=== PATIENT | female | born 1945 ===

== ENCOUNTER 2018-11-05 16:44 | Inpatient (IN) | payer MEDICARE ==
[2018-11-05 17:01] VITALS: BMI 15.5
--- NOTE | 2018-11-05 17:07 | ED PDOC ---
Arrival/HPI - General Time Seen by Provider: 11/05/18 16:46 - History of Present Illness Narrative History of Present Illness (Text): 11/05/18 17:05 Patient is a 73 y/o F with COPD, on 2L home O2, presenting with shortness of breath. Reports worsening shortness of breath x 2 weeks. Reports using nebulizer without relief. Reports some leg swelling and dyspnea on exertion. Reports baseline cough. Denies fever, chest pain, abdominal pain, or urinary complaints. Family/Social History Family/Social History: No Known Family HX Allergies/Home Meds Allergies/Adverse Reactions: Allergies No Known Allergies Allergy (Unverified 11/05/18 17:00) Review of Systems - Review of Systems Constitutional: absent: Fatigue, Fevers Respiratory: SOB, Cough, Sputum, Wheezing Cardiovascular: Chest Pain, Edema. absent: Palpitations Gastrointestinal: absent: Abdominal Pain, Constipation, Diarrhea, Nausea, Vomiting Genitourinary Female: absent: Dysuria, Frequency Neurological: absent: Headache, Dizziness Physical Exam Vital Signs Temp Pulse Resp BP Pulse Ox 11/05/18 17:01 98.5 F 90 18 153/101 H 100 Temperature: Afebrile Blood Pressure: Normal Pulse: Regular Respiratory Rate: Tachypneic Appearance: Positive for: Well-Appearing, Non-Toxic Pain Distress: None Mental Status: Positive for: Alert and Oriented X 3 - Systems Exam Head: Present: Atraumatic, Normocephalic Pupils: Present: PERRL Extroacular Muscles: Present: EOMI Conjunctiva: Present: Normal Mouth: Present: Moist Mucous Membranes Neck: Present: Normal Range of Motion Respiratory/Chest: Present: Accessory Muscle Use, Wheezes, Rales Cardiovascular: Present: Regular Rate and Rhythm, Normal S1, S2. No: Murmurs Abdomen: No: Tenderness, Distention Upper Extremity: Present: Normal Inspection Lower Extremity: Present: Edema Medical Decision Making ED Course and Treatment: 11/05/18 17:06 EKG shows NSR at 89bpm with RBBB and t wave inversions in multiple leads with no prior for comparison. 11/05/18 18:27 Cxray shows chf vs r sided infiltrate. Trop x 1 negative. BNP elevated. Patient appears to be in new onset chf. Aspirin and lasix ordered. Duonebs and steroids ordered in case some component of copd. Pending cta 11/05/18 20:45 Nurse reported that patient desaturated after CTA. Went to reevaluate and patient reports feeling better. She is requesting medication to sleep. O2 sat:89% on 2L NC. Bipap ordered for symptom mgmt 11/05/18 20:48 Dr. Weeks at bedside and accepts patient to his service with pulmonary and cardiology consults. 11/05/18 21:05 IMPRESSION: 1. No evidence of PE. 2. Bilateral apical pleural bullae are noted; more pronounced on the right. 3. Questionable right upper lobe pneumonic infiltrate versus interstitial scarring. 4. Interstitial pulmonary fibrosis seen in the right middle lobe and right lower lobe. 5. 7.0 mm nodule in the left apexversus focal scarring. Tissue sampling could be considered. 6. Mediastinal and bihilar adenopathy noted. 7. A small right pleural effusion is present. 8. 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 11/05/18 21:06 - RAD Interpretation Radiology Orders: 11/05/18 17:00 CHEST PORTABLE [RAD] Stat Disposition/Present on Arrival - Present on Arrival Any Indicators Present on Arrival: No - Disposition Have Diagnosis and Disposition been Completed?: Yes Diagnosis: Congestive heart failure, COPD (chronic obstructive pulmonary disease) Disposition: HOSPITALIZED Disposition Time: 17:01 Patient Plan: Admission Patient Problems: Current Active Problems Problem Status Onset COPD (chronic obstructive pulmonary disease) Acute Congestive heart failure Acute Condition: FAIR Discharge Instructions (ExitCare): Heart Failure (ED)
[2018-11-05] MEDS: Albuterol-Ipratrop 3 mg / 0.5 (3 ml) UD IH SCH ×3 (17:27→18:04)
[2018-11-05 17:30] LABS: BASO # 0.01 K/mm3 (0.0-2.0); BASO % 0.2 % (0.0-3.0); EOS # 0.2 (0.0-0.7); EOS % 3.5 % (1.5-5.0); HEMOGLOBIN 9.9 g/dL (12.0-16.0); LYMPH # 0.8 (1.2-3.4); LYMPH % 13.1 % (22.0-35.0); MEAN CELL VOLUME 83.6 fl (80.0-105.0); MEAN CORPUSCULAR HEMOGLOBIN 25.8 pg (25.0-35.0); MEAN CORPUSCULAR HGB CONC 30.8 g/dl (31.0-37.0); MEAN PLATELET VOLUME 9.8 fl (7.0-11.0); MONO # 0.3 (0.1-0.6); MONO % 4.7 % (1.0-6.0); RBC 3.84 10^6/uL (3.5-6.1); RED CELL DISTRIBUTION WIDTH 17.4 % (11.5-14.5); WHITE BLOOD COUNT 6.4 10^3/uL (4.5-11.0)
[2018-11-05 17:39] LABS: ALB/GLOB RATIO 0.8 (1.1-1.8); ALBUMIN 3.8 g/dL (3.0-4.8); ALT/SGPT 9 U/L (7-56); AST/SGOT 27 U/L (14-36); BLOOD UREA NITROGEN 10 mg/dL (7-21); CALCIUM 9.2 mg/dL (8.4-10.5); GFR NON-AFRICAN AMERICAN > 60
[2018-11-05 17:51] LABS: B-TYPE NATRIURETIC PEPTIDE 4910 pg/mL (0-450); TROPONIN I < 0.01 ng/mL
[2018-11-05 17:59] LABS: INR 1.14; PARTIAL THROMBOPLASTIN TIME 31.4 Seconds (26.9-38.3); PROTHROMBIN TIME 12.7 SECONDS (9.4-12.5)
[2018-11-06] MEDS ORDERED: Levalbuterol 1.25 MG/3 ML Inhal Soln UD IH PRN (07:07)
--- NOTE | 2018-11-06 07:57 | RAD ---
Date of service: 11/05/2018 HISTORY: chest pain' COMPARISON: No prior. TECHNIQUE: 1 view obtained. FINDINGS: LUNGS: Infiltrates are seen in the right lower lobe in the right lung apex. PLEURA: Small right pleural effusion CARDIOVASCULAR: No aortic atherosclerotic calcification present. Mild cardiomegaly mild vascular congestion OSSEOUS STRUCTURES: No significant abnormalities. VISUALIZED UPPER ABDOMEN: Normal. OTHER FINDINGS: None. IMPRESSION: Infiltrates are seen in the right lower lobe and right lung apex
[2018-11-06] MEDS ORDERED: Arformoterol 15 mcg/2 ml Inh Sol IH SCH (08:00)
[2018-11-06] MEDS: Budesonide 0.5 mg/2 ml Inhal Susp UD IH SCH ×2 (08:08→19:17)
[2018-11-06] MEDS: Arformoterol 15 mcg/2 ml Inh Sol IH SCH ×2 (08:08→19:17)
[2018-11-06] MEDS: MethylPREDNISolone 40 mg Vial IVP SCH ×3 (08:32→22:40)
[2018-11-06] MEDS ORDERED: cefTRIAXone 1 gm 1 GM/100 ML BAG IVPB SCH (10:00)
[2018-11-06] MEDS ORDERED: Azithromycin 500MG/NS 250ml 500 MG/250 ML BAG IVPB SCH (10:00)
[2018-11-06] MEDS: Enoxaparin 40 mg Syringe SC SCH (10:19)
--- NOTE | 2018-11-06 11:15 | CT ---
Date of service: 11/05/2018 PROCEDURE: CT Chest with contrast (Pulmonary Angiogram) HISTORY: new onset sob, elevated d-dimer COMPARISON: None available. TECHNIQUE: Axial computed tomography images were obtained of the chest in the pulmonary arterial phase of enhancement. Coronal and sagittal reformatted images were created and reviewed. Intravenous contrast dose: 144 cc of Omnipaque 350 Radiation dose: Total exam DLP = 133.74 mGy-cm. This CT exam was performed using one or more of the following dose reduction techniques: Automated exposure control, adjustment of the mA and/or kV according to patient size, and/or use of iterative reconstruction technique. FINDINGS: PULMONARY ARTERIES: Unremarkable. No pulmonary embolism. AORTA: No acute findings. No thoracic aortic aneurysm. Minimal aortic calcification. Mild dilatation of the descending aorta LUNGS: There is pulmonary fibrosis most severe in the right lower lobe and the right upper lobe. Multiple bulla are seen. There is a 15 mm nodule in the right apex within the fibrosis. There is also a 6 mm nodule in the left lung apex. PLEURAL SPACES: Small right pleural effusion HEART: Unremarkable. No cardiomegaly. No significant pericardial effusion. LYMPH NODES: No lymphadenopathy. BONES, CHEST WALL: Unremarkable. No fracture or destructive lesion OTHER FINDINGS: The report concurs with the preliminary [facility] report IMPRESSION: There is pulmonary fibrosis most severe in the right lower lobe and the right upper lobe. Multiple bulla are seen. There is a 15 mm nodule in the right apex within the fibrosis. There is also a 6 mm nodule in the left lung apex. No evidence of pulmonary emboli
--- NOTE | 2018-11-06 11:40 | CARD ---
APPROVED REPORT Date of service: 11/05/2018 EKG Measurement Heart [id number] <Conclusion> Normal sinus rhythm Possible Left atrial enlargement Right bundle branch block T wave abnormality, consider inferolateral ischemia Abnormal ECG
[2018-11-06] MEDS ORDERED: Iohexol 300 100 ML IJ ONE (12:30)
--- NOTE | 2018-11-06 12:48 | CON ---
DATE OF CONSULTATION: 11/06/2018 REASON FOR CONSULTATION: Cardiac evaluation, elevated BNP, rule out congestive heart failure, shortness of breath. BRIEF CLINICAL HISTORY: This is a 73-year-old female with past medical history significant for colon cancer status post resection in 2003, history of lung CA status post chemoradiation, COPD, on home oxygen; used to take Percocet for chest pain, came in here with progressively worsening shortness of breath. The patient is on home oxygen 2 liters, history of COPD, also complained of chest pain and takes Percocet. The chest pain comes with taking a deep breath and on coughing. Denies any feeling that heaviness in the chest, something is sitting in the chest or ripping sensation in the chest. PAST MEDICAL HISTORY: Past history is significant for back pain, history of COPD, history of colon cancer status post resection in 2001, history of lung tumor status post chemo and radiation. SOCIAL HISTORY: He quit smoking 10-11 years ago. Denies any history of alcohol abuse. CURRENT MEDICATIONS: The patient is taking Tylenol with Codeine, ibuprofen, and Advair, and home oxygen 2 liters. REVIEW OF SYSTEMS: As per HPI. PHYSICAL EXAMINATION: As for the height of the patient, 5 feet 2 inches, weight of the patient is 85 pounds, body mass index 15.5 kg per meter square. VITAL SIGNS: Temperature afebrile, heart rate 84, blood pressure 137/89. HEENT: PERRLA. Extraocular muscles intact. NECK: Supple. No carotid bruits or thyromegaly. CHEST: Clear to auscultation. HEART: S1 and S2 regular. ABDOMEN: Soft. EXTREMITIES: Clubbing and cyanosis, negative. LABORATORY DATA: EKG shows normal sinus, rate of 81, left atrial abnormality, right bundle-branch block, T-wave inversion in precordial leads. Chest x-ray consistent with a right lower lobe pneumonia. Blood workup as follows: WBC 6.1, hemoglobin 9.1, hematocrit 32.1, platelet count 292. Chemistry shows sodium 141, potassium 4.5, chloride 102, carbon dioxide 28, anion gap of 60, BUN 10, and creatinine 0.8. Troponin 0.01. BNP 4972, total protein 8.5, bilirubin 3.8, albumin-globulin ratio is 0.8. IMPRESSION: A 73-year-old female with past medical history significant for colon cancer status post resection in 2003, history of lung tumor diagnosed in 2010, status post chemo, status post radiation, on home oxygen for chronic obstructive pulmonary disease, admitted with worsening shortness of breath, cannot rule out early pneumonia, right lower lobe. CAT scan result is officially pending, but shows no evidence of pulmonary embolism, bilateral pleural bleb noted, more pronounced at the right, possibly right lower lobe pneumonia, a pulmonary node of 7 mm inside, mediastinal and hilar lymphadenopathy noted. 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 RECOMMENDATIONS: We will get echo to assess LV function and etiology of congestive heart failure, so far no evidence of acute GA, more looks like acute exacerbation of COPD. Continue aggressive treatment of COPD. Continue gentle diuretics, keep negative fluid balance, and the patient is using noninvasive ventilator; continue the noninvasive ventilator BiPAP. We will follow with you. Overall, the patient's critical long-term prognosis is guarded. The patient is very cachectic. We will get lipid profile, TSH, hemoglobin A1c as well. Continue broad-spectrum antibiotic. Continue DVT prophylaxis. Continue IV Lasix. We will increase the Lasix to 40 b.i.d. for today and tomorrow, and then will change it to once a day from tomorrow. Thank you, Dr. Weeks, for providing us the opportunity of taking care of the patient. Rosa Griffin MD
--- NOTE | 2018-11-06 13:32 | CON ---
DATE: 11/06/2018 PULMONARY CONSULT NOTE REFERRING PHYSICIAN: Steven Weeks MD REASON FOR CONSULT: COPD and shortness of breath. HISTORY OF PRESENT ILLNESS: This is a 73-year-old female with past medical history significant for chronic obstructive pulmonary disease, emphysema, has home oxygen 2 liters at home. The patient presented to the emergency room complaining of worsening shortness of breath for the past 2 weeks. Has been using her nebulizer treatments without relief. Also reported in the ER lower extremity swelling, dyspnea on exertion. Today, the patient seen sitting up in bed with daughter at bedside. Reports that she has productive cough, increase shortness of breath with exertion. Daughter and the patient both report that the patient at baseline typically has cough and typically gets short of breath with extensive exertion. Reports that symptoms recently have worsened. The patient also reports nasal congestion. PAST MEDICAL HISTORY: As per history of present illness. ALLERGIES: NO KNOWN ALLERGIES. SOCIAL HISTORY: Former smoker, quit 10 years ago. No EtOH abuse. No illicit drug use. FAMILY HISTORY: No significant cardiopulmonary disease reported. MEDICATIONS: Reviewed. Tylenol 650 every 6 hours p.r.n. for mild pain, Brovana 15 mcg inhalation every 12 hours, aspirin 81 mg daily, Zithromax 500 mg daily, Pulmicort 0.5 mg inhalation twice a day, Rocephin 1 g daily, Lovenox 40 mg subcutaneous daily, Lasix 40 mg IV push daily and Xopenex 1.25 mg inhalation every 6 hours, Solu-Medrol 40 mg IV push every 8 hours, Protonix 40 mg daily and potassium chloride 20 mEq one time dose. REVIEW OF SYSTEMS: No headache, chest pain, abdominal pain, nausea, vomiting, diarrhea and leg pain reported. The patient reports that she has leg swelling at home and when coming to the emergency room, but leg swelling has got down. Still reports productive cough, shortness of breath with exertion and nasal congestion. PHYSICAL EXAMINATION: VITAL SIGNS: Blood pressure 137/89, pulse 84, temperature 98.9 and oxygen saturation 97% on BiPAP. GENERAL: No acute distress. HEENT: Moist mucous membranes. Mallampati score of 4. Crowded airway. NECK: Supple. No JVD. LUNGS: Decreased breath sounds bilaterally, some scattered rhonchi. CARDIOVASCULAR: S1 and S2. ABDOMEN: Soft and nontender. No distention. No organomegaly. EXTREMITIES: No bilateral lower extremity edema. NEUROLOGIC: Awake, alert and verbal. Following commands. LABORATORY DATA: Reviewed. WBC 6.4, RBC 3.84, hemoglobin 9.9, hematocrit 32.1 and platelets 292. PT 12.7, INR 1.14 and APTT 31.4. D-dimer 2291. Sodium 141, potassium 4.5, chloride 102, carbon dioxide 28, anion gap 16, BUN 10, creatinine 0.8, GFR is greater than 60, random glucose 93, calcium 9.2, total bilirubin 0.3, AST 27, ALT 9, alkaline phosphatase 105, lactate dehydrogenase 361, total creatine kinase 53, troponin less than 0.01, proBNP 4910, total protein 8.5, albumin 3.8, globulin 4.8 and albumin-globulin ratio 0.8. EKG shows normal sinus rhythm, possible left atrial enlargement, right bundle-branch block and T wave abnormality. Chest CT shows pulmonary fibrosis more severe to the right lower lobe and right upper lobe, multiple bullae 15 mm nodule in the right apex within the fibrosis fibrosis 6 mm nodule in the left lung apex. No evidence of pulmonary emboli. IMPRESSION AND PLAN: Chronic obstructive pulmonary disease, emphysema and congestive heart failure. The patient uses oxygen at home. Agreed with present treatment. Continue inhaled bronchodilators, antibiotic therapy, deep venous thrombosis prophylaxis and gastric prophylaxis. Continue current steroid dosing. We will order ABG to be done today. Procalcitonin level to be drawn today. We will place the patient on 310 mg at bedtime chronic lung disease. Echocardiogram ordered. We will followup when available. We will order CT of the abdomen and pelvis with contrast. Rule out any mass or tumor. The patient will need followup CAT scan of the chest to show stability of lung nodules. May need further malignancy workup pending. Test results to suspect sleep apnea in this patient as well. Head of bed elevated 45 degrees. Sleep apnea precaution. The patient was seen and examined with Dr. Martinez. Discussed assessment and plan as described above. The patient was seen and examined with Sebas Ansari, nurse practitioner. Discussed assessment and plan as described above. Thank you for this consult and we will follow with you. Coty Mullen APN Rosa Martinez MD [facility]
--- NOTE | 2018-11-06 13:59 | CT ---
Date of service: 11/06/2018 PROCEDURE: CT Abdomen and Pelvis with contrast HISTORY: r/o mass/tumor COMPARISON: None. TECHNIQUE: Contrast dose: 100 cc of Omni 300 Radiation dose: Total exam DLP = 180.43 mGy-cm. This CT exam was performed using one or more of the following dose reduction techniques: Automated exposure control, adjustment of the mA and/or kV according to patient size, and/or use of iterative reconstruction technique. FINDINGS: LOWER THORAX: Small right pleural effusion. Emphysema and fibrosis at the right lung base LIVER: Unremarkable. No gross lesion or ductal dilatation. GALLBLADDER AND BILE DUCTS: Unremarkable. PANCREAS: Unremarkable. No gross lesion or ductal dilatation. SPLEEN: Unremarkable. ADRENALS: Unremarkable. No mass. KIDNEYS AND URETERS: Unremarkable. No hydronephrosis. No solid mass. VASCULATURE: There is aortic dilatation just above the level of the diaphragm with mural thrombus. The aorta measures 4.6 cm at this level. Aortic calcification. Aortoiliac stent graft. BOWEL: Constipation. No evidence of bowel obstruction. APPENDIX: Normal appendix. PERITONEUM: Unremarkable. No free fluid. No free air. LYMPH NODES: Unremarkable. No enlarged lymph nodes. BLADDER: Unremarkable. REPRODUCTIVE: Unremarkable. BONES: No acute fracture. OTHER FINDINGS: None. IMPRESSION: No acute intra-abdominal findings.
[2018-11-06 14:12] LABS: ARTERIAL BLOOD GAS HCO3 28.2 mmol/L (21-28); ARTERIAL BLOOD GAS HEMOGLOBIN 10.8 g/dL (11.7-17.4); ARTERIAL BLOOD GAS O2 CAPACITY 14.8 mL/dl (16-24); ARTERIAL BLOOD GAS O2 CONTENT 14.1 ML/dl (15-23); ARTERIAL BLOOD GAS PCO2 37 mm/Hg (35-45); ARTERIAL BLOOD GAS PH 7.49 (7.35-7.45); ARTERIAL BLOOD GAS TCO2 29.3 mmol.L (22-28)
--- NOTE | 2018-11-06 14:16 | HP ---
DATE OF EXAM: 11/05/2018 A 73-year-old female who came in with dyspnea. HISTORY OF PRESENT ILLNESS: This is a 73-year-old female who was visiting her daughter in [facility]. She came from [place], [place] and she found to be in short of breath and distress in two days that seems getting worse. She also noted her ankles got edematous. No chest pain. No fever. She did have some more cough and came to the ER for evaluation. The patient does use 2 L nasal cannula at home. She had emphysema, and she had a surgery of lung surgery; it looks like a pleural surgery that is more than 10 years ago. The patient is a smoker in the past, not anymore. She quit many years ago. There was no any other complaint. No chest pain. No nausea. No vomiting. No fever. HOME MEDICATIONS: She takes oxygen. She takes Advair and she takes Tylenol for pain. ALLERGIES: SHE HAS NO KNOWN ALLERGY. FAMILY HISTORY: Noncontributory. SOCIAL HISTORY: No alcohol, no drugs. She quit smoking many years ago. REVIEW OF SYSTEMS: She almost feel weak, tired, short of breath, that is noted. She also has some acid reflux symptoms, but other than that she seems okay. She also has joint pain in her both knees, lower back and which is chronic musculoskeletal symptoms. Urine is okay. No dizziness. No focal weakness. Otherwise, the rest of review of systems is negative. PHYSICAL EXAMINATION: GENERAL: The patient was seen in emergency room on 11/05/2018. VITAL SIGNS: Temperature is 98.6, heart rate 81, blood pressure is 125/69, respiration 23, and saturating 99% on BiPAP. HEAD AND NECK: Normal. No JVD. No thyromegaly, but she has very thin neck muscles. CHEST: Diminished breath sounds in both . There are few rales on the left. CARDIAC: First sound and second sound normal. No murmur, rub, or gallop. ABDOMEN: Soft. Scaphoid nontender. EXTREMITIES: No edema except ankle edema bilaterally. NEUROLOGIC: Normal. LABORATORY DATA: Her laboratory study shows the following; white count 6.4, hemoglobin 9.9, hematocrit 32.1, and platelets 292. Her chemistry; sodium 141, potassium 4.5, chloride 102, bicarb 28, BUN is 10, and creatinine 0.8. Liver function test is normal. Troponin is negative. ProBNP is 4910. Total protein 8.5. Chest x-ray and CT of chest were read as possible infiltrate, emphysema. There is no PE. EKG was mentioned there is no ST changes. IMPRESSION: This is 73-year-old female with history of emphysema, came in with dyspnea, short of breath, cough, and she also noted ankle edema, high BNP, CT chest with possible interstitial markings and infiltrates. We will admit the patient for; 1. Acute chronic obstructive pulmonary disease exacerbation. 2. Community-acquired pneumonia. 3. Congestive heart failure. PLAN: 1. Give IV steroids, inhaled and IV bronchodilators, BIPAP machine, and pulmonary consult. 2. Also IV Lasix, we will give her 20 IV daily. 3. We will get a Cardiology consultation. Dr. Griffin to evaluate the cardiac situation. Her troponin is negative and possible get an echo and possible nuclear stress test. 4. She has anemia. The patient needs to be addressed this anemia. serum protein and electrophoresis with multiple myeloma, also possible GI evaluation for anemia. We will follow up clinically. Steven Weeks MD
[2018-11-06] MEDS: Oxycodone/Acetaminophen 5/325 mg Tab PO PRN ×2 (14:54→20:55)
[2018-11-06] MEDS ORDERED: Potassium Chloride 20 mEq ER Tab PO ONE (16:00)
[2018-11-06] MEDS: Cefepime 1gm in NS 100ml 1 GM/100 ML BAG IVPB SCH (21:39)
[2018-11-06] MEDS: Fluticasone Nasal 50 mcg/Spray NS SCH (22:55)
--- NOTE | 2018-11-06 23:42 | CP.PCM.CON ---
<FloraBaldemar Joi - Last Filed: 11/06/18 23:46> History of Present Illness - History of Present Illness History of Present Illness: Heme/onc consult note: Flora PGY - 2 Reason for consult: Anemia with High protein (myeloma concern) Consult requested by: Dr. Weeks 73 F presented to [facility] [place] [facility] with shortness of breath and ankle swelling. Patient is visiting her daughter in [place] but she is from [place]. Patient states that she has emphysema and uses 2L NC at home. Heme/onc was consulted because patient's labs revealed high total protein with anemia. 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 Review of Systems: 12 point ROS obtained and negative except as per HPI Surgical Hx: Pleural surgery for tumor Medical Hx: COPD, lung tumor Allergies: NKDA Social Hx: Quit smoking many years ago (60 PY history); denies illicits, alcohol Home Meds: Reviewed, as per MAR Family Hx: Non-contributory Past Patient History - Infectious Disease Hx of Infectious Diseases: None - Past Social History Smoking Status: x - CARDIAC Hx Cardiac Disorders: Yes - PULMONARY Hx Respiratory Disorders: Yes Hx Chronic Obstructive Pulmonary Disease (COPD): Yes - NEUROLOGICAL Hx Neurological Disorder: No - HEENT Hx HEENT Problems: No - RENAL Hx Chronic Kidney Disease: No - ENDOCRINE/METABOLIC Hx Endocrine Disorders: No - HEMATOLOGICAL/ONCOLOGICAL Hx Blood Disorders: No - INTEGUMENTARY Hx Dermatological Problems: No - MUSCULOSKELETAL/RHEUMATOLOGICAL Hx Musculoskeletal Disorders: No Hx Falls: No - GASTROINTESTINAL Hx Gastrointestinal Disorders: No - GENITOURINARY/GYNECOLOGICAL Hx Genitourinary Disorders: No - PSYCHIATRIC Hx Psychophysiologic Disorder: No Hx Substance Use: No - SURGICAL HISTORY Hx Surgeries: No Meds Allergies/Adverse Reactions: Allergies Allergy/AdvReac Type Severity Reaction Status Date / Time No Known Allergies Allergy Unverified 11/05/18 17:00 - Medications Medications: Current Medications Acetaminophen (Tylenol 325mg Tab) 650 mg PO Q6H PRN PRN Reason: Pain, Mild (1-3) Last Admin: 11/06/18 23:36 Dose: 650 mg Arformoterol Tartrate (Brovana) 15 mcg IH [id number] [facility] Last Admin: 11/06/18 19:17 Dose: 15 mcg Aspirin (Ecotrin) 81 mg PO DAILY [facility] Last Admin: 11/06/18 10:18 Dose: 81 mg Budesonide (Pulmicort Respules) 0.5 mg IH BIDRESP [facility] Last Admin: 11/06/18 19:17 Dose: 0.5 mg Doxycycline Hyclate (Doryx) 100 mg PO Q12 [facility]; Protocol Stop: 11/15/18 22:01 Last Admin: 11/06/18 21:39 Dose: 100 mg Enoxaparin Sodium (Lovenox) 40 mg SC DAILY [facility]; Protocol Last Admin: 11/06/18 10:19 Dose: 40 mg Fluticasone Propionate (Flonase) 1 actuation NS HS [facility] Last Admin: 11/06/18 22:55 Dose: Not Given Furosemide (Lasix) 40 mg IVP DAILY [facility] Last Admin: 11/06/18 10:21 Dose: 40 mg Cefepime HCl (Maxipime 1gm) 1 gm in 100 mls @ 100 mls/hr IVPB Q12 [facility]; Protocol Last Admin: 11/06/18 21:39 Dose: 100 mls/hr Levalbuterol HCl (Xopenex) 1.25 mg IH [id number] PRN PRN Reason: Shortness of Breath Methylprednisolone (Solu-Medrol) 40 mg IVP Q8H [facility] Last Admin: 11/06/18 22:40 Dose: 40 mg Montelukast Sodium (Singulair) 10 mg PO HS [facility] Last Admin: 11/06/18 21:39 Dose: 10 mg Oxycodone/Acetaminophen (Percocet 5/325 Mg Tab) 1 tab PO Q6H PRN PRN Reason: Pain, moderate (4-7) Stop: 11/09/18 12:26 Last Admin: 11/06/18 20:55 Dose: 1 tab Pantoprazole Sodium (Protonix Ec Tab) 40 mg PO ACB [facility] Verapamil HCl (Verapamil Inj) 2.5 mg IVP Q6 PRN PRN Reason: Heart rate Physical Exam - Constitutional Appears: Well - Head Exam Head Exam: ATRAUMATIC, NORMAL INSPECTION, NORMOCEPHALIC - Eye Exam Eye Exam: EOMI, Normal appearance, PERRL Pupil Exam: NORMAL ACCOMODATION, PERRL - ENT Exam ENT Exam: Mucous Membranes Moist, Normal Exam - Neck Exam Neck exam: Positive for: Normal Inspection - Respiratory Exam Respiratory Exam: Clear to Auscultation Bilateral, NORMAL BREATHING PATTERN - Cardiovascular Exam Cardiovascular Exam: REGULAR RHYTHM - GI/Abdominal Exam GI & Abdominal Exam: Normal Bowel Sounds, Soft. absent: Tenderness - Extremities Exam Extremities exam: Positive for: normal inspection - Back Exam Back exam: NORMAL INSPECTION - Neurological Exam Neurological exam: Alert, CN II-XII Intact, Normal Gait, Oriented x3, Reflexes Normal - Psychiatric Exam Psychiatric exam: Normal Affect, Normal Mood - Skin Skin Exam: Dry, Intact, Normal Color, Warm Results - Vital Signs Recent Vital Signs: Last Vital Signs Temp 97.7 F 11/06/18 22:58 Pulse 68 11/06/18 22:58 Resp 20 11/06/18 22:58 BP 134/84 11/06/18 22:58 Pulse Ox 95 11/06/18 22:58 - Labs Result Diagrams: 11/05/18 17:25 11/05/18 17:25 Labs: Laboratory Results - last 24 hr 11/06/18 11/06/18 11/06/18 14:09 14:50 15:00 pCO2 37 pO2 64.0 L HCO3 28.2 H ABG pH 7.49 H ABG Total CO2 29.3 H ABG O2 Saturation 95.0 ABG O2 Content 14.1 L ABG Base Excess 4.7 H ABG Hemoglobin 10.8 L ABG Carboxyhemoglobin 1.8 H POC ABG HHb (Measured) 4.9 ABG Methemoglobin 1.0 ABG O2 Capacity 14.8 L Hgb O2 Saturation 92.3 L FiO2 32.0 Carcinoembryonic Ag CA 19-9 Antigen 150 H Procalcitonin < 0.05 L 11/06/18 15:00 pCO2 pO2 HCO3 ABG pH ABG Total CO2 ABG O2 Saturation ABG O2 Content ABG Base Excess ABG Hemoglobin ABG Carboxyhemoglobin POC ABG HHb (Measured) ABG Methemoglobin ABG O2 Capacity Hgb O2 Saturation FiO2 Carcinoembryonic Ag 4.0 H CA 19-9 Antigen Procalcitonin Assessment & Plan - Assessment and Plan (Free Text) Assessment: 73 F with pertinent medical history of past malignancy presents with shortness of breath; Heme/onc consulted for evaluation for myeloma. Of note, CT Scan was reviewed which showed R sided effusion; patient with past history of malignancy is concerning. Patient did not have any bony lesions on CT scan and does not have hypercalcemia or renal failure. Plan - Alpha globin - Immunofixation - Free Neshanic/lambda - Neshanic light chain - Neshanic/lambda free with ratio - SPEP - Pleural effusion u/s to determine if the patient's effusion can be drained Thank you for this consult; we will follow with you <Zoey Pabon P - Last Filed: 11/07/18 16:11> Meds - Medications Medications: Current Medications Acetaminophen (Tylenol 325mg Tab) 650 mg PO Q6H PRN PRN Reason: Pain, Mild (1-3) Acetaminophen (Tylenol 325mg Tab) 650 mg PO Q6H PRN PRN Reason: Pain, severe (8-10) WITH CODEI Arformoterol Tartrate (Brovana) 15 mcg IH [id number] [facility] Last Admin: 11/07/18 07:42 Dose: 15 mcg Aspirin (Ecotrin) 81 mg PO DAILY [facility] Last Admin: 11/07/18 11:49 Dose: 81 mg Budesonide (Pulmicort Respules) 0.5 mg IH BIDRESP [facility] Last Admin: 11/07/18 07:42 Dose: 0.5 mg Codeine Sulfate (Codeine) 30 mg PO Q6H PRN PRN Reason: Pain, severe (8-10)WITH TYLENO Doxycycline Hyclate (Doryx) 100 mg PO Q12 [facility]; Protocol Stop: 11/15/18 22:01 Last Admin: 11/07/18 11:50 Dose: 100 mg Enoxaparin Sodium (Lovenox) 40 mg SC DAILY [facility]; Protocol Last Admin: 11/07/18 11:49 Dose: 40 mg Fluticasone Propionate (Flonase) 1 actuation NS HS [facility] Last Admin: 11/06/18 22:55 Dose: Not Given Furosemide (Lasix) 40 mg IVP DAILY [facility] Last Admin: 11/07/18 11:50 Dose: Not Given Furosemide (Lasix) 40 mg PO DAILY [facility] Cefepime HCl (Maxipime 1gm) 1 gm in 100 mls @ 100 mls/hr IVPB Q12 [facility]; Protocol Last Admin: 11/07/18 11:48 Dose: 100 mls/hr Levalbuterol HCl (Xopenex) 1.25 mg IH [id number] PRN PRN Reason: Shortness of Breath Methylprednisolone (Solu-Medrol) 40 mg IVP Q8H [facility] Last Admin: 11/07/18 14:31 Dose: 40 mg Montelukast Sodium (Singulair) 10 mg PO HS [facility] Last Admin: 11/06/18 21:39 Dose: 10 mg Pantoprazole Sodium (Protonix Ec Tab) 40 mg PO ACB [facility] Last Admin: 11/07/18 06:31 Dose: 40 mg Verapamil HCl (Verapamil Inj) 2.5 mg IVP Q6 PRN PRN Reason: Heart rate Results - Vital Signs Recent Vital Signs: Last Vital Signs Temp 97.6 F 11/07/18 12:00 Pulse 94 H 11/07/18 12:00 Resp 20 11/07/18 12:00 BP 121/82 11/07/18 12:00 Pulse Ox 97 11/07/18 05:33 - Labs Result Diagrams: 11/05/18 17:25 11/07/18 11:35 Labs: Laboratory Results - last 24 hr 11/06/18 11/06/18 11/06/18 09:30 14:50 15:00 Sodium Potassium Chloride Carbon Dioxide Anion Gap BUN Creatinine Est GFR ( Amer) Est GFR (Non-Af Amer) Random Glucose Calcium Total Protein (PEP) 8.6 H Carcinoembryonic Ag CA 19-9 Antigen 150 H Procalcitonin < 0.05 L IgG IgA IgM 11/06/18 11/06/18 11/07/18 15:00 15:00 11:35 Sodium 140 Potassium 3.6 Chloride 94 L Carbon Dioxide 33 Anion Gap 16 BUN 25 H Creatinine 0.8 Est GFR ( Amer) > 60 Est GFR (Non-Af Amer) > 60 Random Glucose 167 H Calcium 9.7 Total Protein (PEP) Carcinoembryonic Ag 4.0 H CA 19-9 Antigen Procalcitonin IgG 2643 H IgA 884 H IgM 62 Attending/Attestation - Attestation I have personally seen and examined this patient.: Yes I have fully participated in the care of the patient.: Yes I have reviewed all pertinent clinical information: Yes
[2018-11-07] MEDS: Oxycodone/Acetaminophen 5/325 mg Tab PO PRN (03:39)
[2018-11-07] MEDS: MethylPREDNISolone 40 mg Vial IVP SCH ×3 (06:27→23:12)
[2018-11-07] MEDS: Pantoprazole 40 mg EC Tab PO SCH (06:31)
[2018-11-07] MEDS: Arformoterol 15 mcg/2 ml Inh Sol IH SCH ×2 (07:42→22:53)
[2018-11-07] MEDS: Budesonide 0.5 mg/2 ml Inhal Susp UD IH SCH ×2 (07:42→22:53)
--- NOTE | 2018-11-07 09:46 | CP.PCM.CON ---
<Dung Yan - Last Filed: 11/07/18 14:53> History of Present Illness - History of Present Illness History of Present Illness: Infectious disease consult note: 73-year-old female with past medical history of colon cancer S/P resection in 2003, lung cancer with chemoradiation, COPD on home oxygen presents to the hospital for progressively worse shortness of breath and cough. Patient states that her shortness of breath started approximately 10 days ago and now has gotten progressively worse. She states that she is on home oxygen however she still felt short of breath. Patient denies any chest pain or heaviness in her chest. Patient also states that over the past few days she has also developed some ankle swelling. No other complaints infectious disease consulted for respiratory infection. 12 point ROS performed negative other than stated above PMH: As above PSH: Colon cancer status post resection, and pleural surgery for tumor Medications: Refer to MAR Allergies: No known allergies SH: Former smoker of 60 pack years, denies any drinking or drug use FH: Denies Review of Systems - Review of Systems All systems: reviewed and no additional remarkable complaints except Past Patient History - Infectious Disease Hx of Infectious Diseases: None - Past Social History Smoking Status: x - CARDIAC Hx Cardiac Disorders: Yes - PULMONARY Hx Respiratory Disorders: Yes Hx Chronic Obstructive Pulmonary Disease (COPD): Yes - NEUROLOGICAL Hx Neurological Disorder: No - HEENT Hx HEENT Problems: No - RENAL Hx Chronic Kidney Disease: No - ENDOCRINE/METABOLIC Hx Endocrine Disorders: No - HEMATOLOGICAL/ONCOLOGICAL Hx Blood Disorders: No - INTEGUMENTARY Hx Dermatological Problems: No - MUSCULOSKELETAL/RHEUMATOLOGICAL Hx Musculoskeletal Disorders: No Hx Falls: No - GASTROINTESTINAL Hx Gastrointestinal Disorders: No - GENITOURINARY/GYNECOLOGICAL Hx Genitourinary Disorders: No - PSYCHIATRIC Hx Psychophysiologic Disorder: No Hx Substance Use: No - SURGICAL HISTORY Hx Surgeries: No Meds Allergies/Adverse Reactions: Allergies Allergy/AdvReac Type Severity Reaction Status Date / Time No Known Allergies Allergy Unverified 11/05/18 17:00 - Medications Medications: Current Medications Acetaminophen (Tylenol 325mg Tab) 650 mg PO Q6H PRN PRN Reason: Pain, Mild (1-3) Last Admin: 11/07/18 06:26 Dose: 650 mg Arformoterol Tartrate (Brovana) 15 mcg IH [id number] [facility] Last Admin: 11/07/18 07:42 Dose: 15 mcg Aspirin (Ecotrin) 81 mg PO DAILY [facility] Last Admin: 11/06/18 10:18 Dose: 81 mg Budesonide (Pulmicort Respules) 0.5 mg IH BIDRESP [facility] Last Admin: 11/07/18 07:42 Dose: 0.5 mg Doxycycline Hyclate (Doryx) 100 mg PO Q12 [facility]; Protocol Stop: 11/15/18 22:01 Last Admin: 11/06/18 21:39 Dose: 100 mg Enoxaparin Sodium (Lovenox) 40 mg SC DAILY [facility]; Protocol Last Admin: 11/06/18 10:19 Dose: 40 mg Fluticasone Propionate (Flonase) 1 actuation NS HS [facility] Last Admin: 11/06/18 22:55 Dose: Not Given Furosemide (Lasix) 40 mg IVP DAILY [facility] Last Admin: 11/06/18 10:21 Dose: 40 mg Cefepime HCl (Maxipime 1gm) 1 gm in 100 mls @ 100 mls/hr IVPB Q12 [facility]; Protocol Last Admin: 11/06/18 21:39 Dose: 100 mls/hr Levalbuterol HCl (Xopenex) 1.25 mg IH [id number] PRN PRN Reason: Shortness of Breath Methylprednisolone (Solu-Medrol) 40 mg IVP Q8H [facility] Last Admin: 11/07/18 06:27 Dose: 40 mg Montelukast Sodium (Singulair) 10 mg PO HS [facility] Last Admin: 11/06/18 21:39 Dose: 10 mg Oxycodone/Acetaminophen (Percocet 5/325 Mg Tab) 1 tab PO Q6H PRN PRN Reason: Pain, moderate (4-7) Stop: 11/09/18 12:26 Last Admin: 11/07/18 03:39 Dose: 1 tab Pantoprazole Sodium (Protonix Ec Tab) 40 mg PO ACB [facility] Last Admin: 11/07/18 06:31 Dose: 40 mg Verapamil HCl (Verapamil Inj) 2.5 mg IVP Q6 PRN PRN Reason: Heart rate Physical Exam - Constitutional Appears: No Acute Distress - Head Exam Head Exam: ATRAUMATIC, NORMOCEPHALIC - Eye Exam Eye Exam: EOMI - ENT Exam ENT Exam: Mucous Membranes Moist - Respiratory Exam Respiratory Exam: Clear to Auscultation Bilateral, Wheezes. absent: Rales, Rhonchi - Cardiovascular Exam Cardiovascular Exam: REGULAR RHYTHM, +S1, +S2 - GI/Abdominal Exam GI & Abdominal Exam: Soft. absent: Distended, Tenderness - Extremities Exam Extremities exam: Negative for: calf tenderness, pedal edema - Neurological Exam Neurological exam: Alert, Oriented x3 - Psychiatric Exam Psychiatric exam: Normal Mood - Skin Skin Exam: Dry, Warm Results - Vital Signs Recent Vital Signs: Last Vital Signs Temp 97.7 F 11/07/18 05:33 Pulse 81 11/07/18 05:33 Resp 20 11/07/18 05:33 BP 125/77 11/07/18 05:33 Pulse Ox 97 11/07/18 05:33 - Labs Result Diagrams: 11/05/18 17:25 11/07/18 11:35 Labs: Laboratory Results - last 24 hr 11/06/18 11/06/18 11/06/18 09:30 14:09 14:50 pCO2 37 pO2 64.0 L HCO3 28.2 H ABG pH 7.49 H ABG Total CO2 29.3 H ABG O2 Saturation 95.0 ABG O2 Content 14.1 L ABG Base Excess 4.7 H ABG Hemoglobin 10.8 L ABG Carboxyhemoglobin 1.8 H POC ABG HHb (Measured) 4.9 ABG Methemoglobin 1.0 ABG O2 Capacity 14.8 L Hgb O2 Saturation 92.3 L FiO2 32.0 Total Protein (PEP) 8.6 H Carcinoembryonic Ag CA 19-9 Antigen Procalcitonin < 0.05 L IgG IgA IgM 11/06/18 11/06/18 11/06/18 15:00 15:00 15:00 pCO2 pO2 HCO3 ABG pH ABG Total CO2 ABG O2 Saturation ABG O2 Content ABG Base Excess ABG Hemoglobin ABG Carboxyhemoglobin POC ABG HHb (Measured) ABG Methemoglobin ABG O2 Capacity Hgb O2 Saturation FiO2 Total Protein (PEP) Carcinoembryonic Ag 4.0 H CA 19-9 Antigen 150 H Procalcitonin IgG 2643 H IgA 884 H IgM 62 Assessment & Plan - Assessment and Plan (Free Text) Assessment: Community-acquired pneumonia Elevated BNP Lung cancer Lung cancer status post resection COPD on home oxygen Anemia Continue with cefepime and doxycycline day 2 Follow-up septic work-up including blood, urine cultures and MRSA screen Procalcitonin is negative Follow-up with pleural effusion ultrasound for possible thoracentesis Follow-up cardiology and oncology recommendations Follow-up echo CT of the abdomen shows no acute findings Continue to monitor for any changes Case and plan to be reviewed and discussed with <Matias Nunes - Last Filed: 11/07/18 21:18> Meds - Medications Medications: Current Medications Acetaminophen (Tylenol 325mg Tab) 650 mg PO Q6H PRN PRN Reason: Pain, Mild (1-3) Acetaminophen (Tylenol 325mg Tab) 650 mg PO Q6H PRN PRN Reason: Pain, severe (8-10) WITH CODEI Arformoterol Tartrate (Brovana) 15 mcg IH [id number] [facility] Last Admin: 11/07/18 07:42 Dose: 15 mcg Aspirin (Ecotrin) 81 mg PO DAILY [facility] Last Admin: 11/07/18 11:49 Dose: 81 mg Budesonide (Pulmicort Respules) 0.5 mg IH BIDRESP [facility] Last Admin: 11/07/18 07:42 Dose: 0.5 mg Codeine Sulfate (Codeine) 30 mg PO Q6H PRN PRN Reason: Pain, severe (8-10)WITH TYLENO Last Admin: 11/07/18 17:19 Dose: 30 mg Doxycycline Hyclate (Doryx) 100 mg PO Q12 [facility]; Protocol Stop: 11/15/18 22:01 Last Admin: 11/07/18 11:50 Dose: 100 mg Enoxaparin Sodium (Lovenox) 40 mg SC DAILY [facility]; Protocol Last Admin: 11/07/18 11:49 Dose: 40 mg Fluticasone Propionate (Flonase) 1 actuation NS HS [facility] Last Admin: 11/06/18 22:55 Dose: Not Given Furosemide (Lasix) 40 mg IVP DAILY [facility] Last Admin: 11/07/18 11:50 Dose: Not Given Furosemide (Lasix) 40 mg PO DAILY [facility] Cefepime HCl (Maxipime 1gm) 1 gm in 100 mls @ 100 mls/hr IVPB Q12 [facility]; Protocol Last Admin: 11/07/18 11:48 Dose: 100 mls/hr Levalbuterol HCl (Xopenex) 1.25 mg IH [id number] PRN PRN Reason: Shortness of Breath Methylprednisolone (Solu-Medrol) 40 mg IVP Q8H [facility] Last Admin: 11/07/18 14:31 Dose: 40 mg Montelukast Sodium (Singulair) 10 mg PO HS [facility] Last Admin: 11/06/18 21:39 Dose: 10 mg Pantoprazole Sodium (Protonix Ec Tab) 40 mg PO ACB [facility] Last Admin: 11/07/18 06:31 Dose: 40 mg Verapamil HCl (Verapamil Inj) 2.5 mg IVP Q6 PRN PRN Reason: Heart rate Results - Vital Signs Recent Vital Signs: Last Vital Signs Temp 98 F 11/07/18 18:00 Pulse 111 H 11/07/18 18:00 Resp 20 11/07/18 18:00 BP 117/74 11/07/18 18:00 Pulse Ox 97 11/07/18 05:33 - Labs Result Diagrams: 11/05/18 17:25 11/07/18 11:35 Labs: Laboratory Results - last 24 hr 11/06/18 11/06/18 11/06/18 09:30 14:50 15:00 Sodium Potassium Chloride Carbon Dioxide Anion Gap BUN Creatinine Est GFR ( Amer) Est GFR (Non-Af Amer) Random Glucose Calcium Total Protein (PEP) 8.6 H CA 19-9 Antigen 150 H Procalcitonin < 0.05 L IgG IgA IgM 11/06/18 11/07/18 15:00 11:35 Sodium 140 Potassium 3.6 Chloride 94 L Carbon Dioxide 33 Anion Gap 16 BUN 25 H Creatinine 0.8 Est GFR ( Amer) > 60 Est GFR (Non-Af Amer) > 60 Random Glucose 167 H Calcium 9.7 Total Protein (PEP) CA 19-9 Antigen Procalcitonin IgG 2643 H IgA 884 H IgM 62 Assessment & Plan - Assessment and Plan (Free Text) Assessment: SEPSIS HCAP Attending/Attestation - Attestation I have personally seen and examined this patient.: Yes I have fully participated in the care of the patient.: Yes I have reviewed all pertinent clinical information: Yes
--- NOTE | 2018-11-07 11:27 | US ---
Date of service: 11/06/2018 PROCEDURE: HISTORY: Please evaluate if drainable pleural effusion COMPARISON: TECHNIQUE: FINDINGS: No evidence of left pleural effusion. Small right pleural effusion. IMPRESSION: No evidence of left pleural effusion. Small right pleural effusion.
[2018-11-07] MEDS: Cefepime 1gm in NS 100ml 1 GM/100 ML BAG IVPB SCH ×2 (11:48→23:08)
[2018-11-07] MEDS: Enoxaparin 40 mg Syringe SC SCH (11:49)
[2018-11-07 11:54] LABS: BLOOD UREA NITROGEN 25 mg/dL (7-21); CALCIUM 9.7 mg/dL (8.4-10.5); GFR NON-AFRICAN AMERICAN > 60
--- NOTE | 2018-11-07 14:22 | PN ---
DATE: 11/07/2018 REASON FOR CONSULTATION AND FOLLOWUP: Cardiac evaluation, elevated BNP, rule out congestive heart failure, shortness of breath. SUBJECTIVE: The patient is complaining of chest pain and wanted Percocet. PHYSICAL EXAMINATION: GENERAL: Mild respiratory distress, eating breakfast. VITAL SIGNS: Temperature afebrile, heart rate 81, and blood pressure 125/77. HEENT: PERRLA. Extraocular muscles intact. NECK: Supple. No carotid bruits or thyromegaly. CHEST: Clear to auscultation. HEART: S1, S2. Regular. ABDOMEN: Soft. EXTREMITIES: Clubbing, cyanosis negative. LABORATORY DATA: WBC 6.4, hemoglobin 9.9, hematocrit 32.1, platelet count 292. Chemistry shows sodium 141, potassium 4.5, chloride 102, carbon dioxide 28, anion gap of 16, BUN 10, creatinine 0.8. Troponin 0.01 negative. IMPRESSION: A 73-year-old female with extensive history of smoking, admitted with acute exacerbation of chronic obstructive pulmonary disease, history of lung cancer status post chemotherapy status post radiation, home oxygen, admitted with shortness of breath. History of colon cancer status post excision in 2003. A recent CAT scan shows no evidence of pulmonary embolism, bilateral pulmonary blood noted; more pronounced on the right than left. Right lower lobe pneumonia, 7 mm pulmonary nodule noted and mediastinal lymphadenopathy; follow up suggested. History of endovascular graft upper portion of the graft noted in the abdomen. RECOMMENDATIONS: Continue aggressive treatment for COPD. Follow up echo when it is done, review the echo. Continue DVT prophylaxis. Continue broad-spectrum antibiotic. Continue gentle Lasix to keep the negative fluid balance. Monitor electrolytes. We will give one dose of Lasix IV and put tomorrow for p.o. We will get a blood workup tomorrow. Blood workup is pending so far, nothing available. If it is not done, we will do a stat SMA-7 to assess electrolyte abnormality. If remaining stable, consider discontinuing telemetry. Thank you Dr. Weeks for providing us the opportunity in taking care of the patient Ileana Hoff. Rosa Griffin MD
--- NOTE | 2018-11-07 14:49 | PN ---
DATE: 11/07/2018 PULMONARY PROGRESS NOTE REFERRING PHYSICIAN: Steven Weeks MD SUBJECTIVE: The patient is seen sitting up in bed. No acute distress. No overnight events reported. Reports not wearing a BiPAP machine last night. States that she still gets short of breath that is improved since the admission. She still has productive cough. No headache, rhinitis, chest pain, abdominal pain, nausea, vomiting, diarrhea, leg pain and leg swelling reported. OBJECTIVE: VITAL SIGNS: Blood pressure 121/82, pulse 94, temperature 97.6 and oxygen saturation 97% on nasal cannula. GENERAL: No acute distress. HEENT: Moist mucous membranes. Mallampati score of 4. Crowded airway. NECK: Supple. No JVD. LUNGS: Decreased breath sounds bilaterally, few scattered rhonchi. CARDIOVASCULAR: S1 and S2. ABDOMEN: Soft and nontender. No distention. No organomegaly. EXTREMITIES: No bilateral lower extremity edema. NEUROLOGIC: Awake, alert and verbal. Following commands. MEDICATIONS: Reviewed. Tylenol 650 every 6 hours p.r.n., Brovana 15 mcg inhalation every 12 hours, aspirin 81 mg daily, Pulmicort inhalation twice a day, cefepime 1 g every 12 hours, doxycycline 100 mg every 12 hours, Lovenox 40 mg subcutaneous daily, Flonase nasal spray at bedtime, Lasix 40 mg IV push daily Xopenex 1.25 mg inhalation every 6 hours p.r.n., Solu-Medrol 40 mg every 8 hours, Singulair 10 mg at bedtime, Percocet 5/325 mg every 6 hours p.r.n., Protonix 40 mg a.c and verapamil 2.5 mg IV push every 6 hours p.r.n. LABORATORY DATA: Reviewed. PCO2 37, PO2 64, HDL 28.2. ABG; pH 7.49 and FiO2 32. Sodium 140, potassium 3.6, chloride 94, carbon dioxide 33, anion gap 16, BUN 25, creatinine 0.8, GFR is greater than 60, random glucose 167 and calcium 9.7. Procalcitonin less than 0.05. CA-19 antigen 150, carcinoma embryonic antigen 4.0, IgG 2643, IgA 84 and IgM 62. Ultrasound of pleural effusion shows no evidence of left pleural effusion, small right pleural effusion. Abdomen and pelvis CT shows no acute intraabdominal findings to small right pleural effusion emphysema and fibrosis at right lung base. Echocardiogram report pending. IMPRESSION AND PLAN: Community-acquired pneumonia, history of lung cancer, status post resection, chronic obstructive pulmonary disease at home on oxygen, anemia, congestive heart failure. Continue inhaled bronchodilators, antibiotic therapy, deep venous thrombosis prophylaxis and gastric prophylaxis. Continue current steroid dosing. Procalcitonin is negative. Echocardiogram ordered, report is still pending. Continue Hematology followup. The patient with bronchiectasis. We will need followup CAT scan of the chest to show stability of lung nodules. Suspect sleep apnea. This patient had head of bed elevated at 45 degrees. Sleep apnea precaution. We will need sleep study as outpatient. The patient was seen and examined with Dr. Martinez. Discussed assessment and plan as described above. The patient was seen and examined with Sebas Ansari, nurse practitioner. Discussed assessment and plan as described above. Thank you for this consult and we will follow with you. Coty Mullen APN Rosa Martinez MD [facility]
[2018-11-07] MEDS: Fluticasone Nasal 50 mcg/Spray NS SCH (23:23)
[2018-11-08] MEDS ORDERED: ACETAMINOPHEN PO ONE (04:28)
[2018-11-08] MEDS ORDERED: CODEINE PO ONE (04:28)
[2018-11-08] MEDS: Pantoprazole 40 mg EC Tab PO SCH (06:58)
[2018-11-08] MEDS: MethylPREDNISolone 40 mg Vial IVP SCH ×3 (06:58→23:13)
[2018-11-08 07:14] LABS: HEMOGLOBIN 10.4 g/dL (12.0-16.0); LYMPH # 0.7 (1.2-3.4); LYMPH % 10.2 % (22.0-35.0); MEAN CELL VOLUME 82.4 fl (80.0-105.0); MEAN CORPUSCULAR HEMOGLOBIN 25.7 pg (25.0-35.0); MEAN CORPUSCULAR HGB CONC 31.2 g/dl (31.0-37.0); MEAN PLATELET VOLUME 9.8 fl (7.0-11.0); MONO # 0.4 (0.1-0.6); MONO % 5.3 % (1.0-6.0); RBC 4.04 10^6/uL (3.5-6.1); RED CELL DISTRIBUTION WIDTH 17.4 % (11.5-14.5); WHITE BLOOD COUNT 7.2 10^3/uL (4.5-11.0)
--- NOTE | 2018-11-08 07:26 | CP.PCM.PN ---
<Dung Yan - Last Filed: 11/08/18 12:38> Subjective - Date & Time of Evaluation Date of Evaluation: 11/08/18 Time of Evaluation: 09:20 - Subjective Subjective: Infectious disease progress note: Patient seen and examined at bedside. No acute events overnight. States that her cough has improved. No fevers. 12 point ROS performed and negative unless stated above. Objective - Vital Signs/Intake and Output Vital Signs (last 24 hours): Temp Pulse Resp BP Pulse Ox 97.8 F 81 18 139/76 95 11/08/18 06:00 11/08/18 06:00 11/08/18 06:00 11/08/18 06:00 11/08/18 06:00 Intake and Output: 11/08/18 11/08/18 06:59 18:59 Intake Total 360 Balance 360 - Medications Medications: Current Medications Acetaminophen (Tylenol 325mg Tab) 650 mg PO Q6H PRN PRN Reason: Pain, Mild (1-3) Last Admin: 11/07/18 23:11 Dose: 650 mg Acetaminophen (Tylenol 325mg Tab) 650 mg PO Q6H PRN PRN Reason: Pain, severe (8-10) WITH CODEI Arformoterol Tartrate (Brovana) 15 mcg IH [id number] [facility] Last Admin: 11/07/18 22:53 Dose: 15 mcg Aspirin (Ecotrin) 81 mg PO DAILY [facility] Last Admin: 11/07/18 11:49 Dose: 81 mg Budesonide (Pulmicort Respules) 0.5 mg IH BIDRESP [facility] Last Admin: 11/07/18 22:53 Dose: 0.5 mg Codeine Sulfate (Codeine) 30 mg PO Q6H PRN PRN Reason: Pain, severe (8-10)WITH TYLENO Last Admin: 11/07/18 17:19 Dose: 30 mg Doxycycline Hyclate (Doryx) 100 mg PO Q12 [facility]; Protocol Stop: 11/15/18 22:01 Last Admin: 11/07/18 23:07 Dose: 100 mg Enoxaparin Sodium (Lovenox) 40 mg SC DAILY [facility]; Protocol Last Admin: 11/07/18 11:49 Dose: 40 mg Fluticasone Propionate (Flonase) 1 actuation NS HS [facility] Last Admin: 11/07/18 23:23 Dose: Not Given Furosemide (Lasix) 40 mg IVP DAILY [facility] Last Admin: 11/07/18 11:50 Dose: Not Given Furosemide (Lasix) 40 mg PO DAILY [facility] Cefepime HCl (Maxipime 1gm) 1 gm in 100 mls @ 100 mls/hr IVPB Q12 [facility]; Protocol Last Admin: 11/07/18 23:08 Dose: 100 mls/hr Levalbuterol HCl (Xopenex) 1.25 mg IH [id number] PRN PRN Reason: Shortness of Breath Methylprednisolone (Solu-Medrol) 40 mg IVP Q8H [facility] Last Admin: 11/08/18 06:58 Dose: 40 mg Montelukast Sodium (Singulair) 10 mg PO HS [facility] Last Admin: 11/07/18 23:08 Dose: 10 mg Pantoprazole Sodium (Protonix Ec Tab) 40 mg PO ACB [facility] Last Admin: 11/08/18 06:58 Dose: 40 mg Verapamil HCl (Verapamil Inj) 2.5 mg IVP Q6 PRN PRN Reason: Heart rate - Labs Labs: 11/08/18 06:36 11/07/18 11:35 PT 12.7 SECONDS (9.4-12.5) H 11/05/18 17:25 INR 1.14 11/05/18 17:25 APTT 31.4 Seconds (26.9-38.3) 11/05/18 17:25 - Constitutional Appears: No Acute Distress - Head Exam Head Exam: ATRAUMATIC, NORMOCEPHALIC - Eye Exam Eye Exam: EOMI - ENT Exam ENT Exam: Mucous Membranes Moist - Respiratory Exam Respiratory Exam: Clear to Ausculation Bilateral. absent: Rales, Rhonchi - Cardiovascular Exam Cardiovascular Exam: REGULAR RHYTHM, +S1, +S2 - GI/Abdominal Exam GI & Abdominal Exam: Soft. absent: Tenderness - Extremities Exam Extremities Exam: absent: Calf Tenderness, Pedal Edema - Neurological Exam Neurological Exam: Alert, Awake - Psychiatric Exam Psychiatric exam: Normal Mood - Skin Skin Exam: Dry, Warm Assessment and Plan - Assessment and Plan (Free Text) Assessment: Sepsis with RLL CAP Acute CHF exacerbation with systolic dys Lung cancer Lung cancer status post resection COPD on home oxygen Anemia Continue with cefepime and doxycycline day 3 of 4-7 days of therapy Follow-up septic work-up including blood, urine cultures and MRSA screen Procalcitonin is negative, f/u repeat CXR shows RLL infiltrate, CT chest shows fibrosis and lung nodules Follow-up cardiology and oncology recommendations CT of the abdomen shows no acute findings Continue to monitor for any changes Case and plan to be reviewed and discussed with Dr. Nunes <Matias Nunes - Last Filed: 11/08/18 12:39> Objective - Vital Signs/Intake and Output Vital Signs (last 24 hours): Temp Pulse Resp BP Pulse Ox 98.4 F 89 18 140/95 H 95 11/08/18 12:00 11/08/18 12:00 11/08/18 12:00 11/08/18 12:00 11/08/18 06:00 Intake and Output: 11/08/18 11/08/18 06:59 18:59 Intake Total 360 Balance 360 - Medications Medications: Current Medications Acetaminophen (Tylenol 325mg Tab) 650 mg PO Q6H PRN PRN Reason: Pain, Mild (1-3) Last Admin: 11/08/18 11:33 Dose: 650 mg Acetaminophen (Tylenol 325mg Tab) 650 mg PO Q6H PRN PRN Reason: Pain, severe (8-10) WITH CODEI Arformoterol Tartrate (Brovana) 15 mcg IH [id number] [facility] Last Admin: 11/08/18 08:11 Dose: 15 mcg Aspirin (Ecotrin) 81 mg PO DAILY [facility] Last Admin: 11/08/18 11:03 Dose: 81 mg Budesonide (Pulmicort Respules) 0.5 mg IH BIDRESP [facility] Last Admin: 11/08/18 08:11 Dose: 0.5 mg Codeine Sulfate (Codeine) 30 mg PO Q6H PRN PRN Reason: Pain, severe (8-10)WITH TYLENO Last Admin: 11/08/18 11:33 Dose: 30 mg Doxycycline Hyclate (Doryx) 100 mg PO Q12 [facility]; Protocol Stop: 11/15/18 22:01 Last Admin: 11/08/18 11:03 Dose: 100 mg Enoxaparin Sodium (Lovenox) 40 mg SC DAILY [facility]; Protocol Last Admin: 11/08/18 11:04 Dose: 40 mg Fluticasone Propionate (Flonase) 1 actuation NS HS [facility] Last Admin: 11/07/18 23:23 Dose: Not Given Furosemide (Lasix) 40 mg IVP DAILY [facility] Last Admin: 11/08/18 11:04 Dose: Not Given Furosemide (Lasix) 40 mg PO DAILY [facility] Last Admin: 11/08/18 11:03 Dose: 40 mg Cefepime HCl (Maxipime 1gm) 1 gm in 100 mls @ 100 mls/hr IVPB Q12 [facility]; Protocol Last Admin: 11/08/18 11:05 Dose: 100 mls/hr Levalbuterol HCl (Xopenex) 1.25 mg IH [id number] PRN PRN Reason: Shortness of Breath Methylprednisolone (Solu-Medrol) 40 mg IVP Q8H [facility] Last Admin: 11/08/18 06:58 Dose: 40 mg Montelukast Sodium (Singulair) 10 mg PO HS [facility] Last Admin: 11/07/18 23:08 Dose: 10 mg Pantoprazole Sodium (Protonix Ec Tab) 40 mg PO ACB [facility] Last Admin: 11/08/18 06:58 Dose: 40 mg Verapamil HCl (Verapamil Inj) 2.5 mg IVP Q6 PRN PRN Reason: Heart rate - Labs Labs: 11/08/18 06:36 11/08/18 06:36 PT 12.7 SECONDS (9.4-12.5) H 11/05/18 17:25 INR 1.14 11/05/18 17:25 APTT 31.4 Seconds (26.9-38.3) 11/05/18 17:25 Attending/Attestation - Attestation I have personally seen and examined this patient.: Yes I have fully participated in the care of the patient.: Yes I have reviewed all pertinent clinical information, including history, physical exam and plan: Yes
[2018-11-08 07:47] LABS: ALB/GLOB RATIO 0.8 (1.1-1.8); ALBUMIN 3.8 g/dL (3.0-4.8); ALT/SGPT 12 U/L (7-56); AST/SGOT 38 U/L (14-36); BLOOD UREA NITROGEN 30 mg/dL (7-21); CALCIUM 9.3 mg/dL (8.4-10.5); GFR NON-AFRICAN AMERICAN > 60
--- NOTE | 2018-11-08 08:05 | CP.PCM.PN ---
Subjective - Date & Time of Evaluation Date of Evaluation: 11/08/18 Time of Evaluation: 06:15 - Subjective Subjective: Awake, alert, no distress Reason for consultation and follow up:Cardiac evaluation of elevated BNP, admitted for shortness of breath, ruled out congestive heart failure Seen and examined by me and Dr. Griffin Objective - Vital Signs/Intake and Output Vital Signs (last 24 hours): Temp Pulse Resp BP Pulse Ox 97.8 F 81 18 139/76 95 11/08/18 06:00 11/08/18 06:00 11/08/18 06:00 11/08/18 06:00 11/08/18 06:00 Intake and Output: 11/08/18 11/08/18 06:59 18:59 Intake Total 360 Balance 360 - Medications Medications: Current Medications Acetaminophen (Tylenol 325mg Tab) 650 mg PO Q6H PRN PRN Reason: Pain, Mild (1-3) Last Admin: 11/07/18 23:11 Dose: 650 mg Acetaminophen (Tylenol 325mg Tab) 650 mg PO Q6H PRN PRN Reason: Pain, severe (8-10) WITH CODEI Arformoterol Tartrate (Brovana) 15 mcg IH [id number] [facility] Last Admin: 11/07/18 22:53 Dose: 15 mcg Aspirin (Ecotrin) 81 mg PO DAILY [facility] Last Admin: 11/07/18 11:49 Dose: 81 mg Budesonide (Pulmicort Respules) 0.5 mg IH BIDRESP [facility] Last Admin: 11/07/18 22:53 Dose: 0.5 mg Codeine Sulfate (Codeine) 30 mg PO Q6H PRN PRN Reason: Pain, severe (8-10)WITH TYLENO Last Admin: 11/07/18 17:19 Dose: 30 mg Doxycycline Hyclate (Doryx) 100 mg PO Q12 [facility]; Protocol Stop: 11/15/18 22:01 Last Admin: 11/07/18 23:07 Dose: 100 mg Enoxaparin Sodium (Lovenox) 40 mg SC DAILY [facility]; Protocol Last Admin: 11/07/18 11:49 Dose: 40 mg Fluticasone Propionate (Flonase) 1 actuation NS HS [facility] Last Admin: 11/07/18 23:23 Dose: Not Given Furosemide (Lasix) 40 mg IVP DAILY [facility] Last Admin: 11/07/18 11:50 Dose: Not Given Furosemide (Lasix) 40 mg PO DAILY [facility] Cefepime HCl (Maxipime 1gm) 1 gm in 100 mls @ 100 mls/hr IVPB Q12 [facility]; Protocol Last Admin: 11/07/18 23:08 Dose: 100 mls/hr Levalbuterol HCl (Xopenex) 1.25 mg IH [id number] PRN PRN Reason: Shortness of Breath Methylprednisolone (Solu-Medrol) 40 mg IVP Q8H [facility] Last Admin: 11/08/18 06:58 Dose: 40 mg Montelukast Sodium (Singulair) 10 mg PO HS [facility] Last Admin: 11/07/18 23:08 Dose: 10 mg Pantoprazole Sodium (Protonix Ec Tab) 40 mg PO ACB [facility] Last Admin: 11/08/18 06:58 Dose: 40 mg Verapamil HCl (Verapamil Inj) 2.5 mg IVP Q6 PRN PRN Reason: Heart rate - Labs Labs: 11/08/18 06:36 11/08/18 06:36 PT 12.7 SECONDS (9.4-12.5) H 11/05/18 17:25 INR 1.14 11/05/18 17:25 APTT 31.4 Seconds (26.9-38.3) 11/05/18 17:25 - Constitutional Appears: Non-toxic, No Acute Distress - Head Exam Head Exam: NORMAL INSPECTION, NORMOCEPHALIC - Eye Exam Eye Exam: Normal appearance Pupil Exam: NORMAL ACCOMODATION - ENT Exam ENT Exam: Mucous Membranes Moist, Normal Exam - Neck Exam Neck Exam: Full ROM, Normal Inspection - Respiratory Exam Respiratory Exam: Decreased Breath Sounds, Clear to Ausculation Bilateral, NORMAL BREATHING PATTERN - Cardiovascular Exam Cardiovascular Exam: REGULAR RHYTHM, +S1, +S2 Additional comments: Telemetry NSR 70's - GI/Abdominal Exam GI & Abdominal Exam: Soft, Normal Bowel Sounds - Extremities Exam Extremities Exam: Full ROM, Normal Capillary Refill - Neurological Exam Neurological Exam: Alert, Awake, Oriented x3 - Psychiatric Exam Psychiatric exam: Normal Affect, Normal Mood - Skin Skin Exam: Dry, Normal Color, Warm Assessment and Plan - Assessment and Plan (Free Text) Assessment: A 73 year old female who came in to the ER due to shortness of breath. History of extensive smoking, (60 pack years) chronic obstructive pulmonary disease, on home oxygen, history of lung cancer with chemotherapy and radiation, history of colon cancer post colectomy in 2003. CT of chest done and showed Pulmonary fibrosis most severe in the right lower and upper lobe. Multiple bullae are seen. There is a 15 mm nodule in the right apex within the fibrosis. A 6 mm nodule on the left lung apex. Small right pleural effusion. History of endovascular graft. Ruled out congestive heart failure. Admitted for exacer bation of COPD and pneumonia.Echo done to evaluate LV function pending results. ID on consult. On IV antibiotics. Pulmonary and Oncology on consult. Will discontinue telemetry. Plan: No distress, denies shortness of breath, feels better Heart rate stable Blood pressure stable Will follow up Echo results Cardiac status stable Will discontinue telemetry On ASA 81 mg daily,Lasix 40 mg daily,Solumedrol 40 mg every 8 hours Continue current treatment Continue current medications ID on consult. Continue IV antibiotics Pulmonary and Oncology on consult Nutritional support Will follow up Plan and treatment discussed with Dr. Griffin
[2018-11-08] MEDS: Budesonide 0.5 mg/2 ml Inhal Susp UD IH SCH ×2 (08:11→20:49)
[2018-11-08] MEDS: Arformoterol 15 mcg/2 ml Inh Sol IH SCH ×2 (08:11→20:49)
--- NOTE | 2018-11-08 09:07 | PN ---
DATE: 11/06/2018 SUBJECTIVE: The patient is an 81-year-old female. The patient is stable. Her breathing is better. She still has some respiratory distress but she feels better. The patient is seen by mortician investigator and medication nurse. PHYSICAL EXAMINATION: VITAL SIGNS: On 11/06/2018, she is afebrile, temperature 97.6, heart rate 91, blood pressure 127/77, respirations 20. HEAD AND NECK: Normal. No JVD. No thyromegaly. CHEST: Diminished breath sounds. Very few rales in the right base. CARDIAC: First sound and second sound are normal, regular. ABDOMEN: Soft, nontender. EXTREMITIES: Small ankle edema. NEUROLOGICAL: Normal. LABORATORY DATA: Laboratory study noted for proBNP of 4910, sodium 141, potassium 4.5, chloride 102, bicarbonate 28, BUN 10, creatinine 0.8. Liver function tests are normal. Troponin is negative. IMPRESSION AND PLAN: 1. Acute congestive heart failure. The patient will need an echocardiogram. Dr. Griffin, cardiology consult, is seeing patient. We will get echocardiography. Continue intravenous Lasix. Continue current medications. 2. Acute chronic obstructive pulmonary disease and emphysema exacerbation. Continue inhaled bronchodilator, bilevel positive airway pressure machine. Pulmonary consult is seeing patient. Continue gastrointestinal and deep venous thrombosis prophylaxis. 3. The patient also has aortic aneurysm, stable at this time. We will follow up with the medication nurse about it, and we will see the echocardiography report. 4. Chronic back pain, chronic joint pain. Percocet is not helping. She asked to get her codeine. I said "okay, you can get your codeine tomorrow." 5. Community-acquired pneumonia. The patient has allergy to penicillin. She received Rocephin without any allergic reactions; however, I will get an Infectious Disease consult. The patient also said that Zithromax makes her feel sick, so we stopped Zithromax. Infectious Disease consult has seen the patient. They put the patient doxycycline, Merrem. Continue current therapy. Follow up clinically. Continue steroids, Solu-Medrol 40 mg intravenous every 8 hours, Pulmicort, Xopenex, baby aspirin, Protonix. Steven Saleeb, MD
--- NOTE | 2018-11-08 09:31 | CP.PCM.PN ---
<FloraBaldemar - Last Filed: 11/08/18 09:28> Subjective - Date & Time of Evaluation Date of Evaluation: 11/07/18 Time of Evaluation: 09:28 - Subjective Subjective: Heme/onc progress note - Flora PGY - 2 Patient seen and examined at bedside with no acute overnight events. Patient does complain of headache right now; generally takes Tyl with Codeine IV for her generalized pain. She does feel pain in her back and R shoulder as well. Objective - Vital Signs/Intake and Output Vital Signs (last 24 hours): Temp Pulse Resp BP Pulse Ox 97.8 F 81 18 139/76 95 11/08/18 06:00 11/08/18 06:00 11/08/18 06:00 11/08/18 06:00 11/08/18 06:00 Intake and Output: 11/08/18 11/08/18 06:59 18:59 Intake Total 360 Balance 360 - Medications Medications: Current Medications Acetaminophen (Tylenol 325mg Tab) 650 mg PO Q6H PRN PRN Reason: Pain, Mild (1-3) Last Admin: 11/07/18 23:11 Dose: 650 mg Acetaminophen (Tylenol 325mg Tab) 650 mg PO Q6H PRN PRN Reason: Pain, severe (8-10) WITH CODEI Arformoterol Tartrate (Brovana) 15 mcg IH [id number] [facility] Last Admin: 11/08/18 08:11 Dose: 15 mcg Aspirin (Ecotrin) 81 mg PO DAILY [facility] Last Admin: 11/07/18 11:49 Dose: 81 mg Budesonide (Pulmicort Respules) 0.5 mg IH BIDRESP [facility] Last Admin: 11/08/18 08:11 Dose: 0.5 mg Codeine Sulfate (Codeine) 30 mg PO Q6H PRN PRN Reason: Pain, severe (8-10)WITH TYLENO Last Admin: 11/07/18 17:19 Dose: 30 mg Doxycycline Hyclate (Doryx) 100 mg PO Q12 [facility]; Protocol Stop: 11/15/18 22:01 Last Admin: 11/07/18 23:07 Dose: 100 mg Enoxaparin Sodium (Lovenox) 40 mg SC DAILY [facility]; Protocol Last Admin: 11/07/18 11:49 Dose: 40 mg Fluticasone Propionate (Flonase) 1 actuation NS HS [facility] Last Admin: 11/07/18 23:23 Dose: Not Given Furosemide (Lasix) 40 mg IVP DAILY [facility] Last Admin: 11/07/18 11:50 Dose: Not Given Furosemide (Lasix) 40 mg PO DAILY [facility] Cefepime HCl (Maxipime 1gm) 1 gm in 100 mls @ 100 mls/hr IVPB Q12 [facility]; Protocol Last Admin: 11/07/18 23:08 Dose: 100 mls/hr Levalbuterol HCl (Xopenex) 1.25 mg IH [id number] PRN PRN Reason: Shortness of Breath Methylprednisolone (Solu-Medrol) 40 mg IVP Q8H [facility] Last Admin: 11/08/18 06:58 Dose: 40 mg Montelukast Sodium (Singulair) 10 mg PO HS [facility] Last Admin: 11/07/18 23:08 Dose: 10 mg Pantoprazole Sodium (Protonix Ec Tab) 40 mg PO ACB [facility] Last Admin: 11/08/18 06:58 Dose: 40 mg Verapamil HCl (Verapamil Inj) 2.5 mg IVP Q6 PRN PRN Reason: Heart rate - Labs Labs: 11/08/18 06:36 11/08/18 06:36 PT 12.7 SECONDS (9.4-12.5) H 11/05/18 17:25 INR 1.14 11/05/18 17:25 APTT 31.4 Seconds (26.9-38.3) 11/05/18 17:25 - Constitutional Appears: Non-toxic, Chronically Ill - Head Exam Head Exam: ATRAUMATIC, NORMAL INSPECTION, NORMOCEPHALIC - Eye Exam Eye Exam: EOMI, Normal appearance, PERRL Pupil Exam: NORMAL ACCOMODATION, PERRL - ENT Exam ENT Exam: Mucous Membranes Moist, Normal Exam - Neck Exam Neck Exam: Full ROM, Normal Inspection. absent: Lymphadenopathy - Respiratory Exam Respiratory Exam: Clear to Ausculation Bilateral, NORMAL BREATHING PATTERN - Cardiovascular Exam Cardiovascular Exam: REGULAR RHYTHM, +S1, +S2. absent: Murmur - GI/Abdominal Exam GI & Abdominal Exam: Soft, Normal Bowel Sounds. absent: Tenderness - Extremities Exam Extremities Exam: Full ROM, Normal Capillary Refill, Normal Inspection. absent: Joint Swelling, Pedal Edema - Back Exam Back Exam: NORMAL INSPECTION - Neurological Exam Neurological Exam: Alert, Awake, CN II-XII Intact, Normal Gait, Oriented x3 - Psychiatric Exam Psychiatric exam: Normal Affect, Normal Mood - Skin Skin Exam: Dry, Intact, Normal Color, Warm Assessment and Plan - Assessment and Plan (Free Text) Assessment: 73 F with pertinent medical history of past malignancy presents with shortness of breath; Heme/onc consulted for evaluation for myeloma. Of note, CT Scan was reviewed which showed R sided effusion; patient with past history of malignancy is concerning. Patient did not have any bony lesions on CT scan and does not have hypercalcemia or renal failure. Pleural effusion does not need to be tapped right now, will continue to monitor. Plan - Studies pending: - Alpha globin - Immunofixation - Free Valley/lambda - Valley light chain - Valley/lambda free with ratio - SPEP - Added Tylenol with Codeine IV; - Obtain bone scan and Plain XR of dorsal thoracic spine to get to source of pain Thank you for this consult; we will follow with you <Zoey Pabon P - Last Filed: 11/08/18 21:14> Objective - Vital Signs/Intake and Output Vital Signs (last 24 hours): Temp Pulse Resp BP Pulse Ox 97.7 F 99 H 20 114/75 95 11/08/18 17:26 11/08/18 18:00 11/08/18 17:26 11/08/18 18:00 11/08/18 06:00 Intake and Output: 11/08/18 11/09/18 18:59 06:59 Intake Total 100 Balance 100 - Medications Medications: Current Medications Acetaminophen (Tylenol 325mg Tab) 650 mg PO Q6H PRN PRN Reason: Pain, severe (8-10) WITH CODEI Arformoterol Tartrate (Brovana) 15 mcg IH [id number] [facility] Last Admin: 11/08/18 20:49 Dose: 15 mcg Aspirin (Ecotrin) 81 mg PO DAILY [facility] Last Admin: 11/08/18 11:03 Dose: 81 mg Budesonide (Pulmicort Respules) 0.5 mg IH BIDRESP [facility] Last Admin: 11/08/18 20:49 Dose: 0.5 mg Carvedilol (Coreg) 3.125 mg PO BID [facility] Last Admin: 11/08/18 18:00 Dose: 3.125 mg Doxycycline Hyclate (Doryx) 100 mg PO Q12 [facility]; Protocol Stop: 11/15/18 22:01 Last Admin: 11/08/18 11:03 Dose: 100 mg Enoxaparin Sodium (Lovenox) 40 mg SC DAILY [facility]; Protocol Last Admin: 11/08/18 11:04 Dose: 40 mg Fluticasone Propionate (Flonase) 1 actuation NS HS [facility] Last Admin: 11/07/18 23:23 Dose: Not Given Furosemide (Lasix) 40 mg IVP DAILY [facility] Last Admin: 11/08/18 11:04 Dose: Not Given Furosemide (Lasix) 40 mg PO DAILY [facility] Last Admin: 11/08/18 11:03 Dose: 40 mg Home Med (Home Med) 1 unit PO Q6 PRN PRN Reason: Pain, Mild (1-3) Last Admin: 11/08/18 16:38 Dose: 1 unit Cefepime HCl (Maxipime 1gm) 1 gm in 100 mls @ 100 mls/hr IVPB Q12 [facility]; Protocol Last Admin: 11/08/18 11:05 Dose: 100 mls/hr Levalbuterol HCl (Xopenex) 1.25 mg IH [id number] PRN PRN Reason: Shortness of Breath Lisinopril (Zestril) 2.5 mg PO DAILY [facility] Methylprednisolone (Solu-Medrol) 40 mg IVP Q8H [facility] Last Admin: 11/08/18 16:06 Dose: 40 mg Montelukast Sodium (Singulair) 10 mg PO HS [facility] Last Admin: 11/07/18 23:08 Dose: 10 mg Pantoprazole Sodium (Protonix Ec Tab) 40 mg PO ACB [facility] Last Admin: 11/08/18 06:58 Dose: 40 mg Verapamil HCl (Verapamil Inj) 2.5 mg IVP Q6 PRN PRN Reason: Heart rate - Labs Labs: 11/08/18 06:36 11/08/18 06:36 PT 12.7 SECONDS (9.4-12.5) H 11/05/18 17:25 INR 1.14 11/05/18 17:25 APTT 31.4 Seconds (26.9-38.3) 11/05/18 17:25 Attending/Attestation - Attestation I have personally seen and examined this patient.: Yes I have fully participated in the care of the patient.: Yes I have reviewed all pertinent clinical information, including history, physical exam and plan: Yes
--- NOTE | 2018-11-08 09:52 | CARD ---
APPROVED REPORT Date of service: 11/06/2018 EXAM: Two-dimensional and M-mode echocardiogram with Doppler and color Doppler. INDICATION MR/TR/LVFX/SOB 2D DIMENSIONS Left Atrium (2D)2.3 (1.6-4.0cm)IVSd0.9 (0.7-1.1cm) LVDd3.9 (3.9-5.9cm)PWd1.0 (0.7-1.1cm) LVDs3.2 (2.5-4.0cm)FS (%) 18.9 % LVEF (%)40.0 (>50%) M-Mode DIMENSIONS Aortic Root3.50 (2.2-3.7cm)Aortic Cusp Exc.1.50 (1.5-2.0cm) Aortic Valve AoV Peak Isdkehwu239.0cm/Aris Peak GR.5mmHg Mitral Valve E/A ratio0.0 TDI E/Lateral E'0.0E/Medial E'0.0 Pulmonary Valve PV Peak Dblaiecr82.1cm/sPV Peak Grad.2mmHg Tricuspid Valve TR Peak [id number] [id number] Peak Gr.51mmHg [id number] LEFT VENTRICLE The left ventricle is normal size.LV Systolic Function shows Mild Decrease. LV Ej.Fr: 40%. RIGHT VENTRICLE The right ventricle is normal size. The right ventricular systolic function is normal. ATRIA The left atrium size is normal. The right atrium size is normal. AORTIC VALVE The aortic valve is normal in structure. Thickened AV Leaflets. MITRAL VALVE The mitral valve is normal in structure. Mitral regurgitation is trace. TRICUSPID VALVE The tricuspid valve is normal in structure. There is mild to moderate tricuspid regurgitation.RVSP 61mm Hg. Suggestive of Moderate to Severe Pulmonary Hypertension. <Conclusion> The left ventricle is normal size.LV Systolic Function shows Mild Decrease. LV Ej.Fr: 40%. The right ventricle is normal size. The right ventricular systolic function is normal.RV Systolic Function Shows Mild Decrease. The aortic valve is normal in structure. Thickened AV Leaflets. The mitral valve is normal in structure. Mitral regurgitation is trace. The tricuspid valve is normal in structure. There is mild to moderate tricuspid regurgitation.RVSP 61mm Hg. Suggestive of Moderate to Severe Pulmonary Hypertension.
[2018-11-08] MEDS: Enoxaparin 40 mg Syringe SC SCH (11:04)
[2018-11-08] MEDS: Cefepime 1gm in NS 100ml 1 GM/100 ML BAG IVPB SCH ×2 (11:05→22:02)
--- NOTE | 2018-11-08 12:21 | PN ---
DATE: 11/08/2018 REFERRING PHYSICIAN: Steven Weeks MD SUBJECTIVE: The patient is seen sitting in armchair in room with oxygen off. Oxygen saturation checked on room air noted 80% to 83% on room air. Oxygen reapplied. The patient reports that she is however feeling better. Shortness of breath and cough are better. No headache, rhinitis, chest pain, abdominal pain, nausea, vomiting, diarrhea, leg pain, leg swelling reported. Did not wear BiPAP machine last night. OBJECTIVE: GENERAL: No acute distress. VITAL SIGNS: Blood pressure 139/76, pulse 81, temperature 97.8, oxygen saturation 95% on nasal cannula. HEENT: Moist mucous membranes. Mallampati score of 4. Crowded airway. NECK: Supple. No JVD. LUNGS: Decreased breath sounds bilaterally, few scattered rhonchi. CARDIOVASCULAR: S1, S2. ABDOMEN: Soft, nontender. No distention. No organomegaly. EXTREMITIES: No bilateral lower extremity edema. NEUROLOGIC: Awake, alert, verbal. Following commands. MEDICATIONS: Reviewed. Tylenol 650 every 6 hours p.r.n. mild pain, Tylenol 650 every 6 hours p.r.n. severe pain, Brovana 15 mcg inhalation every 12 hours, aspirin 81 mg daily, Pulmicort 0.5 mg inhalation twice a day, cefepime 1 g every 12 hours, codeine 30 mg every 6 hours p.r.n., doxycycline 100 mg every 12 hours, Lovenox 40 mg subcu daily, Flonase nasal spray at bedtime, Lasix 40 mg daily, Xopenex 1.25 mg inhalation every 6 hours p.r.n., Solu-Medrol 40 mg every 8 hours, Singulair 10 mg at bedtime, Protonix 40 mg before meals, verapamil 2.5 mg IV push every 6 hours p.r.n. LABORATORY DATA: Reviewed. WBC 7.2, RBC 4.04, hemoglobin 10.4, hematocrit 33.3, platelets 353. Sodium 138, potassium 4.1, chloride 95, carbon dioxide 33, anion gap 15, BUN 30, creatinine 0.7, GFR greater than 60, random glucose 123, calcium 9.3, phosphorus 4.2, magnesium 2, total bilirubin 0.3. AST 38, ALT 12, alkaline phosphatase 80, total protein 8.4, albumin 3.8, globulin 4.6, albumin-globulin ratio 0.8. Thoracic spine x-ray report pending. Bone density survey report pending. Echocardiogram shows ejection fraction 40%, RVSP 61, [id number] pulmonary hypertension, trace mitral regurgitation. IMPRESSION AND PLAN: Community-acquired pneumonia, history of lung cancer, status post resection, chronic obstructive pulmonary disease, the patient uses oxygen at home; anemia, congestive heart failure, cardiomyopathy, pulmonary hypertension. The patient has both cardiac and pulmonary disease, some bronchiectasis. The patient with history of lung tumor. The patient received chemotherapy and radiation, which may have possibly caused some bronchiectasis. The patient will need followup CAT scan of the chest to assure stability of lung nodules. Continue Hematology-Oncology followup, sleep apnea precautions, head of bed elevated at 45 degrees. We do suspect sleep apnea in this patient. Recommend the patient have sleep study as outpatient. Recommend the patient have pulmonary function test as outpatient. We will continue current steroid dosing at this time. Fall precautions. The patient was seen and examined with Dr. Martinez. Discussed assessment and plan as described above. The patient was seen and examined by Coty Mullen, nurse practitioner. Discussed assessment and plan as described above. Thank you for this consult. We will follow with you. Coty Mullen APN Rosa Martinez MD
--- NOTE | 2018-11-08 12:33 | RAD ---
Date of service: 11/07/2018 PROCEDURE: Bone survey complete HISTORY: pain in right upper back COMPARISON: TECHNIQUE: A complete bone survey was performed. Eleven images obtained FINDINGS: The study is unremarkable showing no lytic or sclerotic metastatic lesions. There is COPD and pulmonary fibrosis in the right lower lobe. There is aortic calcification. An aortic stent graft is seen in place. IMPRESSION: Negative study
--- NOTE | 2018-11-08 12:55 | RAD ---
Date of service: 11/07/2018 HISTORY: pain COMPARISON: No prior. TECHNIQUE: 2 views obtained. FINDINGS: BONES: Alignment maintained. No fracture. Severe osteoporosis DISC SPACES: Normal. SOFT TISSUES: Normal. OTHER FINDINGS: None. IMPRESSION: No acute findings
--- NOTE | 2018-11-08 13:18 | CP.PCM.CON ---
<LeticiamaxineCon - Last Filed: 11/08/18 13:12> History of Present Illness - History of Present Illness History of Present Illness: PGY-4 GI Fellow Consult Note 73 yo F with COPD (2 L at baseline), h/o lung tumor (s/p resections?, XRT, chemo), Colon CA (2004 s/p resection) presenting on 11/05/18 with worsening shortness of breath and LE edema, ultimately treated for COPD+CHF exacerbation. GI later consulted for anemia. Pt states that she has not been aware of anemia history. Of note, she is from [place] where she get the majority of her care; she was visiting daughter who lives in [place]. Pt reports that BMs are normal and that she moves her bowels daily or every other day. She is not sure if she has had an EGD before, but states that she had a colonoscopy many years ago when the cancer was found. She denied any F/C, CP, SOB, abd pain, melena, weight loss, dysphagia nor he matochezia. 12 point ROS negative other than stated above MH: As above SH: Colon cancer status post resection, and pleural surgery for tumor Meds: Reviewed in [facility] SocH: Former smoker of 60 pack years, denies any drinking or drug use FH: Denies GI problems Allergies: No known allergies Past Patient History - Infectious Disease Hx of Infectious Diseases: None - Past Social History Smoking Status: x - CARDIAC Hx Cardiac Disorders: Yes - PULMONARY Hx Respiratory Disorders: Yes Hx Chronic Obstructive Pulmonary Disease (COPD): Yes - NEUROLOGICAL Hx Neurological Disorder: No - HEENT Hx HEENT Problems: No - RENAL Hx Chronic Kidney Disease: No - ENDOCRINE/METABOLIC Hx Endocrine Disorders: No - HEMATOLOGICAL/ONCOLOGICAL Hx Blood Disorders: No - INTEGUMENTARY Hx Dermatological Problems: No - MUSCULOSKELETAL/RHEUMATOLOGICAL Hx Musculoskeletal Disorders: No Hx Falls: No - GASTROINTESTINAL Hx Gastrointestinal Disorders: No - GENITOURINARY/GYNECOLOGICAL Hx Genitourinary Disorders: No - PSYCHIATRIC Hx Psychophysiologic Disorder: No Hx Substance Use: No - SURGICAL HISTORY Hx Surgeries: No Meds Allergies/Adverse Reactions: Allergies Allergy/AdvReac Type Severity Reaction Status Date / Time No Known Allergies Allergy Unverified 11/05/18 17:00 - Medications Medications: Current Medications Acetaminophen (Tylenol 325mg Tab) 650 mg PO Q6H PRN PRN Reason: Pain, Mild (1-3) Last Admin: 11/08/18 11:33 Dose: 650 mg Acetaminophen (Tylenol 325mg Tab) 650 mg PO Q6H PRN PRN Reason: Pain, severe (8-10) WITH CODEI Arformoterol Tartrate (Brovana) 15 mcg IH [id number] [facility] Last Admin: 11/08/18 08:11 Dose: 15 mcg Aspirin (Ecotrin) 81 mg PO DAILY [facility] Last Admin: 11/08/18 11:03 Dose: 81 mg Budesonide (Pulmicort Respules) 0.5 mg IH BIDRESP [facility] Last Admin: 11/08/18 08:11 Dose: 0.5 mg Codeine Sulfate (Codeine) 30 mg PO Q6H PRN PRN Reason: Pain, severe (8-10)WITH TYLENO Last Admin: 11/08/18 11:33 Dose: 30 mg Doxycycline Hyclate (Doryx) 100 mg PO Q12 [facility]; Protocol Stop: 11/15/18 22:01 Last Admin: 11/08/18 11:03 Dose: 100 mg Enoxaparin Sodium (Lovenox) 40 mg SC DAILY [facility]; Protocol Last Admin: 11/08/18 11:04 Dose: 40 mg Fluticasone Propionate (Flonase) 1 actuation NS HS [facility] Last Admin: 11/07/18 23:23 Dose: Not Given Furosemide (Lasix) 40 mg IVP DAILY [facility] Last Admin: 11/08/18 11:04 Dose: Not Given Furosemide (Lasix) 40 mg PO DAILY [facility] Last Admin: 11/08/18 11:03 Dose: 40 mg Cefepime HCl (Maxipime 1gm) 1 gm in 100 mls @ 100 mls/hr IVPB Q12 [facility]; Protocol Last Admin: 11/08/18 11:05 Dose: 100 mls/hr Levalbuterol HCl (Xopenex) 1.25 mg IH [id number] PRN PRN Reason: Shortness of Breath Methylprednisolone (Solu-Medrol) 40 mg IVP Q8H [facility] Last Admin: 11/08/18 06:58 Dose: 40 mg Montelukast Sodium (Singulair) 10 mg PO HS [facility] Last Admin: 11/07/18 23:08 Dose: 10 mg Pantoprazole Sodium (Protonix Ec Tab) 40 mg PO ACB [facility] Last Admin: 11/08/18 06:58 Dose: 40 mg Verapamil HCl (Verapamil Inj) 2.5 mg IVP Q6 PRN PRN Reason: Heart rate Physical Exam - Constitutional Appears: Well, No Acute Distress, Chronically Ill - Head Exam Head Exam: ATRAUMATIC, NORMAL INSPECTION - Eye Exam Eye Exam: EOMI. absent: Scleral icterus - ENT Exam ENT Exam: Mucous Membranes Moist. absent: Mucous Membranes Dry - Respiratory Exam Respiratory Exam: NORMAL BREATHING PATTERN. absent: Accessory Muscle Use - Cardiovascular Exam Cardiovascular Exam: REGULAR RHYTHM, RRR - GI/Abdominal Exam GI & Abdominal Exam: Normal Bowel Sounds, Soft. absent: Bruit, Diminished Bowel Sounds, Distended, Firm, Guarding, Hernia, Organomegaly, Pulsatile Mass, Rebound, Rigid, Tenderness - Neurological Exam Neurological exam: Alert, CN II-XII Intact - Psychiatric Exam Psychiatric exam: Normal Affect, Normal Mood - Skin Skin Exam: Dry, Normal Color Results - Vital Signs Recent Vital Signs: Last Vital Signs Temp 98.4 F 11/08/18 12:00 Pulse 89 11/08/18 12:00 Resp 18 11/08/18 12:00 BP 140/95 H 11/08/18 12:00 Pulse Ox 95 11/08/18 06:00 - Labs Result Diagrams: 11/08/18 06:36 11/08/18 06:36 Labs: Laboratory Results - last 24 hr 11/06/18 11/08/18 11/08/18 15:00 06:36 06:36 WBC 7.2 RBC 4.04 Hgb 10.4 L Hct 33.3 L MCV 82.4 MCH 25.7 MCHC 31.2 RDW 17.4 H Plt Count 353 MPV 9.8 Neut % (Auto) 84.5 H Lymph % (Auto) 10.2 L [place] % (Auto) 5.3 Eos % (Auto) 0.0 L Baso % (Auto) 0.0 Lymph # (Auto) 0.7 L [place] # (Auto) 0.4 Eos # (Auto) 0.0 Baso # (Auto) 0.00 Absolute Neuts (auto) 6.10 a-Globin Gene Sequence Cancelled Sodium 138 Potassium 4.1 Chloride 95 L Carbon Dioxide 33 Anion Gap 15 BUN 30 H Creatinine 0.7 Est GFR ( Amer) > 60 Est GFR (Non-Af Amer) > 60 Random Glucose 123 H Calcium 9.3 Phosphorus 4.2 Magnesium 2.0 Total Bilirubin 0.3 AST 38 H D ALT 12 Alkaline Phosphatase 80 Total Protein 8.4 H Albumin 3.8 Globulin 4.6 Albumin/Globulin Ratio 0.8 L Assessment & Plan - Assessment and Plan (Free Text) Assessment: 73 yo F with COPD (2 L at baseline), h/o lung tumor (s/p resections?, XRT, chemo), Colon CA (2004 s/p resection) presenting on 11/05/18 with worsening shortness of breath and LE edema, ultimately treated for COPD+CHF exacerbation. GI later consulted for anemia. # Normocytic Anemia: Hgb 9.9. Unclear baseline. Vitals stable and no signs of active GI bleed at this time. # H/o colon CA s/p resection Plan: - Monitor Hgb - No plans for EGD at this time - Anemia w/u per Hematology - Will cont to follow Pt seen and examined with Dr. Mann; please see attestation for further details/changes. <Susan Mann V - Last Filed: 11/08/18 19:59> Meds - Medications Medications: Current Medications Acetaminophen (Tylenol 325mg Tab) 650 mg PO Q6H PRN PRN Reason: Pain, severe (8-10) WITH CODEI Arformoterol Tartrate (Brovana) 15 mcg IH [id number] [facility] Last Admin: 11/08/18 08:11 Dose: 15 mcg Aspirin (Ecotrin) 81 mg PO DAILY [facility] Last Admin: 11/08/18 11:03 Dose: 81 mg Budesonide (Pulmicort Respules) 0.5 mg IH BIDRESP [facility] Last Admin: 11/08/18 08:11 Dose: 0.5 mg Carvedilol (Coreg) 3.125 mg PO BID [facility] Last Admin: 11/08/18 18:00 Dose: 3.125 mg Doxycycline Hyclate (Doryx) 100 mg PO Q12 [facility]; Protocol Stop: 11/15/18 22:01 Last Admin: 11/08/18 11:03 Dose: 100 mg Enoxaparin Sodium (Lovenox) 40 mg SC DAILY [facility]; Protocol Last Admin: 11/08/18 11:04 Dose: 40 mg Fluticasone Propionate (Flonase) 1 actuation NS HS [facility] Last Admin: 11/07/18 23:23 Dose: Not Given Furosemide (Lasix) 40 mg IVP DAILY [facility] Last Admin: 11/08/18 11:04 Dose: Not Given Furosemide (Lasix) 40 mg PO DAILY [facility] Last Admin: 11/08/18 11:03 Dose: 40 mg Home Med (Home Med) 1 unit PO Q6 PRN PRN Reason: Pain, Mild (1-3) Last Admin: 11/08/18 16:38 Dose: 1 unit Cefepime HCl (Maxipime 1gm) 1 gm in 100 mls @ 100 mls/hr IVPB Q12 [facility]; Protocol Last Admin: 11/08/18 11:05 Dose: 100 mls/hr Levalbuterol HCl (Xopenex) 1.25 mg IH [id number] PRN PRN Reason: Shortness of Breath Lisinopril (Zestril) 2.5 mg PO DAILY [facility] Methylprednisolone (Solu-Medrol) 40 mg IVP Q8H [facility] Last Admin: 11/08/18 16:06 Dose: 40 mg Montelukast Sodium (Singulair) 10 mg PO HS [facility] Last Admin: 11/07/18 23:08 Dose: 10 mg Pantoprazole Sodium (Protonix Ec Tab) 40 mg PO ACB [facility] Last Admin: 11/08/18 06:58 Dose: 40 mg Verapamil HCl (Verapamil Inj) 2.5 mg IVP Q6 PRN PRN Reason: Heart rate Results - Vital Signs Recent Vital Signs: Last Vital Signs Temp 97.7 F 11/08/18 17:26 Pulse 99 H 11/08/18 18:00 Resp 20 11/08/18 17:26 BP 114/75 11/08/18 18:00 Pulse Ox 95 11/08/18 06:00 - Labs Result Diagrams: 11/08/18 06:36 11/08/18 06:36 Labs: Laboratory Results - last 24 hr 11/06/18 11/08/18 11/08/18 15:00 06:36 06:36 WBC 7.2 RBC 4.04 Hgb 10.4 L Hct 33.3 L MCV 82.4 MCH 25.7 MCHC 31.2 RDW 17.4 H Plt Count 353 MPV 9.8 Neut % (Auto) 84.5 H Lymph % (Auto) 10.2 L [place] % (Auto) 5.3 Eos % (Auto) 0.0 L Baso % (Auto) 0.0 Lymph # (Auto) 0.7 L [place] # (Auto) 0.4 Eos # (Auto) 0.0 Baso # (Auto) 0.00 Absolute Neuts (auto) 6.10 a-Globin Gene Sequence Cancelled Sodium 138 Potassium 4.1 Chloride 95 L Carbon Dioxide 33 Anion Gap 15 BUN 30 H Creatinine 0.7 Est GFR ( Amer) > 60 Est GFR (Non-Af Amer) > 60 Random Glucose 123 H Calcium 9.3 Phosphorus 4.2 Magnesium 2.0 Total Bilirubin 0.3 AST 38 H D ALT 12 Alkaline Phosphatase 80 Total Protein 8.4 H Albumin 3.8 Globulin 4.6 Albumin/Globulin Ratio 0.8 L Procalcitonin 11/08/18 12:30 WBC RBC Hgb Hct MCV MCH MCHC RDW Plt Count MPV Neut % (Auto) Lymph % (Auto) [place] % (Auto) Eos % (Auto) Baso % (Auto) Lymph # (Auto) [place] # (Auto) Eos # (Auto) Baso # (Auto) Absolute Neuts (auto) a-Globin Gene Sequence Sodium Potassium Chloride Carbon Dioxide Anion Gap BUN Creatinine Est GFR ( Amer) Est GFR (Non-Af Amer) Random Glucose Calcium Phosphorus Magnesium Total Bilirubin AST ALT Alkaline Phosphatase Total Protein Albumin Globulin Albumin/Globulin Ratio Procalcitonin < 0.05 L Attending/Attestation - Attestation I have personally seen and examined this patient.: Yes I have fully participated in the care of the patient.: Yes I have reviewed all pertinent clinical information: Yes Notes (Text): This is an addendum to the GI consultation report dictated by the GI fellow. Patient was seen and evaluated along with the fellow earlier. This patient has significant cardiopulmonary issues. History of colon cancer. Patient was hospitalized multiple times in [facility]. History of colon cancer. As per patient endoscopy evaluation was deferred in view of her lung condition. Patient has anemia. Normocytic anemia. Would request 1. Iron studies B12 and folate 2. Follow-up CA 199 it is significantly elevated at 150. We do not have the baseline value if it is increasing trend would benefit from MRI of the abdomen attention pancreas with MRCP. The CT scan done was without pancreatic protocol. 3. We will discuss with the family further before considering any GI work-up. In view of this multiple comorbidities 11/08/18 19:56
[2018-11-08] MEDS: Fluticasone Nasal 50 mcg/Spray NS SCH ×2 (22:09→22:26)
--- NOTE | 2018-11-09 07:25 | CP.PCM.PN ---
Subjective - Date & Time of Evaluation Date of Evaluation: 11/09/18 Time of Evaluation: 06:35 - Subjective Subjective: Awake, alert, no distress, wanted to go home Reason for consultation and follow up:Cardiac evaluation of elevated BNP, admitted for shortness of breath, ruled out congestive heart failure Seen and examined by me and Dr. Griffin Objective - Vital Signs/Intake and Output Vital Signs (last 24 hours): Temp Pulse Resp BP Pulse Ox 98.4 F 99 H 20 133/80 100 11/08/18 22:20 11/08/18 18:00 11/08/18 22:20 11/08/18 22:20 11/08/18 22:20 Intake and Output: 11/09/18 11/09/18 06:59 18:59 Intake Total 520 Balance 520 - Medications Medications: Current Medications Acetaminophen (Tylenol 325mg Tab) 650 mg PO Q6H PRN PRN Reason: Pain, severe (8-10) WITH CODEI Arformoterol Tartrate (Brovana) 15 mcg IH [id number] [facility] Last Admin: 11/08/18 20:49 Dose: 15 mcg Aspirin (Ecotrin) 81 mg PO DAILY [facility] Last Admin: 11/08/18 11:03 Dose: 81 mg Budesonide (Pulmicort Respules) 0.5 mg IH BIDRESP [facility] Last Admin: 11/08/18 20:49 Dose: 0.5 mg Carvedilol (Coreg) 3.125 mg PO BID [facility] Last Admin: 11/08/18 18:00 Dose: 3.125 mg Doxycycline Hyclate (Doryx) 100 mg PO Q12 [facility]; Protocol Stop: 11/15/18 22:01 Last Admin: 11/08/18 22:01 Dose: 100 mg Enoxaparin Sodium (Lovenox) 40 mg SC DAILY [facility]; Protocol Last Admin: 11/08/18 11:04 Dose: 40 mg Fluticasone Propionate (Flonase) 1 actuation NS HS [facility] Last Admin: 11/08/18 22:26 Dose: Not Given Furosemide (Lasix) 40 mg IVP DAILY [facility] Last Admin: 11/08/18 11:04 Dose: Not Given Furosemide (Lasix) 40 mg PO DAILY [facility] Last Admin: 11/08/18 11:03 Dose: 40 mg Home Med (Home Med) 1 unit PO Q6 PRN PRN Reason: Pain, Mild (1-3) Last Admin: 11/09/18 05:53 Dose: 1 unit Cefepime HCl (Maxipime 1gm) 1 gm in 100 mls @ 100 mls/hr IVPB Q12 [facility]; Protocol Last Admin: 11/08/18 22:02 Dose: 100 mls/hr Levalbuterol HCl (Xopenex) 1.25 mg IH [id number] PRN PRN Reason: Shortness of Breath Lisinopril (Zestril) 2.5 mg PO DAILY [facility] Methylprednisolone (Solu-Medrol) 40 mg IVP Q8H [facility] Last Admin: 11/08/18 23:13 Dose: 40 mg Montelukast Sodium (Singulair) 10 mg PO HS [facility] Last Admin: 11/08/18 22:01 Dose: 10 mg Pantoprazole Sodium (Protonix Ec Tab) 40 mg PO ACB [facility] Last Admin: 11/08/18 06:58 Dose: 40 mg Verapamil HCl (Verapamil Inj) 2.5 mg IVP Q6 PRN PRN Reason: Heart rate - Labs Labs: 11/08/18 06:36 11/08/18 06:36 PT 12.7 SECONDS (9.4-12.5) H 11/05/18 17:25 INR 1.14 11/05/18 17:25 APTT 31.4 Seconds (26.9-38.3) 11/05/18 17:25 Assessment and Plan - Assessment and Plan (Free Text) Assessment: A 73 year old female who came in to the ER due to shortness of breath. History of extensive smoking, (60 pack years) chronic obstructive pulmonary disease, on home oxygen, history of lung cancer with chemotherapy and radiation, history of colon cancer post colectomy in 2003. CT of chest done and showed Pulmonary f ibrosis most severe in the right lower and upper lobe. Multiple bullae are seen. There is a 15 mm nodule in the right apex within the fibrosis. A 6 mm nodule on the left lung apex. Small right pleural effusion. History of endovascular graft. Ruled out congestive heart failure. Admitted for exacerba tion of COPD and pneumonia. Echo done and showed LVEF 40%, mildly decreased systolic dysfunction, trace mitral regurgitation, mild to moderate tricuspid regurgitation, RVSP 61 mmHg suggestive of moderate to severe pulmonaary hypertension. ID on consult. On IV antibiotics. Pulmonary and Oncology on c onsult.Symptoms cilinically improved. No further cardiac work up at this time. Discharge planning. Evaluated by GI. Plan: Symptoms cilinically improved No distress, denies shortness of breath, wanted to go home Heart rate stable Blood pressure stable Cardiac status stable No further cardiac work up at this time. On ASA 81 mg daily,Lasix 40 mg daily,Solumedrol 40 mg every 8 hours Continue current treatment Continue current medications ID on consult. Continue IV antibiotics Pulmonary and Oncology on consult Nutritional support Discharge planning. Will follow up Plan and treatment discussed with Dr. Griffin
[2018-11-09] MEDS: MethylPREDNISolone 40 mg Vial IVP SCH ×2 (07:36→21:30)
[2018-11-09] MEDS: Arformoterol 15 mcg/2 ml Inh Sol IH SCH ×2 (07:43→19:39)
[2018-11-09] MEDS: Budesonide 0.5 mg/2 ml Inhal Susp UD IH SCH ×2 (07:43→19:39)
--- NOTE | 2018-11-09 08:06 | CP.PCM.PN ---
<Dung Yan - Last Filed: 11/09/18 15:10> Subjective - Date & Time of Evaluation Date of Evaluation: 11/09/18 Time of Evaluation: 08:45 - Subjective Subjective: Infectious disease progress note: Patient seen and examined at bedside. No acute events overnight. Cough has improved. No fevers or chills. 12 point ROS performed and negative unless stated above. Objective - Vital Signs/Intake and Output Vital Signs (last 24 hours): Temp Pulse Resp BP Pulse Ox 98.4 F 99 H 20 133/80 100 11/08/18 22:20 11/08/18 18:00 11/08/18 22:20 11/08/18 22:20 11/08/18 22:20 Intake and Output: 11/09/18 11/09/18 06:59 18:59 Intake Total 520 Balance 520 - Medications Medications: Current Medications Acetaminophen (Tylenol 325mg Tab) 650 mg PO Q6H PRN PRN Reason: Pain, severe (8-10) WITH CODEI Arformoterol Tartrate (Brovana) 15 mcg IH [id number] [facility] Last Admin: 11/09/18 07:43 Dose: 15 mcg Aspirin (Ecotrin) 81 mg PO DAILY [facility] Last Admin: 11/08/18 11:03 Dose: 81 mg Budesonide (Pulmicort Respules) 0.5 mg IH BIDRESP [facility] Last Admin: 11/09/18 07:43 Dose: 0.5 mg Carvedilol (Coreg) 3.125 mg PO BID [facility] Last Admin: 11/08/18 18:00 Dose: 3.125 mg Doxycycline Hyclate (Doryx) 100 mg PO Q12 [facility]; Protocol Stop: 11/15/18 22:01 Last Admin: 11/08/18 22:01 Dose: 100 mg Enoxaparin Sodium (Lovenox) 40 mg SC DAILY [facility]; Protocol Last Admin: 11/08/18 11:04 Dose: 40 mg Fluticasone Propionate (Flonase) 1 actuation NS HS [facility] Last Admin: 11/08/18 22:26 Dose: Not Given Furosemide (Lasix) 40 mg IVP DAILY [facility] Last Admin: 11/08/18 11:04 Dose: Not Given Furosemide (Lasix) 40 mg PO DAILY [facility] Last Admin: 11/08/18 11:03 Dose: 40 mg Home Med (Home Med) 1 unit PO Q6 PRN PRN Reason: Pain, Mild (1-3) Last Admin: 11/09/18 05:53 Dose: 1 unit Cefepime HCl (Maxipime 1gm) 1 gm in 100 mls @ 100 mls/hr IVPB Q12 [facility]; Protocol Last Admin: 11/08/18 22:02 Dose: 100 mls/hr Levalbuterol HCl (Xopenex) 1.25 mg IH [id number] PRN PRN Reason: Shortness of Breath Lisinopril (Zestril) 2.5 mg PO DAILY [facility] Methylprednisolone (Solu-Medrol) 40 mg IVP Q8H [facility] Last Admin: 11/09/18 07:36 Dose: 40 mg Montelukast Sodium (Singulair) 10 mg PO HS [facility] Last Admin: 11/08/18 22:01 Dose: 10 mg Pantoprazole Sodium (Protonix Ec Tab) 40 mg PO ACB [facility] Last Admin: 11/08/18 06:58 Dose: 40 mg Verapamil HCl (Verapamil Inj) 2.5 mg IVP Q6 PRN PRN Reason: Heart rate - Labs Labs: 11/08/18 06:36 11/08/18 06:36 PT 12.7 SECONDS (9.4-12.5) H 11/05/18 17:25 INR 1.14 11/05/18 17:25 APTT 31.4 Seconds (26.9-38.3) 11/05/18 17:25 - Constitutional Appears: No Acute Distress - Eye Exam Eye Exam: EOMI - Respiratory Exam Respiratory Exam: Clear to Ausculation Bilateral. absent: Rales, Wheezes - Cardiovascular Exam Cardiovascular Exam: REGULAR RHYTHM, +S1, +S2 - GI/Abdominal Exam GI & Abdominal Exam: Soft. absent: Tenderness - Extremities Exam Extremities Exam: absent: Calf Tenderness, Pedal Edema - Neurological Exam Neurological Exam: Alert, Awake - Psychiatric Exam Psychiatric exam: Normal Mood - Skin Skin Exam: Dry, Warm Assessment and Plan - Assessment and Plan (Free Text) Assessment: Sepsis with RLL CAP Acute CHF exacerbation with systolic dys Lung cancer Lung cancer status post resection COPD on home oxygen Anemia Discontinue cefepime completed 4 days of therapy. Will continue doxycycline PO 100mg BID for 5 days Follow-up septic work-up including blood, urine cultures and MRSA screen Procalcitonin is negative, f/u repeat procal - neg CXR shows RLL infiltrate, CT chest shows fibrosis and lung nodules Follow-up cardiology and oncology recommendations Bone scan, Thoracic spine xray, and bone density - negative Continue to monitor for any changes Case and plan to be reviewed and discussed with Dr. Nunes <Matias Nunes - Last Filed: 11/09/18 22:55> Objective - Vital Signs/Intake and Output Vital Signs (last 24 hours): Temp Pulse Resp BP Pulse Ox 97.8 F 66 20 125/78 95 11/09/18 22:00 11/09/18 22:00 11/09/18 22:00 11/09/18 22:00 11/09/18 22:00 Intake and Output: 11/09/18 11/10/18 18:59 06:59 Intake Total 600 Balance 600 - Medications Medications: Current Medications Acetaminophen (Tylenol 325mg Tab) 650 mg PO Q6H PRN PRN Reason: Pain, severe (8-10) WITH CODEI Arformoterol Tartrate (Brovana) 15 mcg IH [id number] [facility] Last Admin: 11/09/18 19:39 Dose: 15 mcg Aspirin (Ecotrin) 81 mg PO DAILY [facility] Last Admin: 11/09/18 10:09 Dose: 81 mg Budesonide (Pulmicort Respules) 0.5 mg IH BIDRESP [facility] Last Admin: 11/09/18 19:39 Dose: 0.5 mg Carvedilol (Coreg) 3.125 mg PO BID [facility] Last Admin: 11/09/18 18:57 Dose: 3.125 mg Doxycycline Hyclate (Doryx) 100 mg PO Q12 [facility]; Protocol Stop: 11/15/18 22:01 Last Admin: 11/09/18 21:30 Dose: 100 mg Enoxaparin Sodium (Lovenox) 40 mg SC DAILY [facility]; Protocol Last Admin: 11/09/18 10:12 Dose: 40 mg Fluticasone Propionate (Flonase) 1 actuation NS HS [facility] Last Admin: 11/08/18 22:26 Dose: Not Given Furosemide (Lasix) 40 mg IVP DAILY [facility] Last Admin: 11/09/18 10:15 Dose: Not Given Furosemide (Lasix) 40 mg PO DAILY [facility] Last Admin: 11/09/18 10:12 Dose: 40 mg Home Med (Home Med) 1 unit PO Q6 PRN PRN Reason: Pain, Mild (1-3) Last Admin: 11/09/18 20:10 Dose: 1 unit Levalbuterol HCl (Xopenex) 1.25 mg IH [id number] PRN PRN Reason: Shortness of Breath Lisinopril (Zestril) 2.5 mg PO DAILY [facility] Last Admin: 11/09/18 10:10 Dose: 2.5 mg Methylprednisolone (Solu-Medrol) 40 mg IVP Q12 [facility] Last Admin: 11/09/18 21:30 Dose: 40 mg Montelukast Sodium (Singulair) 10 mg PO HS [facility] Last Admin: 11/09/18 21:30 Dose: 10 mg Pantoprazole Sodium (Protonix Ec Tab) 40 mg PO ACB [facility] Last Admin: 11/09/18 10:10 Dose: 40 mg Verapamil HCl (Verapamil Inj) 2.5 mg IVP Q6 PRN PRN Reason: Heart rate - Labs Labs: 11/08/18 06:36 11/08/18 06:36 PT 12.7 SECONDS (9.4-12.5) H 11/05/18 17:25 INR 1.14 11/05/18 17:25 APTT 31.4 Seconds (26.9-38.3) 11/05/18 17:25 Attending/Attestation - Attestation I have personally seen and examined this patient.: Yes I have fully participated in the care of the patient.: Yes I have reviewed all pertinent clinical information, including history, physical exam and plan: Yes
--- NOTE | 2018-11-09 08:57 | CP.PCM.PN ---
<FloraBaldemar - Last Filed: 11/09/18 08:54> Subjective - Date & Time of Evaluation Date of Evaluation: 11/08/18 Time of Evaluation: 08:55 - Subjective Subjective: Heme/Onc progress note - Flora PGy - 2 Patient seen and examined at bedside with no acute overnight events; pain is much better controlled today. denies any acute complaints including sob, chest pain. Objective - Vital Signs/Intake and Output Vital Signs (last 24 hours): Temp Pulse Resp BP Pulse Ox 98.1 F 73 18 131/78 93 L 11/09/18 06:00 11/09/18 06:00 11/09/18 06:00 11/09/18 06:00 11/09/18 06:00 Intake and Output: 11/09/18 11/09/18 06:59 18:59 Intake Total 520 Balance 520 - Medications Medications: Current Medications Acetaminophen (Tylenol 325mg Tab) 650 mg PO Q6H PRN PRN Reason: Pain, severe (8-10) WITH CODEI Arformoterol Tartrate (Brovana) 15 mcg IH [id number] [facility] Last Admin: 11/09/18 07:43 Dose: 15 mcg Aspirin (Ecotrin) 81 mg PO DAILY [facility] Last Admin: 11/08/18 11:03 Dose: 81 mg Budesonide (Pulmicort Respules) 0.5 mg IH BIDRESP [facility] Last Admin: 11/09/18 07:43 Dose: 0.5 mg Carvedilol (Coreg) 3.125 mg PO BID [facility] Last Admin: 11/08/18 18:00 Dose: 3.125 mg Doxycycline Hyclate (Doryx) 100 mg PO Q12 [facility]; Protocol Stop: 11/15/18 22:01 Last Admin: 11/08/18 22:01 Dose: 100 mg Enoxaparin Sodium (Lovenox) 40 mg SC DAILY [facility]; Protocol Last Admin: 11/08/18 11:04 Dose: 40 mg Fluticasone Propionate (Flonase) 1 actuation NS HS [facility] Last Admin: 11/08/18 22:26 Dose: Not Given Furosemide (Lasix) 40 mg IVP DAILY [facility] Last Admin: 11/08/18 11:04 Dose: Not Given Furosemide (Lasix) 40 mg PO DAILY [facility] Last Admin: 11/08/18 11:03 Dose: 40 mg Home Med (Home Med) 1 unit PO Q6 PRN PRN Reason: Pain, Mild (1-3) Last Admin: 11/09/18 05:53 Dose: 1 unit Cefepime HCl (Maxipime 1gm) 1 gm in 100 mls @ 100 mls/hr IVPB Q12 [facility]; Protocol Last Admin: 11/08/18 22:02 Dose: 100 mls/hr Levalbuterol HCl (Xopenex) 1.25 mg IH [id number] PRN PRN Reason: Shortness of Breath Lisinopril (Zestril) 2.5 mg PO DAILY [facility] Methylprednisolone (Solu-Medrol) 40 mg IVP Q8H [facility] Last Admin: 11/09/18 07:36 Dose: 40 mg Montelukast Sodium (Singulair) 10 mg PO HS [facility] Last Admin: 11/08/18 22:01 Dose: 10 mg Pantoprazole Sodium (Protonix Ec Tab) 40 mg PO ACB [facility] Last Admin: 11/08/18 06:58 Dose: 40 mg Verapamil HCl (Verapamil Inj) 2.5 mg IVP Q6 PRN PRN Reason: Heart rate - Labs Labs: 11/08/18 06:36 11/08/18 06:36 PT 12.7 SECONDS (9.4-12.5) H 11/05/18 17:25 INR 1.14 11/05/18 17:25 APTT 31.4 Seconds (26.9-38.3) 11/05/18 17:25 - Constitutional Appears: Well - Head Exam Head Exam: ATRAUMATIC, NORMAL INSPECTION, NORMOCEPHALIC - Eye Exam Eye Exam: EOMI, Normal appearance, PERRL Pupil Exam: NORMAL ACCOMODATION, PERRL - ENT Exam ENT Exam: Mucous Membranes Moist, Normal Exam - Neck Exam Neck Exam: Full ROM, Normal Inspection. absent: Lymphadenopathy - Respiratory Exam Respiratory Exam: Clear to Ausculation Bilateral, NORMAL BREATHING PATTERN - Cardiovascular Exam Cardiovascular Exam: REGULAR RHYTHM, +S1, +S2. absent: Murmur - GI/Abdominal Exam GI & Abdominal Exam: Soft, Normal Bowel Sounds. absent: Tenderness - Extremities Exam Extremities Exam: Full ROM, Normal Capillary Refill, Normal Inspection. absent: Joint Swelling, Pedal Edema - Back Exam Back Exam: NORMAL INSPECTION - Neurological Exam Neurological Exam: Alert, Awake, CN II-XII Intact, Normal Gait, Oriented x3 - Psychiatric Exam Psychiatric exam: Normal Affect, Normal Mood - Skin Skin Exam: Dry, Intact, Normal Color, Warm Assessment and Plan - Assessment and Plan (Free Text) Assessment: 73 F with pertinent medical history of past malignancy presents with shortness of breath; Heme/onc consulted for evaluation for myeloma. Of note, CT Scan was reviewed which showed R sided effusion; patient with past history of malignancy is concerning. Patient did not have any bony lesions on CT scan and does not have hypercalcemia or renal failure. Pleural effusion does not need to be tapped right now, will continue to monitor. Bone scan and thoracic spine imaging are both negative. Patient should follow up with her oncologist in [place] upon discharge. Plan - Studies pending: - Alpha globin - Immunofixation - Free [place]/lambda - [place] light chain - [place]/lambda free with ratio - SPEP <Zoey Pabon P - Last Filed: 11/09/18 14:24> Objective - Vital Signs/Intake and Output Vital Signs (last 24 hours): Temp Pulse Resp BP Pulse Ox 98.1 F 73 18 132/82 93 L 11/09/18 06:00 11/09/18 06:00 11/09/18 06:00 11/09/18 10:12 11/09/18 06:00 Intake and Output: 11/09/18 11/09/18 06:59 18:59 Intake Total 520 Balance 520 - Medications Medications: Current Medications Acetaminophen (Tylenol 325mg Tab) 650 mg PO Q6H PRN PRN Reason: Pain, severe (8-10) WITH CODEI Arformoterol Tartrate (Brovana) 15 mcg IH [id number] [facility] Last Admin: 11/09/18 07:43 Dose: 15 mcg Aspirin (Ecotrin) 81 mg PO DAILY [facility] Last Admin: 11/09/18 10:09 Dose: 81 mg Budesonide (Pulmicort Respules) 0.5 mg IH BIDRESP [facility] Last Admin: 11/09/18 07:43 Dose: 0.5 mg Carvedilol (Coreg) 3.125 mg PO BID [facility] Last Admin: 11/09/18 10:11 Dose: 3.125 mg Doxycycline Hyclate (Doryx) 100 mg PO Q12 [facility]; Protocol Stop: 11/15/18 22:01 Last Admin: 11/09/18 10:10 Dose: 100 mg Enoxaparin Sodium (Lovenox) 40 mg SC DAILY [facility]; Protocol Last Admin: 11/09/18 10:12 Dose: 40 mg Fluticasone Propionate (Flonase) 1 actuation NS HS [facility] Last Admin: 11/08/18 22:26 Dose: Not Given Furosemide (Lasix) 40 mg IVP DAILY [facility] Last Admin: 11/09/18 10:15 Dose: Not Given Furosemide (Lasix) 40 mg PO DAILY [facility] Last Admin: 11/09/18 10:12 Dose: 40 mg Home Med (Home Med) 1 unit PO Q6 PRN PRN Reason: Pain, Mild (1-3) Last Admin: 11/09/18 13:32 Dose: 1 unit Cefepime HCl (Maxipime 1gm) 1 gm in 100 mls @ 100 mls/hr IVPB Q12 [facility]; Protocol Last Admin: 11/09/18 10:12 Dose: 100 mls/hr Levalbuterol HCl (Xopenex) 1.25 mg IH [id number] PRN PRN Reason: Shortness of Breath Lisinopril (Zestril) 2.5 mg PO DAILY [facility] Last Admin: 11/09/18 10:10 Dose: 2.5 mg Methylprednisolone (Solu-Medrol) 40 mg IVP Q12 [facility] Montelukast Sodium (Singulair) 10 mg PO HS [facility] Last Admin: 11/08/18 22:01 Dose: 10 mg Pantoprazole Sodium (Protonix Ec Tab) 40 mg PO ACB [facility] Last Admin: 11/09/18 10:10 Dose: 40 mg Verapamil HCl (Verapamil Inj) 2.5 mg IVP Q6 PRN PRN Reason: Heart rate - Labs Labs: 11/08/18 06:36 11/08/18 06:36 PT 12.7 SECONDS (9.4-12.5) H 11/05/18 17:25 INR 1.14 11/05/18 17:25 APTT 31.4 Seconds (26.9-38.3) 11/05/18 17:25 Attending/Attestation - Attestation I have personally seen and examined this patient.: Yes I have fully participated in the care of the patient.: Yes I have reviewed all pertinent clinical information, including history, physical exam and plan: Yes
--- NOTE | 2018-11-09 09:03 | CP.PCM.PN ---
<Con Medrano - Last Filed: 11/09/18 18:18> Subjective - Date & Time of Evaluation Date of Evaluation: 11/09/18 Time of Evaluation: 08:15 - Subjective Subjective: PGY-4 GI Fellow Prog Note Pt sitting up in bed eating breakfast when seen this AM. States breathing cont to improve. Reports BM without signs of bleeding last night. 5 point ROS negative other than stated above Objective - Vital Signs/Intake and Output Vital Signs (last 24 hours): Temp Pulse Resp BP Pulse Ox 98.1 F 73 18 131/78 93 L 11/09/18 06:00 11/09/18 06:00 11/09/18 06:00 11/09/18 06:00 11/09/18 06:00 Intake and Output: 11/09/18 11/09/18 06:59 18:59 Intake Total 520 Balance 520 - Medications Medications: Current Medications Acetaminophen (Tylenol 325mg Tab) 650 mg PO Q6H PRN PRN Reason: Pain, severe (8-10) WITH CODEI Arformoterol Tartrate (Brovana) 15 mcg IH [id number] [facility] Last Admin: 11/09/18 07:43 Dose: 15 mcg Aspirin (Ecotrin) 81 mg PO DAILY [facility] Last Admin: 11/08/18 11:03 Dose: 81 mg Budesonide (Pulmicort Respules) 0.5 mg IH BIDRESP [facility] Last Admin: 11/09/18 07:43 Dose: 0.5 mg Carvedilol (Coreg) 3.125 mg PO BID [facility] Last Admin: 11/08/18 18:00 Dose: 3.125 mg Doxycycline Hyclate (Doryx) 100 mg PO Q12 [facility]; Protocol Stop: 11/15/18 22:01 Last Admin: 11/08/18 22:01 Dose: 100 mg Enoxaparin Sodium (Lovenox) 40 mg SC DAILY [facility]; Protocol Last Admin: 11/08/18 11:04 Dose: 40 mg Fluticasone Propionate (Flonase) 1 actuation NS HS [facility] Last Admin: 11/08/18 22:26 Dose: Not Given Furosemide (Lasix) 40 mg IVP DAILY [facility] Last Admin: 11/08/18 11:04 Dose: Not Given Furosemide (Lasix) 40 mg PO DAILY [facility] Last Admin: 11/08/18 11:03 Dose: 40 mg Home Med (Home Med) 1 unit PO Q6 PRN PRN Reason: Pain, Mild (1-3) Last Admin: 11/09/18 05:53 Dose: 1 unit Cefepime HCl (Maxipime 1gm) 1 gm in 100 mls @ 100 mls/hr IVPB Q12 [facility]; Protocol Last Admin: 11/08/18 22:02 Dose: 100 mls/hr Levalbuterol HCl (Xopenex) 1.25 mg IH [id number] PRN PRN Reason: Shortness of Breath Lisinopril (Zestril) 2.5 mg PO DAILY [facility] Methylprednisolone (Solu-Medrol) 40 mg IVP Q8H [facility] Last Admin: 11/09/18 07:36 Dose: 40 mg Montelukast Sodium (Singulair) 10 mg PO HS [facility] Last Admin: 11/08/18 22:01 Dose: 10 mg Pantoprazole Sodium (Protonix Ec Tab) 40 mg PO ACB [facility] Last Admin: 11/08/18 06:58 Dose: 40 mg Verapamil HCl (Verapamil Inj) 2.5 mg IVP Q6 PRN PRN Reason: Heart rate - Labs Labs: 11/08/18 06:36 11/08/18 06:36 PT 12.7 SECONDS (9.4-12.5) H 11/05/18 17:25 INR 1.14 11/05/18 17:25 APTT 31.4 Seconds (26.9-38.3) 11/05/18 17:25 - Constitutional Appears: No Acute Distress, Chronically Ill - Head Exam Head Exam: ATRAUMATIC, NORMAL INSPECTION - Eye Exam Eye Exam: EOMI. absent: Scleral icterus - ENT Exam ENT Exam: Mucous Membranes Moist. absent: Mucous Membranes Dry - Respiratory Exam Respiratory Exam: NORMAL BREATHING PATTERN. absent: Accessory Muscle Use - GI/Abdominal Exam GI & Abdominal Exam: Soft, Normal Bowel Sounds. absent: Bruit, Distended, Firm, Guarding, Rigid, Tenderness, Mass, Organomegaly Assessment and Plan - Assessment and Plan (Free Text) Assessment: 73 yo F with COPD (2 L at baseline), h/o lung tumor (s/p resections?, XRT, chemo), Colon CA (2003 s/p resection) presenting on 11/05/18 with worsening shortness of breath and LE edema, ultimately treated for COPD+CHF exacerbation. GI later consulted for anemia. # Normocytic Anemia: Hgb 9.9. Unclear baseline. Vitals stable and no signs of active GI bleed at this time. 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 Mann; please see attestation for further details/changes. <Susan Mann V - Last Filed: 11/09/18 18:40> Objective - Vital Signs/Intake and Output Vital Signs (last 24 hours): Temp Pulse Resp BP Pulse Ox 973 F H 86 18 112/73 97 11/09/18 14:00 11/09/18 14:00 11/09/18 14:00 11/09/18 14:00 11/09/18 16:20 Intake and Output: 11/09/18 11/09/18 06:59 18:59 Intake Total 520 600 Balance 520 600 - Medications Medications: Current Medications Acetaminophen (Tylenol 325mg Tab) 650 mg PO Q6H PRN PRN Reason: Pain, severe (8-10) WITH CODEI Arformoterol Tartrate (Brovana) 15 mcg IH [id number] [facility] Last Admin: 11/09/18 07:43 Dose: 15 mcg Aspirin (Ecotrin) 81 mg PO DAILY [facility] Last Admin: 11/09/18 10:09 Dose: 81 mg Budesonide (Pulmicort Respules) 0.5 mg IH BIDRESP [facility] Last Admin: 11/09/18 07:43 Dose: 0.5 mg Carvedilol (Coreg) 3.125 mg PO BID [facility] Last Admin: 11/09/18 10:11 Dose: 3.125 mg Doxycycline Hyclate (Doryx) 100 mg PO Q12 [facility]; Protocol Stop: 11/15/18 22:01 Last Admin: 11/09/18 10:10 Dose: 100 mg Enoxaparin Sodium (Lovenox) 40 mg SC DAILY [facility]; Protocol Last Admin: 11/09/18 10:12 Dose: 40 mg Fluticasone Propionate (Flonase) 1 actuation NS HS [facility] Last Admin: 11/08/18 22:26 Dose: Not Given Furosemide (Lasix) 40 mg IVP DAILY [facility] Last Admin: 11/09/18 10:15 Dose: Not Given Furosemide (Lasix) 40 mg PO DAILY [facility] Last Admin: 11/09/18 10:12 Dose: 40 mg Home Med (Home Med) 1 unit PO Q6 PRN PRN Reason: Pain, Mild (1-3) Last Admin: 11/09/18 13:32 Dose: 1 unit Levalbuterol HCl (Xopenex) 1.25 mg IH [id number] PRN PRN Reason: Shortness of Breath Lisinopril (Zestril) 2.5 mg PO DAILY [facility] Last Admin: 11/09/18 10:10 Dose: 2.5 mg Methylprednisolone (Solu-Medrol) 40 mg IVP Q12 [facility] Montelukast Sodium (Singulair) 10 mg PO HS [facility] Last Admin: 11/08/18 22:01 Dose: 10 mg Pantoprazole Sodium (Protonix Ec Tab) 40 mg PO ACB [facility] Last Admin: 11/09/18 10:10 Dose: 40 mg Verapamil HCl (Verapamil Inj) 2.5 mg IVP Q6 PRN PRN Reason: Heart rate - Labs Labs: 11/08/18 06:36 11/08/18 06:36 PT 12.7 SECONDS (9.4-12.5) H 11/05/18 17:25 INR 1.14 11/05/18 17:25 APTT 31.4 Seconds (26.9-38.3) 11/05/18 17:25 Attending/Attestation - Attestation I have personally seen and examined this patient.: Yes I have fully participated in the care of the patient.: Yes I have reviewed all pertinent clinical information, including history, physical exam and plan: Yes Notes (Text): This is an addendum to the GI progress note dictated by the fellow. The patient was seen and evaluated along with the fellow earlier today. Patient is fully aware of these anemia and history of colon cancer. She was clearly told in the previous hospitalization in [place] that she is a high risk patient for any procedure. She is presently reluctant to have any endoscopy evaluation. Patient was also found to have an elevated CA 199. The CT was done with IV contrast did not really obvious pancreatic lesion. It may be reasonable to consider MRI of the abdomen with the MRCP to further evaluate. However patient need to lie still in MRI machine and also has to hold her breath if needed. It may be difficult for her to compliant with that at this time with his present respiratory status. We will also discuss with the primary physician and also patient's family. 11/09/18 18:38
[2018-11-09 09:24] LABS: ALBUMIN (PEP) 3.5 g/dL (3.8-4.8); ALPHA-1-GLOBULIN (PEP) 0.5 g/dL (0.2-0.3)
--- NOTE | 2018-11-09 09:57 | PN ---
DATE: 11/08/2018 SUBJECTIVE: The patient is stable. Breathing is better. She complained of pain. She wanted to use the pain medicine that she takes at home. Otherwise, the patient seems better breathing roberto. No cough, no respiratory distress at this time. PHYSICAL EXAMINATION: VITAL SIGNS: Temperature 98.4, heart rate 89, blood pressure 114/73, respirations 20, sat 100% on 4L. HEAD AND NECK: Normal. No JVD. No thyromegaly. CHEST: Diminished breath sounds at the bases. CARDIAC: First sound and second sound normal. No murmur, rub, or gallop. ABDOMEN: Soft, nontender. EXTREMITIES: No edema. NEUROLOGICAL: Normal. LABORATORY DATA: White count 7.2, hemoglobin 10.4, hematocrit 33.3, platelets 353. Chemistries; sodium 138, potassium 4.1, chloride 95, bicarbonate 33, BUN 30, creatinine 0.7. Blood sugar 123. Her liver enzymes seem normal except AST slightly elevated. The patient also had serum protein electrophoresis. She has a high IgG, high IgE, and IgM of 62. The patient also had MRSA negative. IMPRESSION AND PLAN: 1. Acute congestive heart failure. The patient was seen by Cardiology, Dr. Griffin. She is on IV Lasix right now, seems doing well with that. Her ejection fraction is 40% according to Dr. Griffin. Right ventricle is normal systolic function, decreased left ventricular function, normal aortic valve. Mitral valve normal. Tricuspid valve normal. There is [id number] tricuspid regurgitation and right ventricular systolic pressure is 61 suggestive of [id number] pulmonary hypertension. 2. Pulmonary hypertension. Continue diuretics. 3. Underlying lung disease. 4. Cardiomyopathy, etiology unclear. May be radiation related. She had radiation therapy to her lung; however, coronary artery disease must be ruled out. 5. Chronic back pain. The patient had scan which showed negative study for myeloma or any problem. Bone scan is still pending. 6. Acute chronic obstructive pulmonary disease exacerbation. Continue IV steroids. 7. Hypertension. Stable on verapamil 2.5 IV every 6 hours and Zestril 2.5 mg p.o. daily. Continue IV steroid. Continue inhaled bronchodilators. 8. Pneumonia, community acquired. Continue Maxipime and doxycycline. 9. Chronic back pain. Continue oxycodone. 10. Generalized weakness. The patient needs physical therapy and TCU evaluation. Steven Weeks MD
[2018-11-09] MEDS ORDERED: MethylPREDNISolone 40 mg Vial IVP SCH (10:08)
[2018-11-09] MEDS: Pantoprazole 40 mg EC Tab PO SCH (10:10)
[2018-11-09] MEDS: Enoxaparin 40 mg Syringe SC SCH (10:12)
[2018-11-09] MEDS: Cefepime 1gm in NS 100ml 1 GM/100 ML BAG IVPB SCH (10:12)
--- NOTE | 2018-11-09 11:02 | NM ---
Date of service: 11/08/2018 PROCEDURE: Whole Body Bone Scan HISTORY: pain in right upper back COMPARISON: None available. TECHNIQUE: Following administration of 26.7 miCu of Tc MDP multiplanar whole body images were obtained. FINDINGS: Evidence for bony metastatic disease: None. Degenerative uptake: None. Physiologic uptake: Normal physiologic activity in the kidneys. Other findings: None. IMPRESSION: No evidence of bony metastatic disease.
--- NOTE | 2018-11-09 12:56 | PN ---
DATE: 11/09/2018 PULMONARY PROGRESS NOTE REFERRING PHYSICIAN: Steven Weeks MD SUBJECTIVE: The patient was seen lying in bed, in no acute distress. No overnight events reported. States that she feels better this morning. Cough and shortness of breath are better. No headache, rhinitis, cough, shortness of breath, chest pain, abdominal pain, nausea, vomiting, diarrhea, leg pain, or leg swelling reported. OBJECTIVE: GENERAL: No acute distress. VITAL SIGNS: Blood pressure 131/78, pulse 73, temperature 98.1, oxygen saturation 93%. HEENT: Moist mucous membranes. Mallampati score of 4. Crowded airway. NECK: Supple. No JVD. LUNGS: Few scattered rhonchi. Decreased breath sounds. CARDIOVASCULAR: S1, S2. ABDOMEN: Soft, nontender. No distention. No organomegaly. EXTREMITIES: No bilateral lower extremity edema. NEUROLOGIC: Awake, alert, verbal. Following commands. LABORATORY DATA: Reviewed. Procalcitonin less than 0.05. Serum immunofixation detected. MRSA final not detected in the nares. Bone scan shows no evidence of bony metastatic disease. Thoracic spine x-ray shows no acute findings, there is severe osteoporosis. Bone density survey showed negative studies. There is COPD and pulmonary fibrosis in the right lower lobe. MEDICATIONS: Reviewed. Tylenol 650 every 6 hours p.r.n., Brovana 15 mcg inhalation every 12 hours, aspirin 81 mg daily, Pulmicort 0.5 mg inhalation twice a day, Coreg 3.125 mg twice a day, cefepime 1 g every 12 hours, doxycycline 100 mg every 12 hours, Lovenox 40 mg subcu daily, Flonase nasal spray at h.s., Lasix 40 mg IV push daily, Xopenex 1.25 mg inhalation every 6 hours p.r.n., lisinopril 2.5 mg daily, Solu-Medrol 40 mg IV push every 8 hours, Singulair 10 mg at h.s., Protonix 40 mg a.c., verapamil 2.5 mg IV push every 6 hours p.r.n. IMPRESSION AND PLAN: Congestive heart failure, history of lung cancer, status post resection; chronic obstructive pulmonary disease, the patient is on oxygen at home; anemia; cardiomyopathy; pulmonary hypertension, procalcitonin level is negative. The patient has pulmonary fibrosis. History of receiving chemotherapy and radiation for lung tumor, some bronchiectasis present, will need followup CAT scan of the chest to assure stability of lung nodule. Suspect sleep apnea in this patient. Sleep apnea precautions, head of bed elevated at 45 degrees. Recommend sleep study as outpatient. Recommend the patient have full pulmonary function test as outpatient. We will decrease Solu-Medrol to 40 mg every 12 hours. Recommend the patient would benefit from physical therapy. We will put in TCU evaluation. Fall precautions. The patient was seen and examined with Dr. Martinez. Discussed assessment and plan as described above. The patient was seen and examined by Coty Mullen, nurse practitioner. Discussed assessment and plan as described above. Thank you for this consult. We will follow with you. Coty Muleln APN Rosa Martinez MD
--- NOTE | 2018-11-09 21:58 | PN ---
DATE: 11/09/2018 This is [facility] visit on the medical floor. For Dr. Pabon. SUBJECTIVE: The patient is a 73-year-old female from [place] now being treated for COPD exacerbation, now known to have a 15-mm node in the right apex, a 6-mm node in the left apex as per CT angiogram. It showed pulmonary fibrosis recently. Also had tumor markers done, showed a CA value of 4, CA 19-9 of 150 from 11/06/2018. Also had D-dimers elevated at 2291 on admission with IgG values being elevated at 2643 and IgA of 884, with other testing pending as per Dr. Pabon's recommendations. At present, the patient is without complaint, anxious for discharge home with her original presentation now significantly improved with the patient having a known history of cancer of the lung. She also had a bone scan done recently, which was read as negative. PHYSICAL EXAMINATION VITAL SIGNS: Temperature 98.1, pulse 73, respirations 18, blood pressure 131/78, pulse ox 93%. HEENT: Unremarkable. NECK: Supple. HEART: Occasional rhonchi. LUNGS: Decreased breath sounds at the bases. ABDOMEN: Soft and nontender. EXTREMITIES: No edema. SKIN: Warm and dry. NEUROLOGIC: Awake and alert. LABORATORY DATA: The patient's labs were done yesterday and were reviewed. Other labs as listed above. Just returned now is serum immunofixation showing a faint band in IgG kappa is present, it is a dense polyclonal background. There was a reactive inflammatory response for a developing plasma cell disorder. Other testing is still pending. A bone scan was done, which showed no evidence of bony metastatic disease. ASSESSMENT AND PLAN: 1. Congestive heart failure. 2. History of cancer of the lung status post resection. 3. Chronic obstructive pulmonary disease. 4. Cardiomyopathy. 5. Pulmonary hypertension. 6. Pulmonary fibrosis with abnormal labs including a CA 19-9 that is elevated. PLAN: Plan for this patient after a conversation with Dr. Pabon is to continue present medical regimen with followup as per doctors in [place] with any testing here to be forwarded to them with possible followup here in [place] should she elect to continue this with Dr. Pabon in the office if she is discharged as she is anxious to do so. Otherwise, she is in no acute distress this visit. This is a complex patient with a comprehensive medically necessary and appropriate visit carried out in excess of 20 minutes with the patient's questions answered to her satisfaction. Buddy Heart MD
[2018-11-10] MEDS: Fluticasone Nasal 50 mcg/Spray NS SCH ×2 (01:04→23:21)
--- NOTE | 2018-11-10 07:03 | CP.PCM.PN ---
Subjective - Date & Time of Evaluation Date of Evaluation: 11/10/18 Time of Evaluation: 06:48 - Subjective Subjective: Awake, alert, no distress, lying in bed Reason for consultation and follow up:Cardiac evaluation of elevated BNP, admitted for shortness of breath, ruled out congestive heart failure Seen and examined by me and Dr. Griffin Objective - Vital Signs/Intake and Output Vital Signs (last 24 hours): Temp Pulse Resp BP Pulse Ox 97.8 F 66 20 125/78 95 11/09/18 22:00 11/09/18 22:00 11/09/18 22:00 11/09/18 22:00 11/09/18 22:00 - Medications Medications: Current Medications Acetaminophen (Tylenol 325mg Tab) 650 mg PO Q6H PRN PRN Reason: Pain, severe (8-10) WITH CODEI Arformoterol Tartrate (Brovana) 15 mcg IH [id number] [facility] Last Admin: 11/09/18 19:39 Dose: 15 mcg Aspirin (Ecotrin) 81 mg PO DAILY [facility] Last Admin: 11/09/18 10:09 Dose: 81 mg Budesonide (Pulmicort Respules) 0.5 mg IH BIDRESP [facility] Last Admin: 11/09/18 19:39 Dose: 0.5 mg Carvedilol (Coreg) 3.125 mg PO BID [facility] Last Admin: 11/09/18 18:57 Dose: 3.125 mg Doxycycline Hyclate (Doryx) 100 mg PO Q12 [facility]; Protocol Stop: 11/15/18 22:01 Last Admin: 11/09/18 21:30 Dose: 100 mg Enoxaparin Sodium (Lovenox) 40 mg SC DAILY [facility]; Protocol Last Admin: 11/09/18 10:12 Dose: 40 mg Fluticasone Propionate (Flonase) 1 actuation NS HS [facility] Last Admin: 11/10/18 01:04 Dose: Not Given Furosemide (Lasix) 40 mg IVP DAILY [facility] Last Admin: 11/09/18 10:15 Dose: Not Given Furosemide (Lasix) 40 mg PO DAILY [facility] Last Admin: 11/09/18 10:12 Dose: 40 mg Home Med (Home Med) 1 unit PO Q6 PRN PRN Reason: Pain, Mild (1-3) Last Admin: 11/10/18 03:39 Dose: 1 unit Levalbuterol HCl (Xopenex) 1.25 mg IH [id number] PRN PRN Reason: Shortness of Breath Lisinopril (Zestril) 2.5 mg PO DAILY [facility] Last Admin: 11/09/18 10:10 Dose: 2.5 mg Methylprednisolone (Solu-Medrol) 40 mg IVP Q12 [facility] Last Admin: 11/09/18 21:30 Dose: 40 mg Montelukast Sodium (Singulair) 10 mg PO HS [facility] Last Admin: 11/09/18 21:30 Dose: 10 mg Pantoprazole Sodium (Protonix Ec Tab) 40 mg PO ACB [facility] Last Admin: 11/09/18 10:10 Dose: 40 mg Verapamil HCl (Verapamil Inj) 2.5 mg IVP Q6 PRN PRN Reason: Heart rate - Labs Labs: 11/08/18 06:36 11/08/18 06:36 PT 12.7 SECONDS (9.4-12.5) H 11/05/18 17:25 INR 1.14 11/05/18 17:25 APTT 31.4 Seconds (26.9-38.3) 11/05/18 17:25 - Constitutional Appears: Non-toxic, No Acute Distress - Head Exam Head Exam: NORMAL INSPECTION, NORMOCEPHALIC - Eye Exam Eye Exam: Normal appearance Pupil Exam: NORMAL ACCOMODATION - ENT Exam ENT Exam: Mucous Membranes Moist, Normal Exam - Respiratory Exam Respiratory Exam: Decreased Breath Sounds, NORMAL BREATHING PATTERN - Cardiovascular Exam Cardiovascular Exam: +S1, +S2 - GI/Abdominal Exam GI & Abdominal Exam: Soft, Normal Bowel Sounds - Extremities Exam Extremities Exam: Full ROM, Normal Capillary Refill - Neurological Exam Neurological Exam: Alert, Awake - Psychiatric Exam Psychiatric exam: Normal Affect, Normal Mood - Skin Skin Exam: Dry, Normal Color, Warm Assessment and Plan - Assessment and Plan (Free Text) Assessment: A 73 year old female who came in to the ER due to shortness of breath. History of extensive smoking, (60 pack years) chronic obstructive pulmonary disease, on home oxygen, history of lung cancer with chemotherapy and radiation, history of colon cancer post colectomy in 2003. CT of chest done and showed Pulmonary fibrosis most severe in the right lower and upper lobe. Multiple bullae are seen. There is a 15 mm nodule in the right apex within the fibrosis. A 6 mm nodule on the left lung apex. Small right pleural effusion. History of endovascular graft. Ruled out congestive heart failure. Admitted for exacerbation of COPD and pneumonia. Echo done and showed LVEF 40%, mildly decreased systolic dysfunction, trace mitral regurgitation, mild to moderate tricuspid regurgitation, RVSP 61 mmHg suggestive of moderate to severe pulmonary hypertension. ID on consult. On antibiotics. Pulmonary and Oncology on consult.Symptoms clinically improved. Evaluated by GI. No further cardiac work up at this time. She follows up medical care in [place], [place]. Plan: Cardiac status stable Heart rate stable Blood pressure stable No further cardiac work up at this time. On ASA 81 mg daily,Lasix 40 mg daily,Solumedrol 40 mg every 8 hours Continue current treatment Continue current medications ID on consult. Continue antibiotics GI/Pulmonary and Oncology on consult Nutritional support Discharge planning. Will follow up Plan and treatment discussed with Dr. Griffin
[2018-11-10 07:58] LABS: HEMOGLOBIN 11.7 g/dL (12.0-16.0); LYMPH # 1.2 (1.2-3.4); LYMPH % 20.6 % (22.0-35.0); MEAN CELL VOLUME 84.1 fl (80.0-105.0); MEAN CORPUSCULAR HEMOGLOBIN 25.9 pg (25.0-35.0); MEAN CORPUSCULAR HGB CONC 30.8 g/dl (31.0-37.0); MEAN PLATELET VOLUME 9.5 fl (7.0-11.0); MONO # 0.4 (0.1-0.6); MONO % 6.7 % (1.0-6.0); RBC 4.52 10^6/uL (3.5-6.1); RED CELL DISTRIBUTION WIDTH 17.7 % (11.5-14.5)
[2018-11-10 08:20] LABS: ALB/GLOB RATIO 0.8 (1.1-1.8); ALBUMIN 3.7 g/dL (3.0-4.8); ALT/SGPT 20 U/L (7-56); AST/SGOT 27 U/L (14-36); BLOOD UREA NITROGEN 33 mg/dL (7-21); CALCIUM 9.2 mg/dL (8.4-10.5); GFR NON-AFRICAN AMERICAN > 60
[2018-11-10] MEDS: Budesonide 0.5 mg/2 ml Inhal Susp UD IH SCH ×2 (10:12→21:15)
[2018-11-10] MEDS: Arformoterol 15 mcg/2 ml Inh Sol IH SCH ×2 (10:12→21:15)
[2018-11-10] MEDS: Pantoprazole 40 mg EC Tab PO SCH (10:51)
[2018-11-10] MEDS: MethylPREDNISolone 40 mg Vial IVP SCH ×2 (10:52→21:32)
[2018-11-10] MEDS: Enoxaparin 40 mg Syringe SC SCH (10:52)
--- NOTE | 2018-11-10 13:30 | PN ---
DATE: 11/10/2018 SUBJECTIVE: The patient is seen earlier today in no acute distress, nontoxic. No fevers. PHYSICAL EXAMINATION: VITAL SIGNS: On exam, temperature is 97, blood pressure is 113/70, respiratory rate of 18. HEENT: Unremarkable. NECK: Supple. HEART: Normal S1, S2. LUNGS: Decreased breath sounds. ABDOMEN: Soft. LABORATORY DATA: reveals a white count of 6. Hemoglobin of 11. BUN of 33 and creatinine of 0.8. Review of medications and orders reveals the patient is on p.o. doxycycline. ASSESSMENT AND PLAN: This is a 73-year-old female with sepsis with right lower lobe community-acquired pneumonia, systolic congestive heart failure on top of chronic systolic congestive heart failure in a patient with lung cancer, status post resection, chronic respiratory failure with chronic obstructive pulmonary disease on home oxygen and anemia. The patient is on doxycycline, complete 5 days of doxycycline at 100 mg p.o. b.i.d. Matias Nunes MD
--- NOTE | 2018-11-10 14:36 | PN ---
DATE: 11/09/2018 SUBJECTIVE: The patient is comfortable. No distress. She is getting her pain medicine. She has no nausea or vomiting. Her breathing seems better on IV Lasix. She has no other new complaints. Seems better with current medication. She is sill on IV Lasix 40 which will be switched to p.o. The patient is currently on IV steroids ____ 40 mg every 12 hours. PHYSICAL EXAMINATION: VITAL SIGNS: Temperature 97.8, heart rate 66, blood pressure 125/78, respirations 20, saturations 99%. HEAD AND NECK: Normal. No JVD, no thyromegaly. CHEST: Clear bilaterally. On lung exam, diminished breath sounds. CARDIAC: First sound and second sound normal. No murmur, rub, or gallop. ABDOMEN: Soft, nontender. EXTREMITIES: No edema. NEUROLOGICAL: Normal. LABORATORY STUDIES: The patient's labs ordered for tomorrow including CBC and comprehensive metabolic panel. IMPRESSION AND PLAN: 1. Acute congestive heart failure. Plan is to continue Lasix IV daily. Continue Zestril 2.5 mg daily and continue Coreg 3.125 mg p.o. b.i.d. 2. Acute chronic obstructive pulmonary disease exacerbation. Continue inhaled bronchodilators plus IV steroids. 3. Community-acquired pneumonia. She is on doxycycline. She is off Merrem now. 4. Chronic back pain. Continue her codeine. PLAN: Continue GI and DVT prophylaxis. The patient may need physical therapy. We will continue current therapy. She is still getting 2.5 mg of verapamil IV every 6 hours p.r.n. Continue current therapy. Steven Weeks MD
--- NOTE | 2018-11-10 17:43 | PN ---
DATE: 11/10/2018 This is [facility] visit on the medical floor. For Dr. Pabon. SUBJECTIVE: The patient is a 73-year-old female, admitted for increasing shortness of breath, now being treated for CHF, exacerbation of COPD and pneumonia with good effect. She is now requesting need to discharge home with the patient known to have history of cancer of the lung, status post resection. At present, she is in no acute distress. OBJECTIVE/PHYSICAL EXAMINATION: VITAL SIGNS: Temperature 98.1, pulse 74, respirations 18, blood pressure 113/71, and pulse ox 99%. HEENT: Unremarkable. NECK: Supple. HEART: Regular rate. Occasional ectopic beats. LUNGS: Occasional rhonchi. ABDOMEN: Soft. EXTREMITIES: No edema. SKIN: Warm and dry. NEUROLOGIC: Awake and alert. LABORATORY DATA: The patient's labs were done. White blood cell count of 6, hemoglobin 11.7, hematocrit of 38, platelet count of 364,000 with a metabolic panel showing a BUN of 33 with a normal creatinine of 0.8, otherwise normal metabolic panel. A procalcitonin was done 2 days prior, less than 0.05 with tumor marker showing a CA 19-9 of 150 with a CEA value of 4 with further testing pending including interpretation showing faint pattern in the gamma region. ASSESSMENT: Sepsis/pneumonia, congestive heart failure, history of lung cancer, status post resection, chronic obstructive pulmonary disease, pulmonary hypertension, pulmonary fibrosis, and abnormal tumor markers. PLAN: After conservation with doctor is to continue present medical regimen with the patient to follow up either with her primary doctors and consultants in [place] or to make an appointment here upon discharge for follow up with Dr. Pabon in the office. This is a complex patient with a comprehensive medically necessary and appropriate visit carried out in excess of 15 minutes with the patient's questions answered to her satisfaction. Buddy Heart MD
--- NOTE | 2018-11-10 21:28 | PN ---
DATE: 11/10/2018 PULMONARY PROGRESS NOTE REFERRING PHYSICIAN: Daisy Mishra MD SUBJECTIVE: The patient is lying in the bed, head at 45 degrees. Night was unremarkable. Feels better. Decreased cough. No nausea, no vomiting, no diarrhea. No leg pain or leg swelling. OBJECTIVE: GENERAL: No acute distress. VITAL SIGNS: Temperature is 98, heart rate 80, respiratory is 20, blood pressure 101/68 and pulse ox 96% room air. HEENT: Moist mucous membranes. No ulcer or thrush noted. NECK: Supple. No JVD. LUNGS: Has a few scattered rhonchi. HEART: S1 and S2. ABDOMEN: Soft and nontender. No organomegaly. EXTREMITIES: No edema. NEUROLOGIC: Awake and alert. Follows simple commands. MEDICATIONS: She is on Brovana inhaled twice a day, Coreg 3.125 mg twice a day, doxycycline 100 mg twice a day, Ecotrin 81 mg daily, Flonase once to each nostril daily, Lasix 40 mg daily, Lovenox 40 mg subcutaneously daily, Protonix 40 mg , Pulmicort inhaled twice a day, Singulair 10 mg daily, Solu-Medrol 40 mg twice a day, Tylenol p.r.n. basis, verapamil 2.5 mg every 6 hours p.r.n., Xopenex inhaled every 6 hours and Zestril 2.5 mg daily. LABORATORY DATA: Shows hemoglobin 11.7, hematocrit 38, 0, WBC 6.0 and platelet count is 364. Sodium 139, potassium 4.2, chloride 95, bicarbonate is 35, BUN 33, creatinine 0.8, glucose is 89, calcium 9.2, AST 27, ALT 20, alk phos is 71 and albumin is 3.7. Nares MRSA is negative. IMPRESSION AND PLAN: Congestive heart failure; history of lung cancer, been resected in the past; chronic obstructive lung disease, oxygen-dependent; anemia; cardiomyopathy and pulmonary hypertension. Pulmonary point of view doing okay. Continue steroids, inhaled bronchodilators, antibiotics, gastric prophylaxis and deep venous thrombosis prophylaxis. Out of bed to chair. Thank you and we will follow with you. Rosa Maritnez MD [facility] # [id number]
--- NOTE | 2018-11-11 07:28 | CP.PCM.PN ---
Subjective - Date & Time of Evaluation Date of Evaluation: 11/11/18 Time of Evaluation: 07:15 - Subjective Subjective: No distress, lying in bed, awake,alert Reason for consultation and follow up:Cardiac evaluation of elevated BNP, admitted for shortness of breath, ruled out congestive heart failure Seen and examined by me and Dr. Griffin Objective - Vital Signs/Intake and Output Vital Signs (last 24 hours): Temp Pulse Resp BP Pulse Ox 97.9 F 74 22 100/60 95 11/10/18 22:18 11/10/18 22:18 11/10/18 22:18 11/10/18 22:18 11/10/18 22:18 Intake and Output: 11/11/18 11/11/18 06:59 18:59 Intake Total 600 Balance 600 - Medications Medications: Current Medications Acetaminophen (Tylenol 325mg Tab) 650 mg PO Q6H PRN PRN Reason: Pain, severe (8-10) WITH CODEI Arformoterol Tartrate (Brovana) 15 mcg IH [id number] [facility] Last Admin: 11/10/18 21:15 Dose: 15 mcg Aspirin (Ecotrin) 81 mg PO DAILY [facility] Last Admin: 11/10/18 10:51 Dose: 81 mg Budesonide (Pulmicort Respules) 0.5 mg IH BIDRESP [facility]AC[facility] Last Admin: 11/10/18 21:15 Dose: 0.5 mg Carvedilol (Coreg) 3.125 mg PO BID [facility] Last Admin: 11/10/18 19:08 Dose: Not Given Doxycycline Hyclate (Doryx) 100 mg PO Q12 [facility]; Protocol Stop: 11/15/18 22:01 Last Admin: 11/10/18 21:31 Dose: 100 mg Enoxaparin Sodium (Lovenox) 40 mg SC DAILY [facility]; Protocol Last Admin: 11/10/18 10:52 Dose: 40 mg Fluticasone Propionate (Flonase) 1 actuation NS HS [facility] Last Admin: 11/10/18 23:21 Dose: Not Given Furosemide (Lasix) 40 mg IVP DAILY [facility] Last Admin: 11/10/18 10:53 Dose: Not Given Furosemide (Lasix) 40 mg PO DAILY [facility] Last Admin: 11/10/18 10:52 Dose: Not Given Home Med (Home Med) 1 unit PO Q6 PRN PRN Reason: Pain, Mild (1-3) Last Admin: 11/11/18 06:12 Dose: 1 unit Levalbuterol HCl (Xopenex) 1.25 mg IH [id number] PRN PRN Reason: Shortness of Breath Lisinopril (Zestril) 2.5 mg PO DAILY [facility] Last Admin: 11/10/18 10:53 Dose: Not Given Methylprednisolone (Solu-Medrol) 40 mg IVP Q12 [facility] BY [facility] Last Admin: 11/10/18 21:32 Dose: 40 mg Montelukast Sodium (Singulair) 10 mg PO HS [facility] Last Admin: 11/10/18 21:31 Dose: 10 mg Pantoprazole Sodium (Protonix Ec Tab) 40 mg PO ACB [facility] Last Admin: 11/10/18 10:51 Dose: 40 mg Verapamil HCl (Verapamil Inj) 2.5 mg IVP Q6 PRN PRN Reason: Heart rate - Labs Labs: 11/10/18 07:00 11/10/18 07:00 PT 12.7 SECONDS (9.4-12.5) H 11/05/18 17:25 INR 1.14 11/05/18 17:25 APTT 31.4 Seconds (26.9-38.3) 11/05/18 17:25 - Constitutional Appears: Non-toxic, No Acute Distress - Head Exam Head Exam: NORMAL INSPECTION, NORMOCEPHALIC - Eye Exam Eye Exam: Normal appearance Pupil Exam: NORMAL ACCOMODATION - ENT Exam ENT Exam: Mucous Membranes Moist, Normal Exam - Neck Exam Neck Exam: Full ROM, Normal Inspection - Respiratory Exam Respiratory Exam: Decreased Breath Sounds, Clear to Ausculation Bilateral, NORMAL BREATHING PATTERN - Cardiovascular Exam Cardiovascular Exam: +S1, +S2 - GI/Abdominal Exam GI & Abdominal Exam: Soft, Normal Bowel Sounds - Extremities Exam Extremities Exam: Full ROM, Normal Capillary Refill - Neurological Exam Neurological Exam: Alert, Awake, Oriented x3 - Psychiatric Exam Psychiatric exam: Normal Affect, Normal Mood - Skin Skin Exam: Dry, Normal Color, Warm Assessment and Plan - Assessment and Plan (Free Text) Assessment: A 73 year old female who came in to the ER due to shortness of breath. History of extensive smoking, (60 pack years) chronic obstructive pulmonary disease, on home oxygen, history of lung cancer with chemotherapy and radiation, history of colon cancer post colectomy in 2003. CT of chest done and showed Pulmonary fibrosis most severe in the right lower and upper lobe. Multiple bullae are seen. There is a 15 mm nodule in the right apex within the fibrosis. A 6 mm nodule on the left lung apex. Small right pleural effusion. History of endovascular graft. Ruled out congestive heart failure. Admitted for exacerbation of COPD and pneumonia. Echo done and showed LVEF 40%, mildly decreased systolic dysfunction, trace mitral regurgitation, mild to moderate tricuspid regurgitation, RVSP 61 mmHg suggestive of moderate to severe pulmonary hypertension. ID on consult. On antibiotics. Pulmonary and Oncology on consult.Evaluated by GI. She follows up medical care in [place], [place]. Symptoms clinically improved. No further cardiac work up at this time.Feels okay today. Discharge planning. Will sign off and refer as needed. Plan: Clinically improved Cardiac status stable Heart rate stable Blood pressure stable On ASA 81 mg daily,Lasix 40 mg daily,Solumedrol 40 mg every 8 hours Continue current treatment Continue current medications ID on consult. Continue antibiotics GI/Pulmonary and Oncology on consult No further cardiac work up at this time. Nutritional support Discharge planning. Will follow up Plan and treatment discussed with Dr. Griffin
[2018-11-11] MEDS: Arformoterol 15 mcg/2 ml Inh Sol IH SCH ×2 (08:03→20:18)
[2018-11-11] MEDS: Budesonide 0.5 mg/2 ml Inhal Susp UD IH SCH ×2 (08:03→20:18)
[2018-11-11] MEDS: Pantoprazole 40 mg EC Tab PO SCH (08:06)
[2018-11-11] MEDS: Enoxaparin 40 mg Syringe SC SCH (10:06)
[2018-11-11] MEDS: MethylPREDNISolone 40 mg Vial IVP SCH (10:07)
--- NOTE | 2018-11-11 16:11 | PN ---
DATE: 11/11/2018 SUBJECTIVE: The patient is in bed in no acute distress, nontoxic. PHYSICAL EXAMINATION VITAL SIGNS: Temperature is 98, blood pressure is 120/80, respiratory rate of 18. HEENT: Unremarkable. NECK: Supple. LUNGS: Have decreased breath sounds. HEART: Normal S1, S2. ABDOMEN: Soft, nontender. LABORATORY EXAMINATION: Reveals a white count of 6.0, hemoglobin of 11. Chemistries reveal a BUN of 33, creatinine of 0.8. Procalcitonin is noted. Microbiology is reviewed. Nares MRSA is negative. MEDICATIONS: Review of orders reveals the patient to be on p.o. doxycycline. ASSESSMENT AND PLAN: This is a 73-year-old female with sepsis, right lower community-acquired pneumonia with acute systolic congestive heart failure on top of chronic systolic congestive heart failure in a patient with lung cancer status post resection and chronic respiratory failure with home O2 therapy and chronic obstructive lung disease, on doxycycline p.o. The patient has had adequate therapy. We will discontinue the doxycycline. The patient is at risk for developing nosocomial infections. We will follow with you. Matias Nunes MD
--- NOTE | 2018-11-11 16:31 | CP.PCM.PN ---
<Con Medrano - Last Filed: 11/11/18 16:31> Subjective - Date & Time of Evaluation Date of Evaluation: 11/11/18 Time of Evaluation: 15:10 - Subjective Subjective: PGY-4 GI Fellow Consult Note Pt lying in bed when seen this PM. States she is doing well. Rare "sour" stomach. Tolerating diet and stooling without problems. 5 point ROS negative other than stated above Objective - Vital Signs/Intake and Output Vital Signs (last 24 hours): Temp Pulse Resp BP Pulse Ox 97.3 F L 84 18 96/64 L 91 L 11/11/18 14:00 11/11/18 14:00 11/11/18 14:00 11/11/18 14:00 11/11/18 14:00 Intake and Output: 11/11/18 11/11/18 06:59 18:59 Intake Total 600 480 Balance 600 480 - Medications Medications: Current Medications Acetaminophen (Tylenol 325mg Tab) 650 mg PO Q6H PRN PRN Reason: Pain, severe (8-10) WITH CODEI Arformoterol Tartrate (Brovana) 15 mcg IH [id number] [facility] Last Admin: 11/11/18 08:03 Dose: 15 mcg Aspirin (Ecotrin) 81 mg PO DAILY [facility] Last Admin: 11/11/18 10:08 Dose: 81 mg Budesonide (Pulmicort Respules) 0.5 mg IH BIDRESP [facility] Last Admin: 11/11/18 08:03 Dose: 0.5 mg Carvedilol (Coreg) 3.125 mg PO BID [facility] Last Admin: 11/11/18 10:11 Dose: 3.125 mg Enoxaparin Sodium (Lovenox) 40 mg SC DAILY [facility]; Protocol Last Admin: 11/11/18 10:06 Dose: 40 mg Fluticasone Propionate (Flonase) 1 actuation NS HS [facility] Last Admin: 11/10/18 23:21 Dose: Not Given Furosemide (Lasix) 40 mg PO DAILY [facility] Last Admin: 11/11/18 10:07 Dose: 40 mg Home Med (Home Med) 1 unit PO Q6 PRN PRN Reason: Pain, Mild (1-3) Last Admin: 11/11/18 06:12 Dose: 1 unit Levalbuterol HCl (Xopenex) 1.25 mg IH [id number] PRN PRN Reason: Shortness of Breath Lisinopril (Zestril) 2.5 mg PO DAILY [facility] Last Admin: 11/11/18 10:11 Dose: 2.5 mg Methylprednisolone (Solu-Medrol) 40 mg IVP DAILY [facility] Montelukast Sodium (Singulair) 10 mg PO HS [facility] Last Admin: 11/10/18 21:31 Dose: 10 mg Pantoprazole Sodium (Protonix Ec Tab) 40 mg PO ACB [facility] Last Admin: 11/11/18 08:06 Dose: 40 mg - Labs Labs: 11/10/18 07:00 11/10/18 07:00 PT 12.7 SECONDS (9.4-12.5) H 11/05/18 17:25 INR 1.14 11/05/18 17:25 APTT 31.4 Seconds (26.9-38.3) 11/05/18 17:25 - Constitutional Appears: No Acute Distress, Cachectic, Chronically Ill - Head Exam Head Exam: ATRAUMATIC, NORMAL INSPECTION - Eye Exam Eye Exam: EOMI. absent: Scleral icterus - ENT Exam ENT Exam: Mucous Membranes Moist. absent: Mucous Membranes Dry - Respiratory Exam Respiratory Exam: NORMAL BREATHING PATTERN. absent: Accessory Muscle Use - GI/Abdominal Exam GI & Abdominal Exam: Soft. absent: Distended, Firm, Guarding, Rigid, Tenderness Assessment and Plan - Assessment and Plan (Free Text) Assessment: 73 yo F with COPD (2 L at baseline), h/o lung tumor (s/p resections?, XRT, chemo ), Colon CA (2004 s/p resection) presenting on 11/05/18 with worsening shortness of breath and LE edema, ultimately treated for COPD+CHF exacerbation. GI later consulted for anemia. # Normocytic Anemia: Hgb 9.9. Unclear baseline. Vitals stable and no signs of active GI bleed at this time. # H/o colon CA s/p resection # Elvated CA 19-9: Unclear significance Plan: - No plans for endoscopic eval at this time - Rec further imaging with MRI+MRCP with primary doctors in [place] vs here in [place] (patient states that she is contemplating changing care providers; she expressed understanding of need for follow-up for anemia, elevated CA 19-9 evaluation once cardiopulmonary status stable) - Cont PPI for now, can switch to H2RA trial if pt prefers Pt seen and examined with Dr. Mann; please see attestation for further details/changes. <Susan Mann V - Last Filed: 11/12/18 08:29> Objective - Vital Signs/Intake and Output Vital Signs (last 24 hours): Temp Pulse Resp BP Pulse Ox 97.4 F L 76 22 125/76 93 L 11/11/18 22:00 11/11/18 22:00 11/11/18 22:00 11/11/18 22:00 11/11/18 22:00 Intake and Output: 11/11/18 11/12/18 18:59 06:59 Intake Total 480 480 Balance 480 480 - Medications Medications: Current Medications Acetaminophen (Tylenol 325mg Tab) 650 mg PO Q6H PRN PRN Reason: Pain, severe (8-10) WITH CODEI Arformoterol Tartrate (Brovana) 15 mcg IH [id number] [facility] Last Admin: 11/11/18 20:18 Dose: 15 mcg Aspirin (Ecotrin) 81 mg PO DAILY [facility] Last Admin: 11/11/18 10:08 Dose: 81 mg Budesonide (Pulmicort Respules) 0.5 mg IH BIDRESP [facility] Last Admin: 11/11/18 20:18 Dose: 0.5 mg Carvedilol (Coreg) 3.125 mg PO BID [facility] Last Admin: 11/11/18 17:29 Dose: 3.125 mg Enoxaparin Sodium (Lovenox) 40 mg SC DAILY [facility]; Protocol Last Admin: 11/11/18 10:06 Dose: 40 mg Fluticasone Propionate (Flonase) 1 actuation NS HS [facility] Last Admin: 11/10/18 23:21 Dose: Not Given Furosemide (Lasix) 40 mg PO DAILY [facility] Last Admin: 11/11/18 10:07 Dose: 40 mg Home Med (Home Med) 1 unit PO Q6 PRN PRN Reason: Pain, Mild (1-3) Last Admin: 11/11/18 20:43 Dose: 1 unit Levalbuterol HCl (Xopenex) 1.25 mg IH [id number] PRN PRN Reason: Shortness of Breath Lisinopril (Zestril) 2.5 mg PO DAILY [facility] Last Admin: 11/11/18 10:11 Dose: 2.5 mg Methylprednisolone (Solu-Medrol) 40 mg IVP DAILY [facility] Montelukast Sodium (Singulair) 10 mg PO HS [facility] Last Admin: 11/11/18 21:09 Dose: 10 mg Pantoprazole Sodium (Protonix Ec Tab) 40 mg PO ACB [facility] Last Admin: 11/11/18 08:06 Dose: 40 mg - Labs Labs: 11/10/18 07:00 11/10/18 07:00 PT 12.7 SECONDS (9.4-12.5) H 11/05/18 17:25 INR 1.14 11/05/18 17:25 APTT 31.4 Seconds (26.9-38.3) 11/05/18 17:25 Attending/Attestation - Attestation I have personally seen and examined this patient.: Yes I have fully participated in the care of the patient.: Yes I have reviewed all pertinent clinical information, including history, physical exam and plan: Yes Notes (Text): This is an addendum to the GI progress note dictated by the fellow. The patient was seen and evaluated earlier. No abdominal complaints. Patient was found to be anemic normocytic history of colon cancer resection done. Last colonoscopy was several years ago. Patient mentioned that she was told to be high very high risk because of the respiratory status she did not want to proceed with a colonoscopy. Patient Also found to have an elevated MAL 199. CT scan was reviewed.Patient may not be able to cooperate now with holding breath for MRCP. It is reasonable to consider MRCP with MRI to further evaluate the. We will discuss with the family and the Dr. Weeks regarding further GI work-up.Patient has a very high for anesthesia. Requested the cardiopulmonary status to be optimized and endoscopy should be considered only if the family HAS fully understood and agreed for the procedure at later date unless the hemoglobin shows significant drop 11/11/18 23:28 11/12/18 08:28
--- NOTE | 2018-11-11 18:40 | PN ---
DATE: 11/11/2018 This is [facility] visit on the medical floor. For Dr. Pabon. SUBJECTIVE: The patient is 73-year-old female seen lying awake in bed, in no acute distress. This visit being treated for exacerbation of COPD, CHF with the patient still anxious for discharge, however this is as per business objects consultant's recommendations. She is known to suffer from sepsis/pneumonia with history of lung cancer, status post resection. The patient also has history of colon cancer with a colectomy in 2003 along with her lung cancer, status post chemotherapy, radiation with extensive smoking history, 60-pack year history of smoking with her CT of the chest showing pulmonary fibrosis with bullae and pleural effusion. She also suffers from pulmonary hypertension. At present, the patient is no acute distress. OBJECTIVE/PHYSICAL EXAMINATION: VITAL SIGNS: Temperature 98.1, pulse 82, respirations 18, blood pressure 122/80 and pulse ox 94%. HEENT: Unremarkable. NECK: Supple. HEART: Regular rate. LUNGS: Scattered rhonchi. ABDOMEN: Soft and nontender. EXTREMITIES: No edema. SKIN: Warm and dry. NEUROLOGIC: Awake and alert. LABORATORY DATA: The patient's labs were not done today. It will be repeated in the morning with other testing sent earlier in her hospital stay is still pending. It should be noted that procalcitonin value from 2 days ago was less than 0.05 and her free kappa light chain was 36.8, normal value being below 24 with a normal lambda light chain. The other testing again as above is pending. Status will be reported once it is returned. It should be noted that the patient does have a CA 19-9 value of 150 with this also to be investigated once she is cleared from her presenting medical problem. ASSESSMENT: For this patient is that of sepsis, right lower lobe pneumonia, congestive heart failure, pulmonary hypertension, history of lung cancer, history of colon cancer?, chronic obstructive pulmonary disease, hypoxemia on home oxygen, pulmonary fibrosis, pleural effusion, congestive heart failure and cardiomyopathy. Elevated CA 19-9 antigen. PLAN: For this patient is to continue present medical regimen as per consultants and attending. We will check her labs in the morning with followup with her primary doctor in [place] or with Dr. Pabno should she like to stay here with her family members being treated in [place]. This is a complex patient with a comprehensive medically necessary and appropriate visit carried out in excess of 25 minutes. Buddy Heart MD
--- NOTE | 2018-11-11 21:25 | PN ---
DATE: 11/11/2018 PULMONARY PROGRESS NOTE REFERRING PHYSICIAN: Daisy Mishra MD SUBJECTIVE: She is lying in the bed at 45 degrees, eyes are closed, but arousable. Feels little better. Decreased cough and shortness of breath. No chest pain. No nausea, vomiting or diarrhea. No leg pain or leg swelling. OBJECTIVE: GENERAL: No acute distress. VITAL SIGNS: Temperature is 98, heart rate 84, respiratory rate is 18, blood pressure 96/64 and pulse ox 91% on room air. HEENT: Moist mucous membranes. No ulcer or thrush noted. NECK: Supple, no JVD. LUNGS: Has crackles and few rhonchi. ABDOMEN: Soft, nontender, no organomegaly. EXTREMITIES: No edema. NEUROLOGIC: Sleepy, arousable and follows simple command. MEDICATIONS: She is on Brovana inhaled twice a day, Coreg 3.125 mg twice a day, Ecotrin 84 mg daily, Flonase once to each nostril daily, Lasix 40 mg daily, Lovenox 40 mg daily, Protonix 40 mg daily, Pulmicort inhaled twice a day, Singulair 10 mg daily, Solu-Medrol 40 mg every 12 hours, Tylenol p.r.n., Xopenex inhaled every 6 hours and Zestril 2.5 mg daily. LABORATORY DATA: Reviewed. No new lab is available since yesterday. IMPRESSION AND PLAN Congestive heart failure; history of lung cancer, been resected in the past; chronic obstructive lung disease, oxygen-dependent; anemia; cardiomyopathy with pulmonary hypertension. Pulmonary point of view, doing well. Will decrease Solu-Medrol to 40 mg daily, continue antibiotics, gastric prophylaxis, deep venous thrombosis prophylaxis. Out of bed to chair and physical therapy. Follow up labs in the morning. Thank you and we will follow with you. Rosa Martinez MD
[2018-11-11] MEDS: Fluticasone Nasal 50 mcg/Spray NS SCH (22:00)
[2018-11-12 07:30] LABS: EOS # 0.1 (0.0-0.7); EOS % 2.3 % (1.5-5.0); HEMOGLOBIN 11.5 g/dL (12.0-16.0); LYMPH # 1.5 (1.2-3.4); LYMPH % 34.8 % (22.0-35.0); MEAN CELL VOLUME 84.7 fl (80.0-105.0); MEAN CORPUSCULAR HEMOGLOBIN 25.8 pg (25.0-35.0); MEAN CORPUSCULAR HGB CONC 30.5 g/dl (31.0-37.0); MEAN PLATELET VOLUME 9.9 fl (7.0-11.0); MONO # 0.3 (0.1-0.6); MONO % 7.4 % (1.0-6.0); RBC 4.45 10^6/uL (3.5-6.1); RED CELL DISTRIBUTION WIDTH 18.1 % (11.5-14.5); WHITE BLOOD COUNT 4.3 10^3/uL (4.5-11.0)
[2018-11-12 07:31] VITALS: RESP 18
[2018-11-12 08:02] LABS: ALB/GLOB RATIO 0.8 (1.1-1.8); ALBUMIN 3.5 g/dL (3.0-4.8); ALT/SGPT 26 U/L (7-56); AST/SGOT 30 U/L (14-36); BLOOD UREA NITROGEN 36 mg/dL (7-21); CALCIUM 8.9 mg/dL (8.4-10.5); GFR NON-AFRICAN AMERICAN > 60
[2018-11-12] MEDS: Arformoterol 15 mcg/2 ml Inh Sol IH SCH ×2 (08:18→20:18)
[2018-11-12] MEDS: Budesonide 0.5 mg/2 ml Inhal Susp UD IH SCH ×2 (08:19→20:18)
[2018-11-12] MEDS: Pantoprazole 40 mg EC Tab PO SCH (08:30)
--- NOTE | 2018-11-12 09:00 | PN ---
DATE: 11/12/2018 PULMONARY PROGRESS NOTE REFERRING PHYSICIAN: Dr. Thakkar. SUBJECTIVE: The patient is seen, lying in bed. Reports feeling well this morning. Reports she still has cough but it has improved considerably. Shortness of breath has improved. No headache, rhinitis, chest pain, abdominal pain, nausea, vomiting, diarrhea, leg pain, or leg swelling reported. PHYSICAL EXAMINATION: VITAL SIGNS: Blood pressure 113/78, pulse 69, temperature 97.6, oxygen saturation 92. GENERAL: No acute distress. HEENT: Moist mucous membranes. NECK: Supple. No JVD. LUNGS: Scattered rhonchi bilaterally. CARDIOVASCULAR: S1, S2. ABDOMEN: Soft, nontender. No distention. No organomegaly. EXTREMITIES: No bilateral lower extremity edema. NEUROLOGIC: Awake, alert, verbal. Following commands. MEDICATIONS: Reviewed. Tylenol 650 every 6 hours p.r.n., Brovana 15 mcg inhalation every 12 hours, aspirin 81 mg daily, Pulmicort 0.5 mg inhalation three times a day, Coreg 3.125 mg twice a day, Lovenox 40 mg subcu daily, Flonase nasal spray at bedtime, Lasix 40 mg daily, Xopenex 1.25 mg inhalation every 6 hours p.r.n., lisinopril 2.5 mg daily, Solu-Medrol 40 mg IV push daily, Singulair 10 mg at bedtime, Protonix 40 mg a.c. LABORATORY DATA: Reviewed. WBC 4.3, RBC 4.45, hemoglobin 11.5, hematocrit 37.7, platelets 317. IMPRESSION AND PLAN: Congestive heart failure; history of lung cancer, been resected in the past; chronic obstructive lung disease, oxygen-dependent; anemia; cardiomyopathy; pulmonary hypertension. Pulmonary point of view, continue current steroid dosing. Continue antibiotic therapy. Gastric prophylaxis. Deep venous thrombosis prophylaxis. Out of bed to chair physical therapy. We will follow up with comprehensive metabolic panel when available. Recommend the patient to have full pulmonary function test with outpatient. Recommend the patient have sleep study as outpatient. The patient was seen and examined with Dr. Martinez. Discussed assessment and plan as described above. The patient was seen and examined by Coty Mullen, nurse practitioner. Discussed assessment and plan as described above. Thank you for this consult. We will follow with you. Coty Mullen APN Rosa Martinez MD [facility] # [id number]
[2018-11-12] MEDS: Enoxaparin 40 mg Syringe SC SCH (09:32)
--- NOTE | 2018-11-12 10:23 | PN ---
DATE: 11/12/2018 SUBJECTIVE: The patient is in bed in no acute distress who was seen earlier today in [facility], bed 2. PHYSICAL EXAMINATION: VITAL SIGNS: Temperature is 97, blood pressure is 113/60, respiratory of 18. HEENT: Unremarkable. NECK: Supple. LUNGS: Have decreased breath sounds. HEART: Normal S1, S2. ABDOMEN: Soft. LABORATORY DATA: Chemistries are noted. Urinalysis is noted. Immunology is reviewed. Review of orders reveals the patient to be on Solu-Medrol and off of antibiotics. The patient's doxycycline has been discontinued. ASSESSMENT AND PLAN: A 73-year-old female who was seen in [facility], bed 2, was admitted with sepsis, right lower community-acquired pneumonia with acute systolic congestive heart failure on top of chronic systolic congestive heart failure in a patient with lung cancer status post resection, chronic respiratory failure on home O2 therapy and chronic obstructive lung disease. Has completed antibiotic therapy now off of antibiotics. The patient is at risk for developing nosocomial infections. Matias Nunes MD
[2018-11-12] MEDS: MethylPREDNISolone 40 mg Vial IVP SCH (10:55)
--- NOTE | 2018-11-12 14:40 | PN ---
DATE: 11/09/2018 SUBJECTIVE: The patient is comfortable, in no distress, afebrile. Still on IV steroids. PHYSICAL EXAMINATION: As follows; VITAL SIGNS: Temperature 97.8, heart rate 66, blood pressure 125/78, and respirations 20. Saturations 99%. HEAD AND NECK: Normal. No JVD. No thyromegaly. CHEST: Clear bilaterally. LUNGS: Diminished breath sounds. CARDIAC: First sound and second sound normal. No murmur, rub, or gallop. ABDOMEN: Soft, nontender. EXTREMITIES: No edema. NEUROLOGICAL: Normal. LABORATORY STUDIES: As follows: Her PT and PTT was within normal. Laboratories on 11/08/2018; white count 7.2, hemoglobin 10.4, hematocrit 33.3, platelets 353. Chemistries: Sodium 138, potassium 4.1, chloride 95, bicarb 33, BUN 30, creatinine 0.7. Liver function test is normal except an AST of 38. Blood sugar 138. IMPRESSION AND PLAN: 1. Acute chronic obstructive pulmonary disease exacerbation. Continue intravenous Solu-Medrol, continue steroids, inhaled bronchodilators. 2. Community-acquired pneumonia, on doxycycline. Continue current therapy. Follow up with the sr. strategic sourcing manager. 3. Congestive heart failure. The patient is getting IV Lasix plus p.o. Lasix. We will discuss with Cardiology. Continue Coreg. Continue lisinopril. The patient seemed stable. 4. Generalized weakness. The patient's seems to be doing okay. She is able to walk to the bathroom. 5. Chronic back pain, spine pain. Continue oxycodone. She does have this at home. 6. The patient has been stable. We will continue current therapy. Steven Weeks MD
--- NOTE | 2018-11-12 14:52 | PN ---
DATE: 11/10/2018 SUBJECTIVE: The patient is comfortable. No distress. Afebrile. Has no chest pain. Sitting on the edge of the bed, in no distress. PHYSICAL EXAMINATION: VITAL SIGNS: Temperature 97.4, heart rate 66, blood pressure 125/76, respiratory rate 22, saturations 93% on 2 L. HEAD AND NECK: Normal. No JVD, no thyromegaly. CHEST: Diminished breath sounds on the bases, otherwise clear. CARDIAC: First sound and second sound normal. No murmur, rub, or gallop. ABDOMEN: Soft, nontender. EXTREMITIES: No edema. NEUROLOGICAL: Normal. LABORATORY DATA: On 11/10/2018 shows white count 6, hemoglobin 11.7, hematocrit 38, platelets 364. Chemistries shows sodium 139, potassium 4.2, chloride 95, bicarb 35, BUN 33, creatinine 0.8. Liver function test is normal. The patient also had serum immunoelectrophoresis that shows high gammaglobulin 2.5 beta-2 gammaglobulin is high and alpha-2, alpha-1 globulin is elevated. IMPRESSION: 1. Acute chronic obstructive pulmonary disease exacerbation. Continue intravenous steroids, inhaled bronchodilators. Follow up with her integrated logistics programs director. Continue oxygen. 2. Acute congestive heart failure. Continue Lasix, lisinopril, Coreg, seems stable. The patient is on Lasix, she has been on intravenous. She seems doing okay. 3. Community-acquired pneumonia. Oral doxycycline. Continue current therapy. 4. Chronic back pain, spine pain. She was getting oxycodone. She was getting her pain meds codeine from home one every 6 hours p.r.n. PLAN: Continue current therapy. Followup clinically. Current medications: Brovana b.i.d., Coreg, Ecotrin, doxycycline, Flonase, home meds codeine, Lasix, Lovenox, Protonix, Pulmicort, Singulair, intravenous Solu-Medrol, Tylenol, Xopenex and Zestril 2.5 mg daily. Continue current therapy. Steven Weeks MD
--- NOTE | 2018-11-12 19:15 | PN ---
DATE: 11/12/2018 This is [facility] visit on the medical floor. For Dr. Pabon. SUBJECTIVE: The patient is a 73-year-old female seen sitting up in bed, admitted for exacerbation of COPD and CHF, which is now improved, questionable pneumonia. The patient also is now known to have a history of colon cancer and lung cancer. She sees doctors in [place] where she will eventually followup she reports. Her CA19-9 antigen is elevated and if necessary we will follow her here at this facility with Dr. Pabon to be consulted should she decide to stay in [place]. She also has a long smoking history with pulmonary fibrosis also noted in her history. At present, she is in no acute distress, requesting discharge home. This is again as per her attending Dr. Weeks. OBJECTIVE/PHYSICAL EXAMINATION: VITAL SIGNS: Temperature 98, pulse 68, respirations 18, blood pressure 106/74, pulse ox 97%. HEENT: Unremarkable. Tongue is moist. NECK: Supple. HEART: Regular rate. LUNGS: Decreased breath sounds. ABDOMEN: Soft and nontender. EXTREMITIES: No edema. SKIN: Warm and dry. NEUROLOGIC: Awake and alert. LABORATORY DATA: The patient's labs were done, white blood cell count of 4.3, hemoglobin 11.5, hematocrit 37.7, platelet count of 317,000. A metabolic panel showing chloride of 96, BUN of 36, normal creatinine 0.7, otherwise normal metabolic panel. The patient's IgG value on her immunologic testing was 2643 with her IgA also at 884. Again, needs to be followed as an outpatient. ASSESSMENT: Exacerbation of chronic obstructive pulmonary disease, congestive heart failure improving, sepsis, pneumonia, history of lung cancer, colon cancer, abnormal serum immunofixation and IgG, IgA testing. Abnormal CA19-9, hypoxemia, on home oxygen, pulmonary fibrosis, cardiomyopathy, pulmonary hypertension. PLAN: This patient is to continue present medical regimen. Would consider followup as an outpatient in the office should she be discharged or with her doctor in [place] as indicated. Buddy Heart MD
[2018-11-12 21:04] LABS: FREE KAPPA SERUM 72.6 mg/L (3.3-19.4)
[2018-11-12] MEDS: Fluticasone Nasal 50 mcg/Spray NS SCH ×2 (22:11→22:16)
[2018-11-13] MEDS: Budesonide 0.5 mg/2 ml Inhal Susp UD IH SCH (08:29)
[2018-11-13] MEDS: Arformoterol 15 mcg/2 ml Inh Sol IH SCH (08:29)
[2018-11-13] MEDS: Pantoprazole 40 mg EC Tab PO SCH (09:27)
[2018-11-13] MEDS: MethylPREDNISolone 40 mg Vial IVP SCH (09:27)
[2018-11-13] MEDS: Enoxaparin 40 mg Syringe SC SCH (09:27)
--- NOTE | 2018-11-13 12:37 | PN ---
DATE: 11/13/2018 REFERRING PHYSICIAN: Dr. Weeks. SUBJECTIVE: The patient is seen, lying in bed. Daughter at bedside. No acute distress. No overnight events reported. Reports feeling well today. Still with occasional cough, but there is improvement. No headache, rhinitis, shortness of breath, chest pain, abdominal pain, nausea, vomiting, diarrhea, leg pain or leg swelling reported. PHYSICAL EXAMINATION: GENERAL: No acute distress. VITAL SIGNS: Blood pressure 112/70, oxygen saturation 97% nasal cannula, temperature 98, pulse 64. HEENT: Moist mucous membranes. NECK: Supple. No JVD. LUNGS: Few scattered rhonchi. CARDIOVASCULAR: S1, S2. ABDOMEN: Soft, nontender. No distention. No organomegaly. EXTREMITIES: No bilateral lower extremity edema. NEUROLOGIC: Awake, alert, verbal. Following commands. MEDICATIONS: Reviewed. Tylenol 650 every 6 hours p.r.n. severe pain, Brovana 15 mcg inhalation every 12 hours, aspirin 81 mg daily, Pulmicort 0.5 mg inhalation twice a day, Coreg 3.125 mg twice a day, Lovenox 40 mg subcu daily, Flonase nasal spray at bedtime, Lasix 40 mg daily, Xopenex 1.25 mg inhalation every 6 hours p.r.n., lisinopril 2.5 mg daily, Solu-Medrol 40 mg IV push daily, Singulair 10 mg at bedtime, Protonix 40 mg in the morning. LABORATORY DATA: Reviewed. Sodium 137, potassium 4, chloride 96, carbon dioxide 32, anion gap 13, BUN 36, creatinine 0.7, GFR greater than 60, random glucose 97, calcium 8.9, total bilirubin 0.4, AST 30, ALT 26, alkaline phosphatase 67, total protein 7.6, albumin 3.5, globulin 4.1, albumin-globulin ratio 0.8. IMPRESSION AND PLAN: Congestive heart failure, history of lung cancer with resection in the past, chronic obstructive lung disease, oxygen-dependent, anemia, cardiomyopathy, pulmonary hypertension, lung nodule. Pulmonary point of view, we will discontinue Solu-Medrol, try the patient on prednisone 20 mg to be tapered over the next five days. Gastric prophylaxis. Deep venous thrombosis prophylaxis. Out of bed to chair, physical therapy. Discussed with daughter and the patient regarding PACU or rehab placement. Daughter and the patient report that she will be going to her daughter's house upon discharge. The patient will need full pulmonary function test as outpatient to evaluate chronic lung disease. Will also need followup CT scan of the chest to assure the stability of lung nodules. We also recommend the patient have sleep study as outpatient to assess for sleep apnea syndrome. The patient was seen and examined with Dr. Martinez. Discussed assessment and plan as described above. The patient was seen and examined by Coty Mullen, nurse practitioner. Discussed assessment and plan as described above. Thank you for this consult. We will follow with you. Coty Mullen APN Rosa Martinez MD
[2018-11-13 13:50] VITALS: BP 108/74; PULSE 89; TEMP 98.4; O2SAT 94
--- NOTE | 2018-11-13 13:50 | PN ---
DATE: 11/12/2018 SUBJECTIVE: The patient is stable and comfortable. No distress. Walks into the bathroom. No falls. She is doing okay. PHYSICAL EXAMINATION: VITAL SIGNS: On 11/12/2018, her temperature is 98, heart rate is 74, blood pressure 100/61, respiration 18, and saturation 98%. HEAD AND NECK: Normal. No JVD. No thyromegaly. CHEST: Clear bilateral. CARDIAC: First sound and second sound normal. No murmur, rub, or gallop. ABDOMEN: Soft and nontender. EXTREMITIES: No edema. NEUROLOGIC: Normal. LABORATORY DATA: White count 4.3, hemoglobin 11.5, hematocrit 37.7, and platelet 317. Chemistry; sodium 137, potassium 4, chloride 96, bicarb 32, BUN 36, and creatinine 0.7. Liver function test is normal. PT/PTT is normal. Urinalysis is positive for change, otherwise it is normal. IMPRESSION: 1. Acute chronic obstructive pulmonary disease exacerbation. Continue steroids IV. Continue inhaled bronchodilators. 2. Community-acquired pneumonia. She received IV antibiotics; she is off now. 3. Congestive heart failure. She is on p.o. Lasix. 4. General weakness. Seems stable, walks into the bathroom. No falls. 5. Chronic spine pain. Continue current home medications. PLAN: Plan is to continue her current medications; Brovana, Coreg, aspirin, Flonase, codeine, Lasix 40, Lovenox, Protonix, Pulmicort, Singulair, Solu-Medrol 40 IV, Tylenol, Xopenex, and Zestril 2.5 mg p.o. daily. The patient will be discharged in the morning. Family will pick her up. Continue current therapy for now. Steven Weeks MD
--- NOTE | 2018-11-13 21:07 | PN ---
DATE: 11/13/2018 SUBJECTIVE: The patient was seen earlier this morning in 577, bed 2. No fevers and no chills. No nausea. PHYSICAL EXAMINATION: VITAL SIGNS: Temperature is 98, blood pressure is 108/70, respiratory rate of 18, and heart rate of 89. HEENT: Unremarkable. NECK: Supple. LUNGS: Have decreased breath sounds. HEART: Normal S1 and S2. ABDOMEN: Soft. LABORATORY DATA: Reveals the patient's white count of 4.3 and hemoglobin of 11. Chemistries are noted and the procalcitonin is 10.05. Urinalysis is noted. Immunology is reviewed and microbiology is noted. ASSESSMENT AND PLAN: This is 73-year-old female with a past medical history significant for lung cancer status post resection, chronic respiratory failure on home O2 therapy and chronic obstructive lung disease, admitted in this admission with sepsis, right lower community-acquired pneumonia with acute systolic congestive heart failure. The patient was seen early this morning in 577, bed 2. Currently off of antibiotics upon discharge. Matias Nunes MD
--- NOTE | 2018-11-13 21:31 | DS ---
HISTORY OF PRESENT ILLNESS: The patient is stable, has no chest pain. No short of breath. No nausea. No vomiting. PHYSICAL EXAMINATION: VITAL SIGNS: Temperature 98, heart rate 64, blood pressure 115/69, respirations 18, and saturation 97% on 2 liters. HEAD AND NECK: Normal. No JVD. No thyromegaly. CHEST: Clear bilateral. CARDIAC: First sound and second sound normal. ABDOMEN: Soft and nontender. EXTREMITIES: No edema. NEUROLOGIC: Normal. LABORATORY DATA: Noted for hypergammaglobulinemia. DISCHARGE DIAGNOSES: 1. Acute chronic obstructive pulmonary disease exacerbation. We will discharge the patient on p.o. Medrol Dosepak. Continue her home inhalers Advair 50/500 mcg b.i.d. 2. Acute congestive heart failure on top of chronic. Continue Lasix 40 mg p.o. daily. Continue Zestril 2.5 mg p.o. daily and Coreg 3.125 mg b.i.d. 3. Chronic back pain and spine pain. Continue her Codeine 30 mg. 4. Severe emphysema. Continue oxygen 2 liters she is having at home. The patient, she lives in [place]. She will continue that at home. 5. Hypergammaglobulinemia, abnormal gamma globulin serum. She will follow up with a Hematology consult as outpatient. I explained that to the patient before. She does have some anemia. She needs a colonoscopy, which needs to be done and elevated and anemia needs to be evaluated by Hematology in the presence of hypergammaglobulinemia. The patient while in the hospital, she was seen by Hematology consult, Dr. Buddy Heart. She was seen by Infectious Disease Dr. Matias Nunes. She was seen by Clubhouse Manager Dr. Mann and she was seen by Dr. Martinez, Pulmonary consult. She also had some tests done by other consultants, which include a bone scan, no evidence of any metastatic bone disease. The patient will be discharged home to continue her medications. The prescription was sent downstairs to the pharmacy with all doses. She should follow up with her primary care doctor. The patient should follow up with Pulmonary, Cardiology, Hematology, and Oncology. She also should follow up with Oncology since she does have a history of lung cancer resected in the past, colon cancer and abnormal immunofixations. Steven Weeks MD [facility] # [id number]
--- NOTE | 2018-11-14 08:14 | CP.PCM.PN ---
<FloraBaldemar - Last Filed: 11/14/18 08:09> Subjective - Date & Time of Evaluation Date of Evaluation: 11/13/18 Time of Evaluation: 07:00 - Subjective Subjective: Heme/onc progress note - Flora PGY - 2 Patient seen and examined at bedside. No acute overnight events. Patient states her pain is well controlled now. Denies any acute complaints. Objective - Vital Signs/Intake and Output Vital Signs (last 24 hours): Temp Pulse Resp BP Pulse Ox 98.4 F 89 18 108/74 94 L 11/13/18 13:50 11/13/18 13:50 11/13/18 13:50 11/13/18 13:50 11/13/18 13:50 - Labs Labs: 11/12/18 07:00 11/12/18 07:00 PT 12.7 SECONDS (9.4-12.5) H 11/05/18 17:25 INR 1.14 11/05/18 17:25 APTT 31.4 Seconds (26.9-38.3) 11/05/18 17:25 - Constitutional Appears: Well - Head Exam Head Exam: ATRAUMATIC, NORMAL INSPECTION, NORMOCEPHALIC - Eye Exam Eye Exam: EOMI, Normal appearance, PERRL Pupil Exam: NORMAL ACCOMODATION, PERRL - ENT Exam ENT Exam: Mucous Membranes Moist, Normal Exam - Neck Exam Neck Exam: Full ROM, Normal Inspection. absent: Lymphadenopathy - Respiratory Exam Respiratory Exam: Clear to Ausculation Bilateral, NORMAL BREATHING PATTERN - Cardiovascular Exam Cardiovascular Exam: REGULAR RHYTHM, +S1, +S2. absent: Murmur - GI/Abdominal Exam GI & Abdominal Exam: Soft, Normal Bowel Sounds. absent: Tenderness - Extremities Exam Extremities Exam: Full ROM, Normal Capillary Refill, Normal Inspection. absent: Joint Swelling, Pedal Edema - Back Exam Back Exam: NORMAL INSPECTION - Neurological Exam Neurological Exam: Alert, Awake, CN II-XII Intact, Normal Gait, Oriented x3 - Psychiatric Exam Psychiatric exam: Normal Affect, Normal Mood - Skin Skin Exam: Dry, Intact, Normal Color, Warm Assessment and Plan - Assessment and Plan (Free Text) Assessment: 73 F with pertinent medical history of past malignancy presents with shortness of breath; Heme/onc consulted for evaluation for myeloma. Of note, CT Scan was reviewed which showed R sided effusion; patient with past history of malignancy is concerning. Patient did not have any bony lesions on CT scan and does not have hypercalcemia or renal failure. Pleural effusion does not need to be tapped right now, will continue to monitor. Bone scan and thoracic spine imaging are both negative. Patient may follow up with Dr. Pabon as an outpa tient upon discharge, information has been provided to her. Sepsis with RLL CAP Acute CHF exacerbation with systolic dys Lung cancer Lung cancer status post resection COPD on home oxygen Anemia Plan Patient can follow up with Dr. Pabon in the office. <Zoey Pabon P - Last Filed: 11/14/18 19:41> Objective - Vital Signs/Intake and Output Vital Signs (last 24 hours): Temp Pulse Resp BP Pulse Ox 98.4 F 89 18 108/74 94 L 11/13/18 13:50 11/13/18 13:50 11/13/18 13:50 11/13/18 13:50 11/13/18 13:50 - Labs Labs: 11/12/18 07:00 11/12/18 07:00 PT 12.7 SECONDS (9.4-12.5) H 11/05/18 17:25 INR 1.14 11/05/18 17:25 APTT 31.4 Seconds (26.9-38.3) 11/05/18 17:25 Attending/Attestation - Attestation I have personally seen and examined this patient.: Yes I have fully participated in the care of the patient.: Yes I have reviewed all pertinent clinical information, including history, physical exam and plan: Yes
--- NOTE | 2018-11-15 03:07 | DS ---
HISTORY OF PRESENT ILLNESS: A 73-year-old significant history of lung CA, colon cancer, came in with respiratory distress. She is chronic lung with emphysema on oxygen 2 liters at home, came in with worsening breathing and short of breath. The patient originally from [place]. She has breathing disorder and she developed acute respiratory distress found to have acute congestive heart failure, community acquired pneumonia and acute COPD exacerbation. The patient was seen by Cardiology and Pulmonary. She was given IV antibiotic, Merrem, and doxycycline. She did well, switch to p.o. doxycycline and also her Lasix was given IV, did well and was switched to p.o. Lasix. The patient was maintained on other medication including inhaled bronchodilators, steroids IV, she did well and tapered down and she was discharge on p.o. Medrol Dosepak and resume all her medications. She finished her antibiotics. She seems doing otherwise very well. The patient will be discharged home and followup with her physicians in [place]. PHYSICAL EXAMINATION: VITAL SIGNS: Temperature 98.4, heart rate 89, blood pressure 108/74, respiration 18 and sat 97% on 2 liters. HEAD AND NECK: Normal. No JVD. No thyromegaly. CHEST: Clear bilateral. CARDIAC: First sound and second sound normal. ABDOMEN: Soft and nontender. EXTREMITIES: No edema. NEUROLOGIC: Normal. LABORATORY DATA: White count 4.3, hemoglobin 11.5, hematocrit 37.7 and platelets 317. Chemistry; sodium 137, potassium 4, chloride 96, bicarb 32, BUN 36 and creatinine 0.7. Liver function test is normal. DISCHARGE DIAGNOSES: 1. Acute chronic obstructive pulmonary disease exacerbation. 2. Acute congestive heart failure. 3. Acute community-acquired pneumonia. 4. Chronic spine pain. PLAN: The patient had also emphysema, O2 dependence. The patient was discharged on Medrol Dosepak. She was given Vistaril 2.5 mg daily, Lasix 40 mg daily, Flonase, Coreg 3.125 mg twice a day, aspirin 81 mg, Tylenol p.r.n. She has ibuprofen at home, she can use it p.r.n. and Advair 50/500 twice a day. The patient is also advised to followup with an oncologist as anemia with history of colon cancer followup with the primary care and oncologist for blood disorder and anemia. Steven Weeks MD
== END 2018-11-13 14:56 | disposition home or self-care (01) | DRG 193 ==
LOC: ED 16:44 → ERH 20:55 → 2RNO 23:15 → 5RSO 11-08 18:49
PROVIDERS: ADMIT Internal Medicine; ATTEND Internal Medicine
PROC: 5A09357 Assistance with Respiratory Ventilation, Less than 24 Consecutive Hours, Continuous Positive Airway Pressure (ICD-10-PCS; principal; 2018-11-06)
DX: J18.1 Lobar pneumonia, unspecified organism (principal); I50.23 Acute on chronic systolic (congestive) heart failure; R64 Cachexia; Z68.1 Body mass index [BMI] 19.9 or less, adult; I42.9 Cardiomyopathy, unspecified; J96.11 Chronic respiratory failure with hypoxia; J47.0 Bronchiectasis with acute lower respiratory infection; J43.9 Emphysema, unspecified; I11.0 Hypertensive heart disease with heart failure; J84.10 Pulmonary fibrosis, unspecified; D64.9 Anemia, unspecified; D89.2 Hypergammaglobulinemia, unspecified; I27.20 Pulmonary hypertension, unspecified; I08.1 Rheumatic disorders of both mitral and tricuspid valves; Y95 Nosocomial condition; Z85.118 Personal history of other malignant neoplasm of bronchus and lung; Z99.81 Dependence on supplemental oxygen; Z85.038 Personal history of other malignant neoplasm of large intestine; Z87.891 Personal history of nicotine dependence; Z92.21 Personal history of antineoplastic chemotherapy; Z92.3 Personal history of irradiation; Z88.0 Allergy status to penicillin